=== PATIENT | male | born 1960 | race Caucasian/White ===

== ENCOUNTER 2017-08-19 09:09 | Emergency (ER) | payer SELFPAY ==
--- NOTE | 2017-08-19 09:28 | ED ---
Respiratory - HPI Summary HPI Summary: Patient presents to the ED with cough, congestion and feeling fatigued. Denies any flu contacts. Endorses sick contacts () who was diagnosed with a sinus infection recently. He denies any nasal congestion or sinus pressure. Denies any visual changes or headaches. Symptoms are aggravated by nothing, relieved with nothing. He has not tried anything [id number] for relief. Symptoms began 1 week ago, but worsened this morning. He states he was sent here by his work for a checkup since he was coughing. 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 He denies any chest pain, shortness of breath, weakness, fever, sweats, chills. Borderline type II diabetic and takes 5 mg glipizide. History of hypertension and is on 25 mg metoprolol. PCP is Dr. Ledesma. Previous smoker, quit 2-1/2 years ago. - History of Current Complaint Chief Complaint: EDFluSymptoms Stated Complaint: FLU LIKE SYMPTOMS Time Seen by Provider: 08/19/17 09:18 Hx Obtained From: Patient Onset/Duration: Gradual Onset Timing: Constant Initial Severity: Moderate Current Severity: Moderate Pain Intensity: 0 Character: Cough (Nonproductive) Sputum Amount: None Aggravating Factor(s): URI Alleviating Factor(s): Nothing Associated Signs and Symptoms: Negative - Risk Factors Status Asthmaticus Risk Factors: Negative Pulmonary Embolism Risk Factors: Negative Cardiac Risk Factors: Hypertension, Smoking, Diabetes, Elevated Lipids Pseudomonas Risk Factors: Negative Tuberculosis Risk Factors: Negative - Allergy/Home Medications Allergies/Adverse Reactions: Allergies Allergy/AdvReac Type Severity Reaction Status Date / Time Penicillins Allergy Rash Verified 08/19/17 09:14 PMH/Surg Hx/FS Hx/Imm Hx Previously Healthy: Yes Infectious Disease History: No Infectious Disease History: Denies: Traveled Outside the [place] in Last 30 Days - Social History Occupation: Employed Full-time Lives: With Family Alcohol Use: None Hx Substance Use: No Substance Use Type: Reports: None Hx Tobacco Use: Yes Smoking Status (MU): Former Smoker Review of Systems Constitutional: Negative Negative: Fever, Chills, Fatigue, Skin Diaphoresis Eyes: Negative Respiratory: Negative Positive: Cough Positive: no symptoms reported, see HPI Musculoskeletal: Negative Skin: Negative Neurological: Negative All Other Systems Reviewed And Are Negative: Yes Physical Exam Triage Information Reviewed: Yes Vital Signs On Initial Exam: Initial Vitals Temp Pulse Resp BP Pulse Ox 98.0 F 76 16 147/107 95 08/19/17 09:14 08/19/17 09:14 08/19/17 09:14 08/19/17 09:14 08/19/17 09:14 Vital Signs Reviewed: Yes Appearance: Positive: Well-Appearing, Well-Nourished Head/Face: Positive: Normal Head/Face Inspection Eyes: Positive: EOMI, MEHUL, Conjunctiva Clear Neck: Positive: Supple, No Lymphadenopathy Respiratory/Lung Sounds: Positive: Clear to Auscultation, Breath Sounds Present Cardiovascular: Positive: RRR, Pulses are Symmetrical in both Upper and Lower Extremities Musculoskeletal: Positive: Normal, Strength/ROM Intact Neurological: Positive: Speech Normal Psychiatric: Positive: Normal, Affect/Mood Appropriate AVPU Assessment: Alert Diagnostics - Vital Signs Vital Signs Temp Pulse Resp BP Pulse Ox 08/19/17 09:14 98.0 F 76 16 147/107 95 - Laboratory Lab Statement: Any lab studies that have been ordered have been reviewed, and results considered in the medical decision making process. Disposition - Course Course Of Treatment: The course of treatment, the patient is evaluated for chest congestion, cough and possibly flu exposure. Flu swab obtained. X-ray obtained. Lungs clear to auscultation bilaterally. No fevers, sweats, chills or other signs of systemic illness. Labs not obtained. IMPRESSION: Nonspecific pattern which could represent sequela of chronic obstructive lung. disease or potentially atypical bronchopneumonia. Correlate with clinical assessment. Will treat with azithromycin. Patient is okay for discharge at this time and voices no concerns. No given for work. - Diagnoses Provider Diagnoses: Acute bronchitis Discharge - Discharge Plan Condition: Stable Disposition: HOME Prescriptions: Azithromycin TAB* [Zithromax TAB (Z-YAMILKA) 250 mg #6 tabs] 250 mg PO DAILY #4 tab Patient Education Materials: Acute Bronchitis (ED) Forms: *Work Release Referrals: Baltazar TORRES,Jesús Maddox [Primary Care Provider] - Additional Instructions: Please follow-up with Dr. Ledesma Humidifier in the home will help Tea, honey, lemon will help with any throat discomfort Azithromycin take 1 tab daily for 4 days Start this medication tomorrow Note is given for 1 day off work
--- NOTE | 2017-08-19 10:40 | RAD ---
INDICATION: Few days flulike symptoms; cough and congestion. History of tobacco use. COMPARISON: No relevant prior exams available on the [facility] PACS for comparison. TECHNIQUE: Dual energy PA and routine lateral views of the chest were obtained. REPORT: Mild prominence of the interstitial markings. No compelling focal alveolar consolidation. Clear pleural spaces. Negative for pneumothorax. The heart, pulmonary vasculature, and mediastinal contours are unremarkable. IMPRESSION: Nonspecific pattern which could represent sequela of chronic obstructive lung disease or potentially atypical bronchopneumonia. Correlate with clinical assessment.
[2017-08-19] MEDS ORDERED: Azithromycin TAB* 250 MG PO ONE (11:16)
[2017-08-19 11:40] VITALS: BP 121/83
== END 2017-08-19 11:39 | disposition home or self-care (01) ==
LOC: ED 09:09
DX: J20.9 Acute bronchitis, unspecified (principal); I10 Essential (primary) hypertension; Z79.01 Long term (current) use of anticoagulants; Z86.711 Personal history of pulmonary embolism; Z87.891 Personal history of nicotine dependence
CPT/HCPCS: 71046; 87502; 99282; A9270-GY

== ENCOUNTER 2017-08-22 14:41 | Emergency (ER) | payer SELFPAY ==
--- NOTE | 2017-08-22 17:28 | RAD ---
INDICATION: Cough COMPARISON: Similar chest x-ray dated August 19, 2017 TECHNIQUE: PA and lateral views of the chest were obtained. FINDINGS: The heart and mediastinum are normal in size and contour. There are increased interstitial markings bilaterally similar in appearance to the prior chest x-ray. There is no focal lobar consolidation. There is no evidence of large pleural effusion. Visualized bones are normal for the patient's age. There is no radiographic evidence of free air beneath the diaphragm IMPRESSION: CHEST X-RAY FINDINGS IN THE CHRONIC SETTING COULD BE DUE TO EARLY CHANGES OF INTERSTITIAL LUNG DISEASE. IN THE ACUTE SETTING THIS APPEARANCE COULD BE ASSOCIATED WITH PULMONARY EDEMA, PNEUMONITIS OR ATYPICAL PNEUMONIA.
--- NOTE | 2017-08-22 18:02 | ED ---
Respiratory - HPI Summary HPI Summary: 57-year-old male presents with cough for the past week. He admits to fatigue. He admits to shortness of breath and chest tightness. He has been using an inhaler and a Z-Uyng with minimal relief. He states that pain feels like rib pain. He has a history of PE and is currently on lifelong Plavix for such. He states this pain does not feel like such. He denies any history of asthma or COPD. He was a smoker. He denies any sinus congestion. He denies any headache. He denies any fever. He states he is here because the cough does not seem to be getting any better and the rib pain is new. He is a diabetic. - History of Current Complaint Chief Complaint: EDFluSymptoms Stated Complaint: COUGH/CHEST TIGHTNESS Time Seen by Provider: 08/22/17 17:16 Pain Intensity: 5 - Allergy/Home Medications Allergies/Adverse Reactions: Allergies Allergy/AdvReac Type Severity Reaction Status Date / Time Penicillins Allergy Rash Verified 08/19/17 09:14 PMH/Surg Hx/FS Hx/Imm Hx Endocrine/Hematology History: Reports: Hx Anticoagulant Therapy, Hx Diabetes Cardiovascular History: Reports: Hx Hypertension Infectious Disease History: No Infectious Disease History: Denies: Traveled Outside the [place] in Last 30 Days - Family History Known Family History: Positive: Hypertension - Social History Alcohol Use: None Hx Substance Use: No Substance Use Type: Reports: None Hx Tobacco Use: Yes Smoking Status (MU): Former Smoker Review of Systems Negative: Fever Positive: Chest Pain Positive: Shortness Of Breath, Cough Negative: Abdominal Pain All Other Systems Reviewed And Are Negative: Yes Physical Exam Triage Information Reviewed: Yes Vital Signs On Initial Exam: Initial Vitals Temp Pulse Resp BP Pulse Ox 98.3 F 86 17 143/89 97 08/22/17 14:46 08/22/17 14:46 08/22/17 14:46 08/22/17 14:46 08/22/17 14:46 Vital Signs Reviewed: Yes Appearance: Positive: Well-Appearing Skin: Positive: Warm, Dry Head/Face: Positive: Normal Head/Face Inspection Eyes: Positive: Normal, EOMI, MEHUL, Conjunctiva Clear ENT: Positive: Normal ENT inspection, Pharynx normal, TMs normal Respiratory/Lung Sounds: Positive: Clear to Auscultation, Breath Sounds Present Cardiovascular: Positive: Normal, RRR Abdomen Description: Positive: Nontender, Soft Bowel Sounds: Positive: Present Musculoskeletal: Positive: Normal Neurological: Positive: Normal Psychiatric: Positive: Normal Diagnostics - Vital Signs Vital Signs Temp Pulse Resp BP Pulse Ox 08/22/17 16:33 98.6 F 88 18 152/93 96 08/22/17 14:46 98.3 F 86 17 143/89 97 - Laboratory Lab Results: Lab Results 08/22/17 Range/Units 17:00 Influenza A (Rapid) Negative (Negative) Influenza B (Rapid) Negative (Negative) Result Diagrams: 08/22/17 18:22 08/22/17 18:22 Lab Statement: Any lab studies that have been ordered have been reviewed, and results considered in the medical decision making process. - Radiology chest Xray Interpretation: Positive (See Comments) - IMPRESSION: CHEST X-RAY FINDINGS IN THE CHRONIC SETTING COULD BE DUE TO EARLY CHANGES OF INTERSTITIAL LUNG DISEASE. IN THE ACUTE SETTING THIS APPEARANCE COULD BE ASSOCIATED WITH PULMONARY EDEMA, PNEUMONITIS OR ATYPICAL PNEUMONIA. Radiology Interpretation Completed By: Radiologist - EKG No standard instances Cardiac Rate: NL EKG Rhythm: Sinus Rhythm EKG Interpretation: sinus rhythm Disposition - Course Course Of Treatment: 57-year-old male presents with cough for the past week. He admits to fatigue. He admits to shortness of breath and chest tightness. He has been using an inhaler and a Z-Yung with minimal relief. He states that pain feels like rib pain. He has a history of PE and is currently on lifelong Plavix for such. He states this pain does not feel like such. He denies any history of asthma or COPD. He was a smoker. He denies any sinus congestion. He denies any headache. He denies any fever. He states he is here because the cough does not seem to be getting any better and the rib pain is new. He is a diabetic. on exam lungs CTA. ekg normal. chest xray possible atypical pneumonia. patient already on zpack. will have follow up with primary. patient understand and agrees with plan. - Differential Dx - Cardiopulmonary Differential Diagnoses - Cardiopulmonary: Bronchitis, Influenza, Lower Resp Infection - Diagnoses Provider Diagnoses: Bronchitis Discharge - Discharge Plan Condition: Good Disposition: HOME Prescriptions: Benzonatate CAP* [Tessalon 100 MG CAP*] 100 mg PO TID PRN #21 cap PRN Reason: Cough Patient Education Materials: Acute Bronchitis (ED) Forms: *Work Release Referrals: Baltazar TORRES,Jesús Maddox [Primary Care Provider] - Additional Instructions: Use Tessalon three times a day for cough Use inhaler one puff every 4 hours for cough as needed Use saline in the nose Use humidifier or place warm bowls of water around the room for cough Cough can last up to 4 weeks Follow up with primary care physician in 5 days Return to ED if develop any new or worsening symptoms
[2017-08-22 18:31] LABS: ABS Basophils 0.2 10^3/ul (0-0.2); ABS Eosinophils 0.3 10^3/ul (0-0.6); ABS Lymphocytes 2.9 10^3/ul (1.0-4.8); ABS Monocytes 0.9 10^3/ul (0-0.8); ABS Neutrophils 6.3 10^3/ul (1.5-7.7); ABS Nucleated RBC 0 10^3/ul; Eosinophil % 3.2 % (0-6); Hematocrit 45 % (42-52); Hemoglobin 15.8 g/dl (14.0-18.0); Lymphocyte % 27.4 % (25-47); Mean Corpuscular HGB Conc 35 g/dl (31-36); Mean Corpuscular Hemoglobin 30 pg (27-31); Mean Corpuscular Volume 86 fL (80-94); Mean Platelet Volume 9 um3 (7.4-10.4); Nucleated Red Blood Cells % 0.1; Platelet Count 192 10^3/ul (150-450); Red Blood Count 5.25 10^6/ul (4.0-5.4); Red Cell Distribution Width 15 % (10.5-15); White Blood Count 10.7 10^3/ul (3.5-10.8)
[2017-08-22 18:50] LABS: EGFR Non-African American 66.9 (>60)
[2017-08-22] MEDS ORDERED: Benzonatate CAP* 100 MG PO ONE (19:01)
[2017-08-22 19:22] VITALS: BP 152/81
== END 2017-08-22 19:22 | disposition home or self-care (01) ==
LOC: ED 14:41
DX: J40 Bronchitis, not specified as acute or chronic (principal); Z87.891 Personal history of nicotine dependence; Z88.0 Allergy status to penicillin
CPT/HCPCS: 36415; 71046; 80053; 83880; 84484; 85025; 87502; 93005; 99281; A9270-GY

== ENCOUNTER 2017-10-09 15:34 | Emergency (ER) | payer OTHER ==
--- NOTE | 2017-10-09 16:42 | RAD ---
INDICATION: Chest pain COMPARISON: August 22, 2017 TECHNIQUE: PA and lateral dual-energy views were obtained. FINDINGS: Bones/Soft Tissues: There are no acute bony findings. Cardiomediastinal: The cardiomediastinal silhouette is normal. Lungs: There are no infiltrates. There is mild chronic interstitial change. Pleura: There are no pleural effusions. Other: None IMPRESSION: NO ACTIVE DISEASE.
[2017-10-09 17:02] LABS: ABS Basophils 0.1 10^3/ul (0-0.2); ABS Eosinophils 0.2 10^3/ul (0-0.6); ABS Lymphocytes 2.5 10^3/ul (1.0-4.8); ABS Monocytes 0.7 10^3/ul (0-0.8); ABS Neutrophils 8.7 10^3/ul (1.5-7.7); ABS Nucleated RBC 0 10^3/ul; Eosinophil % 1.7 % (0-6); Hematocrit 44 % (42-52); Hemoglobin 15.1 g/dl (14.0-18.0); Lymphocyte % 20.5 % (25-47); Mean Corpuscular HGB Conc 34 g/dl (31-36); Mean Corpuscular Hemoglobin 30 pg (27-31); Mean Corpuscular Volume 87 fL (80-94); Nucleated Red Blood Cells % 0; Platelet Count 192 10^3/ul (150-450); Red Blood Count 5.06 10^6/ul (4.0-5.4); Red Cell Distribution Width 14 % (10.5-15); White Blood Count 12.2 10^3/ul (3.5-10.8)
[2017-10-09 17:28] LABS: EGFR Non-African American 74.4 (>60)
[2017-10-09 18:14] LABS: Urine Appearance Clear; Urine Blood Negative (Negative); Urine Color Yellow; Urine Ketones Trace (Negative); Urine Protein Negative (Negative); Urine Specific Gravity 1.022 (1.010-1.030); Urine Urobilinogen Negative (Negative)
[2017-10-09 18:41] VITALS: BP 129/76
--- NOTE | 2017-10-13 08:02 | ED ---
Antony Gil Angela, scribed for Jeremiah Conteh MD on 10/09/17 at 1616 . Shortness of Breath - HPI Summary HPI Summary: This pt is a 57 y/o male presenting to [facility] c/o SOB that began yesterday morning. Pt describes SOB as dyspnea at rest. He has been using nebulizer with no relief. Pt denies LE pain, chest pain, abd pain. PMHx includes PE, DM, HTN, high cholesterol. Pt is currently on Xarelto. - History of Current Complaint Chief Complaint: EDShortnessOfBreath Time Seen by Provider: 10/09/17 16:03 Hx Obtained From: Patient Onset/Duration: Lasting Days - 1, Still Present Timing: Constant Current Severity: Moderate Dyspnea At: Rest Aggrevating Factors: Nothing Alleviating Factors: Nothing Associated Signs & Symptoms: Negative - Allergy/Home Medications Allergies/Adverse Reactions: Allergies Allergy/AdvReac Type Severity Reaction Status Date / Time Penicillins Allergy Rash Verified 10/09/17 17:35 Home Medications: Home Medications Lisinopril TAB* [Prinivil TAB 10 MG*] 1 tab PO DAILY 10/09/17 [History Confirmed 10/09/17] Metoprolol Succinate XL TAB* [Toprol XL TAB*] 1 tab PO DAILY 10/09/17 [History Confirmed 10/09/17] Rivaroxaban TAB(*) [Xarelto 10 mg (*)] 20 mg PO DAILY 10/09/17 [History Confirmed 10/09/17] glipiZIDE TAB* [Glucotrol TAB*] 5 mg PO DAILY 10/09/17 [History Confirmed ] PMH/Surg Hx/FS Hx/Imm Hx Endocrine/Hematology History: Reports: Hx Anticoagulant Therapy, Hx Diabetes Cardiovascular History: Reports: Hx Hypertension, Other Cardiovascular Problems/ Disorders - high cholesterol Respiratory History: Reports: Hx Pulmonary Embolism - x2 Infectious Disease History: No Infectious Disease History: Denies: Traveled Outside the [place] in Last 30 Days - Family History Known Family History: Positive: Hypertension - Social History Alcohol Use: None Hx Substance Use: No Substance Use Type: Reports: None Hx Tobacco Use: Yes Smoking Status (MU): Former Smoker Review of Systems Negative: Fever Eyes: Negative Negative: Chest Pain Positive: Shortness Of Breath Negative: Abdominal Pain Negative: Other - LE pain Neurological: Negative All Other Systems Reviewed And Are Negative: Yes Physical Exam - Summary Physical Exam Summary: VITAL SIGNS: Reviewed. GENERAL: Patient is an obese male who is lying comfortable in the stretcher. Patient is not in any acute respiratory distress. HEAD AND FACE: No signs of trauma. No ecchymosis, hematomas or skull depressions. No sinus tenderness. EYES: PERRLA, EOMI x 2, No injected conjunctiva, no nystagmus. EARS: Hearing grossly intact. Ear canals and tympanic membranes are within normal limits. MOUTH: Oropharynx within normal limits. NECK: Supple, trachea is midline, no adenopathy, no JVD, no carotid bruit, no c- spine tenderness, neck with full ROM. CHEST: Symmetric, no tenderness at palpation LUNGS: Clear to auscultation bilaterally. No wheezing or crackles. CVS: Regular rate and rhythm, S1 and S2 present, no murmurs or gallops appreciated. ABDOMEN: Soft, non-tender. No signs of distention. No rebound no guarding, and no masses palpated. Bowel sounds are normal. EXTREMITIES: FROM in all major joints, no edema, no cyanosis or clubbing. NEURO: Alert and oriented x 3. No acute neurological deficits. Speech is normal and follows commands. SKIN: Dry and warm Triage Information Reviewed: Yes Vital Signs On Initial Exam: Initial Vitals Temp Pulse Resp BP Pulse Ox 96.7 F 101 24 140/90 95 10/09/17 15:38 10/09/17 15:38 10/09/17 15:38 10/09/17 15:38 10/09/17 15:38 Vital Signs Reviewed: Yes Diagnostics - Vital Signs Vital Signs Temp Pulse Resp BP Pulse Ox 10/09/17 15:38 96.7 F 101 24 140/90 95 - Laboratory Result Diagrams: 10/09/17 16:40 10/09/17 16:40 Lab Statement: Any lab studies that have been ordered have been reviewed, and results considered in the medical decision making process. - Radiology Chest XR Xray Interpretation: No Acute Changes - IMPRESSION: No active disease. Dr. Conteh has reviewed this radiology report. Radiology Interpretation Completed By: Radiologist - EKG 15:40 Cardiac Rate: NL EKG Rhythm: Sinus Rhythm - at 94 bpm EKG Interpretation: No STEMI. Re-Evaluation - Re-Evaluation First Eval Re-Evaluation Time: 18:04 Comment: I reviewed the lab and XR results with the pt. Pt will be discharged home. Course/Dx - Course Assessment/Plan: This pt is a 57 y/o male presenting to [facility] c/o SOB that began yesterday morning. Pt reports dyspnea at rest. He has been using nebulizer with no relief. Pt denies LE pain, chest pain, abd pain. PMHx includes PE x2, HTN, high cholesterol. Pt is currently on Xarelto. Test results without any significant abnormalities except for WBC of 12.2, ABG pO2 of 64, O2 saturation of 96.2, glucose of 250. Chest XR shows no active disease. Therefore he will be discharged to home with follow up from his PCP. I discussed all the findings and test results with the patient. All questions were answered to patient satisfaction. There were no further complaints or concerns. He is instructed to return to the ED for any worsening or new symptoms. Pt is hemodynamically stable, alert and oriented x3. - Diagnoses Provider Diagnoses: Shortness of breath Discharge - Sign-Out/Discharge Documenting (check all that apply): Discharge - discharge to home - Discharge Plan Condition: Stable Disposition: HOME Patient Education Materials: Shortness of Breath (ED) Referrals: Antwon MCDONALD,Milly Cisse [Primary Care Provider] - Additional Instructions: Please follow up with your primary care provider. RETURN TO THE ED FOR ANY NEW OR WORSENING SYMPTOMS. The documentation as recorded by the Antony coon Angela accurately reflects the service I personally performed and the decisions made by me, Jeremiah Conteh MD.
== END 2017-10-09 18:40 | disposition home or self-care (01) ==
LOC: ED 15:34
DX: R06.02 Shortness of breath (principal)
CPT/HCPCS: 36415; 36600; 71046; 80053; 81003; 82553; 82803; 83605; 83880; 84484; 85025; 85379; 85730; 86140; 87040; 93005; 99284

== ENCOUNTER 2017-10-12 06:07 | Emergency (ER) | payer OTHER ==
[2017-10-12] MEDS ORDERED: Albuterol/Ipratropium NEB.SOL* Albuterol 2.5 MG/Ipratropium 0.5 MG 3 ML INH ONE (06:42)
[2017-10-12] MEDS ORDERED: predniSONE TAB* 20 MG PO ONE (06:43)
[2017-10-12] MEDS ORDERED: Levofloxacin TAB* 750 MG PO ONE (06:44)
[2017-10-12] MEDS ORDERED: Albuterol 2.5 MG/3 ML NEB.SOL* (0.083%) INH SCH (07:00)
--- NOTE | 2017-10-12 07:33 | ED ---
Annita Gil Nilda, scribed for Domenico Ac MD on 10/12/17 at 0647 . Shortness of Breath - HPI Summary HPI Summary: This patient is a 57 year old M presenting to [facility] accompanied by with a chief complaint of gradually worsening SOB at rest for the past few days. The patient rates the pain 0/10 in severity. Symptoms aggravated by deep inspiration. Symptoms alleviated by inhaler (albuterol) and nebulizer at home. Patient reports nonproductive cough and left sided chest discomfort when taking deep breathes. Pt states he is former smoker (discontinued smoking 2 years ago after smoking for 39 years). Pt was in ED 4 days ago for same symptoms, yielding negative CXR per medical record. Yesterday, pt saw technical fellow at [place] who told pt he had URI. Pt states hes never been Dx with COPD or emphysema. - History of Current Complaint Chief Complaint: EDShortnessOfBreath Time Seen by Provider: 10/12/17 06:17 Hx Obtained From: Patient, Medical Records Onset/Duration: Sudden Onset, Lasting Days, Still Present Timing: Constant Dyspnea At: Rest Aggrevating Factors: Deep Breaths Alleviating Factors: Bronchodilators Associated Signs & Symptoms: Cough (Nonproductive) - Allergy/Home Medications Allergies/Adverse Reactions: Allergies Allergy/AdvReac Type Severity Reaction Status Date / Time Penicillins Allergy Rash Verified 10/12/17 06:15 Home Medications: Home Medications Atorvastatin* [Lipitor*] 20 mg PO DAILY 10/12/17 [History Confirmed 10/12/17] PMH/Surg Hx/FS Hx/Imm Hx Endocrine/Hematology History: Reports: Hx Anticoagulant Therapy, Hx Diabetes Cardiovascular History: Reports: Hx Hypertension Respiratory History: Reports: Hx Asthma, Other Respiratory Problems/Disorders - HX PE 2016 Infectious Disease History: No Infectious Disease History: Denies: Traveled Outside the [place] in Last 30 Days - Family History Known Family History: Positive: Hypertension - Social History Alcohol Use: None Hx Substance Use: No Substance Use Type: Reports: None Hx Tobacco Use: Yes Smoking Status (MU): Former Smoker Review of Systems Positive: Chest Pain - left sided chest discomfort Positive: Shortness Of Breath, Cough All Other Systems Reviewed And Are Negative: Yes Physical Exam - Summary Physical Exam Summary: VITAL SIGNS: Reviewed. GENERAL: Patient is a well-developed and nourished male who is lying comfortable in the stretcher. Patient is not in any acute respiratory distress. HEAD AND FACE: No signs of trauma. No ecchymosis, hematomas or skull depressions. No sinus tenderness. EYES: PERRLA, EOMI x 2, No injected conjunctiva, no nystagmus. EARS: Hearing grossly intact. Ear canals and tympanic membranes are within normal limits. MOUTH: Oropharynx within normal limits. NECK: Supple, trachea is midline, no adenopathy, no JVD, no carotid bruit, no c- spine tenderness, neck with full ROM. CHEST: Symmetric, no tenderness at palpation LUNGS: Clear to auscultation bilaterally. No wheezing or crackles. Decreased breath sounds bilat. CVS: Regular rate and rhythm, S1 and S2 present, no murmurs or gallops appreciated. ABDOMEN: Soft, non-tender. No signs of distention. No rebound no guarding, and no masses palpated. Bowel sounds are normal. EXTREMITIES: FROM in all major joints, no edema, no cyanosis or clubbing. NEURO: Alert and oriented x 3. No acute neurological deficits. Speech is normal and follows commands. SKIN: Dry and warm Triage Information Reviewed: Yes Vital Signs On Initial Exam: Initial Vitals Temp Pulse Resp BP Pulse Ox 97.7 F 79 20 115/94 97 10/12/17 06:11 10/12/17 06:11 10/12/17 06:11 10/12/17 06:11 10/12/17 06:11 Vital Signs Reviewed: Yes Diagnostics - Vital Signs Vital Signs Temp Pulse Resp BP Pulse Ox 10/12/17 06:11 97.7 F 79 20 115/94 97 - Laboratory Lab Statement: Any lab studies that have been ordered have been reviewed, and results considered in the medical decision making process. Course/Dx - Course Assessment/Plan: 57 y/o with difficulty breathing and coughing past few days. Hx smoking but quit 2 years ago after smoking for 30-40 years. Exam reveals decreased breath sounds. Pt was in ED a few days ago for same symptoms and got full work up with negative D-dimer and negative CXR. He will be sent home with Levaquin and prednisone and follow up with PCP. Pt has albuterol and nebulizer at home. - Diagnoses Provider Diagnoses: Bronchitis Discharge - Sign-Out/Discharge Documenting (check all that apply): Discharge - home - Discharge Plan Condition: Stable Disposition: HOME Prescriptions: Levofloxacin TAB* [Levaquin TAB*] 750 mg PO DAILY #7 tab predniSONE TAB* [Deltasone TAB*] 40 mg PO DAILY #10 tab Patient Education Materials: Acute Bronchitis (ED) Forms: *Work Release Referrals: Antwon MCDONALD,Milly Cisse [Primary Care Provider] - 3 Days Additional Instructions: RETURN TO THE EMERGENCY DEPARTMENT FOR CHANGING OR WORSENING SYMPTOMS. The documentation as recorded by the Annita coon Nilda accurately reflects the service I personally performed and the decisions made by Osorio sharma Abdul, MD.
[2017-10-12 07:35] VITALS: BP 128/82
== END 2017-10-12 07:35 | disposition home or self-care (01) ==
LOC: ED 06:07
DX: J40 Bronchitis, not specified as acute or chronic (principal); R05 Cough; R06.02 Shortness of breath; R07.9 Chest pain, unspecified; Z87.891 Personal history of nicotine dependence
CPT/HCPCS: 94640; 99283; A9270-GY; J7512

== ENCOUNTER 2017-12-19 07:16 | Observation (INO) | payer MEDICAID, OTHER ==
[2017-12-19] MEDS ORDERED: methylPREDNISolone 125 MG* 2 ML VIAL IV ONE (07:23)
[2017-12-19 08:05] LABS: ABS Basophils 0 10^3/ul (0-0.2); ABS Eosinophils 0.1 10^3/ul (0-0.6); ABS Monocytes 0.5 10^3/ul (0-0.8); ABS Neutrophils 13.1 10^3/ul (1.5-7.7); ABS Nucleated RBC 0 10^3/ul; Eosinophil % 0.8 % (0-6); Hematocrit 48 % (42-52); Hemoglobin 16.8 g/dl (14.0-18.0); Lymphocyte % 6.5 % (25-47); Mean Corpuscular HGB Conc 35 g/dl (31-36); Mean Corpuscular Hemoglobin 30 pg (27-31); Mean Corpuscular Volume 87 fL (80-94); Mean Platelet Volume 9.3 um3 (7.4-10.4); Nucleated Red Blood Cells % 0; Platelet Count 185 10^3/ul (150-450); Red Blood Count 5.54 10^6/ul (4.00-5.40); Red Cell Distribution Width 14 % (10.5-15); White Blood Count 14.7 10^3/ul (3.5-10.8)
--- NOTE | 2017-12-19 08:17 | RAD ---
INDICATION: Short of breath COMPARISON: October 09, 2017 TECHNIQUE: An AP seated portable view obtained at 0811 hours is submitted. FINDINGS: Bones/Soft Tissues: There are no acute bony findings. Cardiomediastinal: The cardiomediastinal silhouette is normal. Lungs: There are no infiltrates. Examination is mildly expiratory. Pleura: There are no pleural effusions. Other: There is mild elevation right hemidiaphragm. IMPRESSION: MILDLY EXPIRATORY EXAMINATION. NO ACTIVE DISEASE.
[2017-12-19 08:26] LABS: EGFR Non-African American 80.7 (>60)
[2017-12-19 08:52] LABS: Urine Appearance Clear; Urine Blood Negative (Negative); Urine Color Yellow; Urine Ketones Negative (Negative); Urine Protein Negative (Negative); Urine Specific Gravity 1.021 (1.010-1.030); Urine Urobilinogen Negative (Negative)
[2017-12-19] MEDS: Albuterol/Ipratropium NEB.SOL* Albuterol 2.5 MG/Ipratropium 0.5 MG 3 ML INH SCH ×3 (08:56→11:56)
[2017-12-19 09:05] LABS: INR 1.16 (0.77-1.02)
[2017-12-19] MEDS ORDERED: Levofloxacin TAB* 250 MG PO ONE (09:53)
[2017-12-19] MEDS ORDERED: Albuterol/Ipratropium NEB.SOL* Albuterol 2.5 MG/Ipratropium 0.5 MG 3 ML INH ONE (10:14)
[2017-12-19] MEDS ORDERED: Albuterol/Ipratropium NEB.SOL* Albuterol 2.5 MG/Ipratropium 0.5 MG 3 ML INH PRN (10:45)
--- NOTE | 2017-12-19 10:45 | ED ---
Antony Gil Angela, scribed for Jeremiah Conteh MD on 12/19/17 at 0748 . Shortness of Breath - HPI Summary HPI Summary: This pt is a 57 y/o male presenting to [facility] c/o SOB since this morning. Pt reports he woke up this morning at 03:00 to get ready for work when he began to feel SOB. He states he did all his breathing treatments, including nebulizer and rescue inhaler, with no relief. Pt notes he is currently uncomfortable. Denies chest pain, fever, dizziness. PMHx includes COPD, PE. Pt is a former smoker, quit 3 years ago. - History of Current Complaint Chief Complaint: EDShortnessOfBreath Time Seen by Provider: 12/19/17 07:23 Hx Obtained From: Patient Onset/Duration: Lasting Hours, Still Present Current Severity: Severe Dyspnea At: Rest Aggrevating Factors: Nothing Alleviating Factors: Nothing Associated Signs & Symptoms: Negative - Allergy/Home Medications Allergies/Adverse Reactions: Allergies Allergy/AdvReac Type Severity Reaction Status Date / Time Penicillins Allergy Rash Verified 12/19/17 07:23 PMH/Surg Hx/FS Hx/Imm Hx Endocrine/Hematology History: Reports: Hx Anticoagulant Therapy, Hx Diabetes Cardiovascular History: Reports: Hx Hypertension Respiratory History: Reports: Hx Asthma, Hx Chronic Obstructive Pulmonary Disease (COPD), Other Respiratory Problems/Disorders - HX PE 2016 - Immunization History Immunizations Up to Date: Yes Infectious Disease History: No Infectious Disease History: Denies: Traveled Outside the [place] in Last 30 Days - Family History Known Family History: Positive: Hypertension - Social History Alcohol Use: None Hx Substance Use: No Substance Use Type: Reports: None Hx Tobacco Use: Yes Smoking Status (MU): Former Smoker Review of Systems Negative: Fever, Chills Negative: Chest Pain Positive: Shortness Of Breath Negative: Vomiting, Nausea Genitourinary: Negative Musculoskeletal: Negative Neurological: Negative - dizziness All Other Systems Reviewed And Are Negative: Yes Physical Exam - Summary Physical Exam Summary: VITAL SIGNS: Reviewed. GENERAL: Patient is a well-developed and nourished male who is lying comfortable in the stretcher. Patient is not in any acute respiratory distress. HEAD AND FACE: No signs of trauma. No ecchymosis, hematomas or skull depressions. No sinus tenderness. EYES: PERRLA, EOMI x 2, No injected conjunctiva, no nystagmus. EARS: Hearing grossly intact. Ear canals and tympanic membranes are within normal limits. MOUTH: Oropharynx within normal limits. NECK: Supple, trachea is midline, no adenopathy, no JVD, no carotid bruit, no c- spine tenderness, neck with full ROM. CHEST: Symmetric, no tenderness at palpation LUNGS: Decreased breath sounds. No wheezing. CVS: Regular rate and rhythm, S1 and S2 present, no murmurs or gallops appreciated. ABDOMEN: Soft, non-tender. No signs of distention. No rebound no guarding, and no masses palpated. Bowel sounds are normal. EXTREMITIES: FROM in all major joints, no edema, no cyanosis or clubbing. NEURO: Alert and oriented x 3. No acute neurological deficits. Speech is normal and follows commands. SKIN: Dry and warm GCS: 15 Triage Information Reviewed: Yes Vital Signs On Initial Exam: Initial Vitals Temp Pulse Resp BP Pulse Ox 97.8 F 106 22 157/113 94 12/19/17 07:21 12/19/17 07:21 12/19/17 07:21 12/19/17 07:21 12/19/17 07:21 Vital Signs Reviewed: Yes Diagnostics - Vital Signs Vital Signs Temp Pulse Resp BP Pulse Ox 12/19/17 07:27 107 95 12/19/17 07:25 108 145/111 95 12/19/17 07:21 97.8 F 106 22 157/113 94 - Laboratory Lab Results: Lab Results 12/19/17 12/19/17 12/19/17 Range/Units 07:41 07:41 07:41 WBC 14.7 H (3.5-10.8) 10^3/ul RBC 5.54 H (4.00-5.40) 10^6/ul Hgb 16.8 (14.0-18.0) g/dl Hct 48 (42-52) % MCV 87 (80-94) fL MCH 30 (27-31) pg MCHC 35 (31-36) g/dl RDW 14 (10.5-15) % Plt Count 185 (150-450) 10^3/ul MPV 9.3 (7.4-10.4) um3 Neut % (Auto) 89.2 H (38-83) % Lymph % (Auto) 6.5 L (25-47) % Park % (Auto) 3.3 (0-7) % Eos % (Auto) 0.8 (0-6) % Baso % (Auto) 0.2 (0-2) % Absolute Neuts (auto) 13.1 H (1.5-7.7) 10^3/ul Absolute Lymphs (auto) 1.0 (1.0-4.8) 10^3/ul Absolute Monos (auto) 0.5 (0-0.8) 10^3/ul Absolute Eos (auto) 0.1 (0-0.6) 10^3/ul Absolute Basos (auto) 0 (0-0.2) 10^3/ul Absolute Nucleated RBC 0 10^3/ul Nucleated RBC % 0 INR (Anticoag Therapy) (0.77-1.02) D-Dimer, Quantitative (Less Than 230) ng/mL ABG pH (7.35-7.45) ABG pCO2 (35-45) mmHg ABG pO2 (80-100) mmHg ABG HCO3 (19-31) mmol/L ABG O2 Saturation (95-98) % ABG Base Excess (-2.0-2.0) Sodium 137 L (139-145) mmol/L Potassium 4.2 (3.5-5.0) mmol/L Chloride 105 (101-111) mmol/L Carbon Dioxide 20 L (22-32) mmol/L Anion Gap 12 H (2-11) mmol/L BUN 16 (6-24) mg/dL Creatinine 0.96 (0.67-1.17) mg/dL Est GFR ( Amer) 103.8 (>60) Est GFR (Non-Af Amer) 80.7 (>60) BUN/Creatinine Ratio 16.7 (8-20) Glucose 171 H (70-100) mg/dL Lactic Acid 2.1 H* (0.5-2.0) mmol/L Calcium 9.4 (8.6-10.3) mg/dL Total Bilirubin 1.40 H (0.2-1.0) mg/dL AST 37 (13-39) U/L ALT 42 (7-52) U/L Alkaline Phosphatase 58 (34-104) U/L Total Creatine Kinase 167 (10-223) U/L CK-MB (CK-2) 2.0 (0.6-6.3) ng/mL Troponin I 0.00 (<0.04) ng/mL C-Reactive Protein 8.19 H (< 5.00) mg/L B-Natriuretic Peptide ( - 100) pg/mL Total Protein 7.4 (6.4-8.9) g/dL Albumin 4.3 (3.2-5.2) g/dL Globulin 3.1 (2-4) g/dL Albumin/Globulin Ratio 1.4 (1-3) Triglycerides 234 mg/dL Cholesterol 114 mg/dL LDL Cholesterol 39 mg/dL HDL Cholesterol 27.8 mg/dL Urine Color Urine Appearance Urine pH (5-9) Ur Specific Weir (1.010-1.030) Urine Protein (Negative) Urine Ketones (Negative) Urine Blood (Negative) Urine Nitrate (Negative) Urine Bilirubin (Negative) Urine Urobilinogen (Negative) Ur Leukocyte Esterase (Negative) Urine Glucose (Negative) 12/19/17 12/19/17 12/19/17 Range/Units 07:41 08:41 08:47 WBC (3.5-10.8) 10^3/ul RBC (4.00-5.40) 10^6/ul Hgb (14.0-18.0) g/dl Hct (42-52) % MCV (80-94) fL MCH (27-31) pg MCHC (31-36) g/dl RDW (10.5-15) % Plt Count (150-450) 10^3/ul MPV (7.4-10.4) um3 Neut % (Auto) (38-83) % Lymph % (Auto) (25-47) % Park % (Auto) (0-7) % Eos % (Auto) (0-6) % Baso % (Auto) (0-2) % Absolute Neuts (auto) (1.5-7.7) 10^3/ul Absolute Lymphs (auto) (1.0-4.8) 10^3/ul Absolute Monos (auto) (0-0.8) 10^3/ul Absolute Eos (auto) (0-0.6) 10^3/ul Absolute Basos (auto) (0-0.2) 10^3/ul Absolute Nucleated RBC 10^3/ul Nucleated RBC % INR (Anticoag Therapy) 1.16 H (0.77-1.02) D-Dimer, Quantitative < 200 (Less Than 230) ng/mL ABG pH (7.35-7.45) ABG pCO2 (35-45) mmHg ABG pO2 (80-100) mmHg ABG HCO3 (19-31) mmol/L ABG O2 Saturation (95-98) % ABG Base Excess (-2.0-2.0) Sodium (139-145) mmol/L Potassium (3.5-5.0) mmol/L Chloride (101-111) mmol/L Carbon Dioxide (22-32) mmol/L Anion Gap (2-11) mmol/L BUN (6-24) mg/dL Creatinine (0.67-1.17) mg/dL Est GFR ( Amer) (>60) Est GFR (Non-Af Amer) (>60) BUN/Creatinine Ratio (8-20) Glucose (70-100) mg/dL Lactic Acid (0.5-2.0) mmol/L Calcium (8.6-10.3) mg/dL Total Bilirubin (0.2-1.0) mg/dL AST (13-39) U/L ALT (7-52) U/L Alkaline Phosphatase (34-104) U/L Total Creatine Kinase (10-223) U/L CK-MB (CK-2) (0.6-6.3) ng/mL Troponin I (<0.04) ng/mL C-Reactive Protein (< 5.00) mg/L B-Natriuretic Peptide 326 H ( - 100) pg/mL Total Protein (6.4-8.9) g/dL Albumin (3.2-5.2) g/dL Globulin (2-4) g/dL Albumin/Globulin Ratio (1-3) Triglycerides mg/dL Cholesterol mg/dL LDL Cholesterol mg/dL HDL Cholesterol mg/dL Urine Color Yellow Urine Appearance Clear Urine pH 5.0 (5-9) Ur Specific Weir 1.021 (1.010-1.030) Urine Protein Negative (Negative) Urine Ketones Negative (Negative) Urine Blood Negative (Negative) Urine Nitrate Negative (Negative) Urine Bilirubin Negative (Negative) Urine Urobilinogen Negative (Negative) Ur Leukocyte Esterase Negative (Negative) Urine Glucose Negative (Negative) 12/19/17 Range/Units 09:00 WBC (3.5-10.8) 10^3/ul RBC (4.00-5.40) 10^6/ul Hgb (14.0-18.0) g/dl Hct (42-52) % MCV (80-94) fL MCH (27-31) pg MCHC (31-36) g/dl RDW (10.5-15) % Plt Count (150-450) 10^3/ul MPV (7.4-10.4) um3 Neut % (Auto) (38-83) % Lymph % (Auto) (25-47) % Park % (Auto) (0-7) % Eos % (Auto) (0-6) % Baso % (Auto) (0-2) % Absolute Neuts (auto) (1.5-7.7) 10^3/ul Absolute Lymphs (auto) (1.0-4.8) 10^3/ul Absolute Monos (auto) (0-0.8) 10^3/ul Absolute Eos (auto) (0-0.6) 10^3/ul Absolute Basos (auto) (0-0.2) 10^3/ul Absolute Nucleated RBC 10^3/ul Nucleated RBC % INR (Anticoag Therapy) (0.77-1.02) D-Dimer, Quantitative (Less Than 230) ng/mL ABG pH 7.42 (7.35-7.45) ABG pCO2 32 L (35-45) mmHg ABG pO2 71 L (80-100) mmHg ABG HCO3 22.8 (19-31) mmol/L ABG O2 Saturation 96.9 (95-98) % ABG Base Excess -2.6 L (-2.0-2.0) Sodium (139-145) mmol/L Potassium (3.5-5.0) mmol/L Chloride (101-111) mmol/L Carbon Dioxide (22-32) mmol/L Anion Gap (2-11) mmol/L BUN (6-24) mg/dL Creatinine (0.67-1.17) mg/dL Est GFR ( Amer) (>60) Est GFR (Non-Af Amer) (>60) BUN/Creatinine Ratio (8-20) Glucose (70-100) mg/dL Lactic Acid (0.5-2.0) mmol/L Calcium (8.6-10.3) mg/dL Total Bilirubin (0.2-1.0) mg/dL AST (13-39) U/L ALT (7-52) U/L Alkaline Phosphatase (34-104) U/L Total Creatine Kinase (10-223) U/L CK-MB (CK-2) (0.6-6.3) ng/mL Troponin I (<0.04) ng/mL C-Reactive Protein (< 5.00) mg/L B-Natriuretic Peptide ( - 100) pg/mL Total Protein (6.4-8.9) g/dL Albumin (3.2-5.2) g/dL Globulin (2-4) g/dL Albumin/Globulin Ratio (1-3) Triglycerides mg/dL Cholesterol mg/dL LDL Cholesterol mg/dL HDL Cholesterol mg/dL Urine Color Urine Appearance Urine pH (5-9) Ur Specific Weir (1.010-1.030) Urine Protein (Negative) Urine Ketones (Negative) Urine Blood (Negative) Urine Nitrate (Negative) Urine Bilirubin (Negative) Urine Urobilinogen (Negative) Ur Leukocyte Esterase (Negative) Urine Glucose (Negative) Result Diagrams: 12/19/17 07:41 12/19/17 07:41 Lab Statement: Any lab studies that have been ordered have been reviewed, and results considered in the medical decision making process. - Radiology Chest XR Xray Interpretation: No Acute Changes - IMPRESSION: Mildly expiratory examination. No active disease. Dr. Conteh has reviewed this radiology report. Radiology Interpretation Completed By: Radiologist - EKG 07:26 Cardiac Rate: Tachycardia - at 106 bpm EKG Rhythm: Sinus Tachycardia EKG Interpretation: No ST elevations. Q wave in III. Normal axis. Re-Evaluation - Re-Evaluation First Eval Re-Evaluation Time: 10:12 Change: Unchanged Comment: He is tachycardic at 121 bpm. Pt is saturating between 90-92% on room air and is still SOB. Course/Dx - Course Assessment/Plan: Pt is a 57 y/o male who presents with SOB since this morning. Pt reports he woke up this morning at 03:00 to get ready for work when he began to feel SOB. He states he did all his breathing treatments, including nebulizer and rescue inhaler, with no relief. Pt notes he is currently uncomfortable. Denies chest pain, fever, dizziness. Test results without any significant abnormalities except for WBC of 14.7, glucose of 171, lactic acid is 2.1, CRP is 8.1, BNP is 326. Initially the pt was given duonebs and solu-Medrol, but the pt was still not feeling better, therefore I did an ABG. ABG shows pH of 7.42, pCO2 is 32, pO2 is 71, O2 saturation is 96. Urinalysis is negative for UTI. Chest XR shows mildly expiratory examination. No active disease. Because of the increased WBC and CRP and his history of COPD, I gave the pt Levaquin for possible bronchitis. In the re-assessment the pt is tachycardic between 120-121 bpm and hypoxic between 90-92% on room air. I did a D-dimer resulting in less than 200 which is negative, therefore there is no suspicion for PE. However due to the tachycardia and hypoxia I discussed the case with Dr. Waldrop, hospitalist , who accepted the pt for admission. Pt is hemodynamically stable, alert and oriented x3. - Diagnoses Differential Diagnosis/HQI/PQRI: Positive: Asthma, Bronchitis, CHF, COPD Exacerbation, Pneumonia Provider Diagnoses: COPD exacerbation - Physician Notifications Discussed Care of Patient With: Itzel Waldrop Time Discussed With Above Provider: 10:14 Instructed by Provider To: Other - I discussed pt care with Dr. Waldrop, hospitalist, who accepted the pt for admission. Discharge - Sign-Out/Discharge Documenting (check all that apply): Discharge/Admit/Transfer - Admit - Discharge Plan Condition: Stable Disposition: ADMITTED TO [facility] Referrals: Edwige Davis MD [Primary Care Provider] - - Billing Disposition and Condition Condition: STABLE Disposition: Admitted to [facility] The documentation as recorded by the Antony coon Angela accurately reflects the service I personally performed and the decisions made by me, Jeremiah Conteh MD.
[2017-12-19] MEDS ORDERED: Albuterol HFA INHALER* 8 gm MDI INH PRN (10:46)
[2017-12-19] MEDS ORDERED: Dextrose 50% Syringe 50 ML* 25 GM/50 ML SYRINGE IV PUSH PRN (10:47)
--- NOTE | 2017-12-19 12:34 | HP ---
CC: Dr. Davis * [facility] MEDICINE HISTORY AND PHYSICAL: DATE OF ADMISSION: 12/19/17 PRIMARY CARE PHYSICIAN: Dr. Davis. ATTENDING PHYSICIAN: Dr. Itzel Willis * (dictation provided by Elin Freitas NP ). CHIEF COMPLAINT: Shortness of breath. HISTORY OF PRESENT ILLNESS: Mr. Fink is a 57-year-old male with a past medical history of COPD, hyperlipidemia, hypertension, diabetes, and a PE in 2016 for which he is on Xarelto, who presents today to the hospital with concern for shortness of breath. Mr. Fink states that he was a smoker since the age of 19 and quit 3 years ago. He quit at that point as he developed a pulmonary embolism; he continues on Xarelto therapy for that indication. In October of this year, he was in our emergency room 2 times with concern for shortness of breath and was diagnosed with bronchitis after a negative workup for pulmonary embolism or other cause. The patient followed with his primary care physician, Dr. Davis, and went on for pulmonary function testing with Dr. cD. Per the report from Dr. Dc, the patient does not have a demonstrated obstructive defect, although it was not an adequate test due to the patient's inability to follow commands during the examination. The patient states that that episode of bronchitis resolved well; however, this morning, he had a sudden onset of shortness of breath at about 2:45 a.m. 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 to go to work, he became suddenly very short of breath after getting out of the shower. He used his nebulizer, but did not have significant reduction in his symptoms and therefore presented to the emergency room for evaluation. He denies any fevers, chills. He does not have a significant cough. He has no nausea, vomiting, diarrhea, or abdominal pain. He is tolerating oral intake well. In the emergency room, Mr. Fink had a chest x-ray, which showed no acute process. His vital signs were remarkable only for a tachycardia with the heart rate running between 100 and 120. He is not requiring oxygen at this time. His blood pressure is elevated slightly, running about 157/110. His labs are remarkable for white blood cell count of 14.7; however, CRP is only 8.19. He does have lactic acidosis with 2.1. BNP is 326. His blood gas does not demonstrate respiratory failure or hypercarbia as his pH is 7.42, his pCO2 is 32. The patient was given Solu-Medrol in the emergency room with some improvement in his symptoms. The patient continues to subjectively feel short of breath. PAST MEDICAL HISTORY: 1. COPD. 2. Hyperlipidemia. 3. Hypertension. 4. Type 2 diabetes, [id number]. 5. Pulmonary embolism, 2016, on continued Xarelto therapy. MEDICATIONS: Outpatient are: 1. Albuterol nebulizer p.r.n. 2. Glipizide 5 mg p.o. daily. 3. Atorvastatin 20 mg p.o. daily. 4. Metoprolol succinate 25 mg p.o. daily. 5. Rivaroxaban 20 mg p.o. daily. 6. Spiriva 18mcg inh. daily. 7. Albuterol MDI 1 inh. q.4.h. as needed for shortness of breath. 8. Albuterol via nebulizer as needed for shortness of breath. ALLERGIES: To PENICILLIN. FAMILY HISTORY: Patient states that his parent's young but he does not know the cause. SOCIAL HISTORY: No report of current tobacco use. The patient has at least a 30- pack-year history of smoking prior to his quitting in 2016. No report of drug use. He lives with his , Adela, who is his health care proxy. REVIEW OF SYSTEMS: A 14-point review of systems was completed with Mr. Fink and all others than mentioned above were negative. PHYSICAL EXAMINATION GENERAL: Mr. Fink is sitting up in bed. He is in no acute distress. He is wearing 2 L nasal cannula. VITAL SIGNS: Temperature 97.8, pulse rate 106, respiratory rate 22, O2 saturation 94% on room air, blood pressure 145/111. LUNGS: Have some minimal wheezing in the bases bilaterally. There is good aeration. There is no accessory muscle use. HEART: S1 and S2. No murmur, rub, or gallop and regular. ABDOMEN: Soft, nontender, with bowel sounds positive x4. EXTREMITIES: No cyanosis or edema. NEUROLOGIC: He is alert. He is oriented x3. He moves all extremities equally. There is no facial asymmetry or focal weakness. Extraocular movements are intact. SKIN: Intact. DIAGNOSTIC STUDIES/LABORATORY DATA: WBC 14.7, hemoglobin 16.8, hematocrit 48, platelet count 185. INR 1.16. D-dimer less than 200. ABG shows a pH of 7.42, pCO2 of 32, pO2 of 71, bicarb of 22.8. Sodium 137, potassium 4.2, chloride 105 , serum bicarbonate 20, BUN 16, creatinine is 0.96, glucose 171, lactic acid 2.1 , CRP 8.19. Troponin 0.00. BNP 326. The patient did have a lipid profile drawn as well, which shows his total cholesterol is 114, LDL 39, HDL 27.8. Urine shows no evidence of infection. Chest x-ray shows no acute intrathoracic process. The EKG shows a sinus tachycardia with a heart rate of about 105 and no evidence of ischemia. ASSESSMENT: Mr. Fink is a 57-year-old male with past medical history of COPD, hypertension, diabetes, and previous pulmonary embolism, on continuous Xarelto therapy, who presents to the emergency room with sudden onset of shortness of breath this morning consistent with a mild COPD exacerbation. Our plans are for observation in the hospital for the followin. Chronic obstructive pulmonary disease exacerbation: The patient has had some improvement in his symptoms in the emergency room, but continues to be somewhat short of breath at rest. Plans will be for observation overnight for continuation of therapy including Solu-Medrol, azithromycin, and nebulizer therapy as needed. The patient has had alternative sources of shortness of breath ruled out with a negative chest x-ray and a negative D-dimer as well as a negative brain natriuretic peptide. 2. Diabetes: Plan to hold glipizide and administer Lispro sliding scale insulin with meals. The patient will have a consistent carbohydrate diet. 3. Hypertension: The patient's blood pressure is elevated in the emergency room. Plan for now to continue metoprolol therapy, but we will add additional agents as needed based on clinical course. 4. Hyperlipidemia: Continue atorvastatin. 5. History of pulmonary embolism: Continue Xarelto. 6. Code status is full code. 7. Disposition to medical floor for observation. TIME SPENT: Approximately 60 minutes was spent on the admission of this patient , more than half the time spent with the patient at the bedside reviewing the events leading up to this hospitalization, performing the physical examination, and reviewing my plan of care. ELIN FREITAS NP [id number]/[facility] #: [id number] BENITA
[2017-12-19] MEDS ORDERED: Azithromycin TAB* 250 MG PO ONE (12:42)
[2017-12-19] MEDS: Insulin LISPRO* 1 UNITS UNIT SUBCUT SCH ×2 (12:55→17:47)
[2017-12-19] MEDS ORDERED: NS 0.9% 1000 ML* 1,000 ML IV ONE (13:49)
[2017-12-19] MEDS: NS 0.9% 1000 ML* 1,000 ML IV SCH (17:47)
[2017-12-19] MEDS: methylPREDNISolone SOD 40 MG* 1 ML VIAL IV SCH (20:31)
[2017-12-20] MEDS: NS 0.9% 1000 ML* 1,000 ML IV SCH (04:13)
[2017-12-20] MEDS: methylPREDNISolone SOD 40 MG* 1 ML VIAL IV SCH ×2 (04:55→12:24)
[2017-12-20] MEDS: Insulin LISPRO* 1 UNITS UNIT SUBCUT SCH ×2 (08:45→12:24)
[2017-12-20] MEDS ORDERED: Rivaroxaban TAB(*) 20 MG TAB PO SCH (09:00)
[2017-12-20] MEDS ORDERED: Metoprolol Succinate XL TAB* 25 MG PO SCH (09:00)
[2017-12-20] MEDS ORDERED: Atorvastatin* 20 MG TAB PO SCH (09:00)
[2017-12-20] MEDS ORDERED: Azithromycin TAB* 250 MG PO SCH (09:00)
[2017-12-20 12:23] VITALS: BP 149/81
--- NOTE | 2017-12-22 11:58 | DS ---
CC: Dr. Davis. DISCHARGE SUMMARY: DATE OF ADMISSION: 12/19/17. DATE OF DISCHARGE: 12/20/17. PRIMARY CARE PROVIDER: Dr. Davis. PRINCIPAL DIAGNOSIS: Probable chronic obstructive pulmonary disease exacerbation. SECONDARY DIAGNOSES: 1. Hyperlipidemia. 2. Hypertension. 3. Type 2 diabetes. 4. History of pulmonary embolism. DISCHARGE MEDICATIONS: 1. Spiriva one puff inhaled daily. 2. Albuterol 2 puffs inhaled q.4 hours p.r.n. shortness of breath. 3. Glipizide 5 mg p.o. daily. 4. Xarelto 20 mg p.o. daily. 5. Metoprolol XL 25 mg p.o. daily. 6. Lipitor 20 mg p.o. daily. 7. Prednisone 40 mg p.o. daily x 2 days and 30 mg x 2 days and 20 mg x 2 days and 10 mg x 2 days. 8. Azithromycin 250 mg p.o. daily x 4 tablets. HOSPITAL COURSE: Mr. Fink is a 57-year-old male who has been worked up for possible COPD with Dr. Manuel vicente, however, had inadequate pulmonary function testing to make this diagnosis, who presents to the emergency room with complaints of shortness of breath. The patient was treated for bronchitis in Ap ril of this year. This ultimately resolved. However, on the morning of admission, he developed sudde n onset of shortness of breath. Patient was admitted for probable COPD exacerbation. The patient malave d sudden improvement in his symptoms and was requesting to be discharged home on 12/20/17. The patie brigid was treated with Solu- Medrol, azithromycin and nebulizers in the hospital. The patient will cont inue on a short prednisone taper as well as azithromycin for 4 more days. The patient has been instr ucted to follow up with his primary care provider, Dr. Davis in the next 4 to 7 days. The patien t has been taken out of work through this coming . On the day of discharge, patient was awake, alert and oriented, sitting up in bed, in no acute distre ss. Cardiac exam reveals a normal S1, S2 with a regular rate and rhythm. His lungs are clear. Abdo men is soft, nontender, nondistended. The patient moves all 4 extremities symmetrically. At this po int, the patient is felt to be stable for discharge home. FOLLOWUP CONCERNS: The patient is being discharged home today, 12/20/17. ACTIVITY LEVEL: As tolerated. DIET: Heart healthy, diabetic. CONDITION ON DISCHARGE: Stable. TIME SPENT: Twenty five minutes was spent discharging this patient. [id number]/[facility] #: [id number]
== END 2017-12-20 14:20 | disposition home or self-care (01) ==
LOC: ED 07:16 → MED 10:25
PROVIDERS: ADMIT Internal Medicine; ATTEND Hospitalist
DX: R06.02 Shortness of breath (principal); J44.9 Chronic obstructive pulmonary disease, unspecified; E78.5 Hyperlipidemia, unspecified; I10 Essential (primary) hypertension; E11.9 Type 2 diabetes mellitus without complications; I26.99 Other pulmonary embolism without acute cor pulmonale; Z79.01 Long term (current) use of anticoagulants; Z87.891 Personal history of nicotine dependence
CPT/HCPCS: 36415; 71045; 80053; 80061; 81003; 82550; 82553; 82803; 83605; 83880; 84484; 85025; 85379; 85610; 86140; 87040; 93005; 94640; 96374; 99284; A9270-GY; G0378; J2920; J2930

== ENCOUNTER 2018-01-15 09:38 | Emergency (ER) | payer MEDICAID ==
--- NOTE | 2018-01-15 10:11 | ED ---
Dizziness - HPI Summary HPI Summary: Pt. is a 57-year-old male who presents emergency department for on and off dizziness times several weeks. Patient states he's been evaluated at [facility] and diagnosed with vertigo. He states he is not prescribed any medications. He states he's never had imaging of his brain before. Patient presents to the ER today for dizziness. He describes dizziness as the room spinning. He did take a medication for dizziness that his is prescribed and states it did help. They believe it is meclizine. He denies CP, SOB, numbness, tingling or weakness, recent illness, N/V/D, abd. pain. Past medical history of diabetes, pulmonary emboli, hypertension, high cholesterol. Patient is currently on Xarelto. Symptoms are moderate in severity. Movement makes symptoms worse. Rest makes symptoms better. 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 - Allergies/Home Medications Allergies/Adverse Reactions: Allergies Allergy/AdvReac Type Severity Reaction Status Date / Time Penicillins Allergy Rash Verified 01/16/18 08:32 PMH/Surg Hx/FS Hx/Imm Hx Previously Healthy: Yes Endocrine/Hematology History: Reports: Hx Anticoagulant Therapy, Hx Diabetes, Other Endocrine/Hematological Disorders - HLD Cardiovascular History: Reports: Hx Hypertension Respiratory History: Reports: Hx Asthma, Hx Chronic Obstructive Pulmonary Disease (COPD), Other Respiratory Problems/Disorders - HX PE 2016 Sensory History: Reports: Hx Contacts or Glasses Denies: Hx Hearing Aid Opthamlomology History: Reports: Hx Contacts or Glasses Infectious Disease History: No Infectious Disease History: Denies: Traveled Outside the [place] in Last 30 Days - Family History Known Family History: Positive: Hypertension - Social History Occupation: Unemployed Lives: With Family Alcohol Use: None Hx Substance Use: No Substance Use Type: Reports: None Hx Tobacco Use: Yes Smoking Status (MU): Former Smoker Review of Systems Constitutional: Negative Negative: Fever, Chills Eyes: Negative ENT: Negative Cardiovascular: Negative Negative: Palpitations, Chest Pain Respiratory: Negative Negative: Shortness Of Breath, Cough Gastrointestinal: Negative Genitourinary: Negative Musculoskeletal: Negative Skin: Negative Neurological: Other - Dizziness Negative: Headache, Weakness, Paresthesia, Numbness, Syncope, Slurred Speech All Other Systems Reviewed And Are Negative: Yes Physical Exam Triage Information Reviewed: Yes Vital Signs On Initial Exam: Initial Vitals Temp Pulse Resp BP Pulse Ox 98.0 F 72 17 103/86 96 01/15/18 09:38 01/15/18 09:38 01/15/18 09:38 01/15/18 09:38 01/15/18 09:38 Vital Signs Reviewed: Yes Appearance: Positive: Well-Appearing - Patient sitting up in bed in no acute distress. Very talkative. present. Skin: Positive: Warm, Dry Head/Face: Positive: Normal Head/Face Inspection Eyes: Positive: Normal ENT: Positive: TMs normal Neck: Positive: Supple Respiratory/Lung Sounds: Positive: Clear to Auscultation, Breath Sounds Present Cardiovascular: Positive: Normal, RRR Musculoskeletal: Positive: Normal, Strength/ROM Intact Neurological: Positive: Normal, CN Intact II-III, Normal Gait, Finger to Nose, Speech Normal. Negative: Cerebellar Dysfunction, Disoriented, Facial Droop, Slurred Speech, Pronator Drift Present Psychiatric: Positive: Affect/Mood Appropriate Diagnostics - Vital Signs Vital Signs Temp Pulse Resp BP Pulse Ox 01/15/18 09:38 98.0 F 72 17 103/86 96 - Laboratory Result Diagrams: 01/15/18 10:31 01/15/18 10:30 Lab Statement: Any lab studies that have been ordered have been reviewed, and results considered in the medical decision making process. Dizzy Course/Dx - Course Course Of Treatment: Pt. is a 57 y.o male who presents to the ER for intermittent dizziness. He has no neurological deficits. Since pt. has not had imaging yet for dizziness will obtain CT scan, labs, ECG and chest xray. Pt. is currently symptom free. Blood work is unremarkable. CT scan is negative for acute findings, reading per radiology. Patient ambulated without ataxia or difficulty. Suspect benign paroxysmal vertigo. Will prescribe meclizine. Advised patient to call his family doctor tomorrow for close follow-up appointment. He will return to the ER if symptoms change or worsen. Patient and understand and agree with plan. - Diagnoses Provider Diagnoses: Vertigo Discharge - Sign-Out/Discharge Documenting (check all that apply): Patient Departure - Discharge Plan Condition: Good Disposition: HOME Prescriptions: Meclizine TAB* [Antivert 12.5 TAB*] 25 mg PO TID PRN #20 tab PRN Reason: Vertigo Patient Education Materials: Vertigo (ED), Dizziness (ED) Forms: *Work Release Referrals: Edwige Davis MD [Primary Care Provider] - Additional Instructions: Call your PCP today for an appointment Meclizine as directed for dizziness Increase fluids Return to ER if symptoms change or worsen - Billing Disposition and Condition Condition: GOOD Disposition: Home
--- NOTE | 2018-01-15 10:39 | RAD ---
HISTORY: dizzy COMPARISONS: None TECHNIQUE: Multiple contiguous axial CT scans were obtained of the head without intravenous contrast. FINDINGS: HEMORRHAGE/INFARCT: There is no hemorrhage or acute infarct. MASSES/SHIFT: There is no mass or shift. EXTRA-AXIAL SPACES: There are no extra-axial fluid collections. SULCI AND VENTRICLES: The sulci and ventricles are normal in size and position for the patient's stated age. CEREBRUM: There are no focal parenchymal abnormalities. BRAINSTEM: There are no focal parenchymal abnormalities. CEREBELLUM: There are no focal parenchymal abnormalities. VESSELS: There is dolichoectasia of the vertebrobasilar system. There is calcification of the distal right vertebral artery and proximal basilar artery. PARANASAL SINUSES: The paranasal sinuses are clear. ORBITS: The orbits are unremarkable. BONES AND SOFT TISSUE: No bone or soft tissue abnormalities are noted. OTHER: None IMPRESSION: 1. NO ACUTE INTRACRANIAL PATHOLOGY. 2. 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
[2018-01-15 10:49] LABS: ABS Basophils 0.1 10^3/ul (0-0.2); ABS Eosinophils 0.2 10^3/ul (0-0.6); ABS Lymphocytes 2.5 10^3/ul (1.0-4.8); ABS Monocytes 0.5 10^3/ul (0-0.8); ABS Neutrophils 5.6 10^3/ul (1.5-7.7); ABS Nucleated RBC 0 10^3/ul; Eosinophil % 2.1 % (0-6); Hematocrit 43 % (42-52); Mean Corpuscular HGB Conc 35 g/dl (31-36); Mean Corpuscular Hemoglobin 30 pg (27-31); Mean Corpuscular Volume 87 fL (80-94); Mean Platelet Volume 8.6 um3 (7.4-10.4); Nucleated Red Blood Cells % 0.1; Platelet Count 183 10^3/ul (150-450); Red Blood Count 4.95 10^6/ul (4.00-5.40); Red Cell Distribution Width 14 % (10.5-15); White Blood Count 8.8 10^3/ul (3.5-10.8)
--- NOTE | 2018-01-15 10:50 | RAD ---
HISTORY: dizzy COMPARISONS: December 19, 2017 VIEWS: 1: frontal portable view of the chest at 10:20 AM. The right costophrenic angle is cut off. FINDINGS: LINES AND TUBES: None. CARDIOMEDIASTINAL SILHOUETTE: The cardiomediastinal silhouette is normal for portable technique. PLEURA: The left costophrenic angle is sharp. The right costophrenic angle is cut off. LUNG PARENCHYMA: The lungs are clear. ABDOMEN: The upper abdomen is clear. There is no subphrenic gas. BONES AND SOFT TISSUES: No bone or soft tissue abnormalities are noted. IMPRESSION: LIMITED STUDY. NO ACTIVE CARDIOPULMONARY DISEASE.
[2018-01-15 11:00] LABS: INR 1.25 (0.77-1.02)
[2018-01-15 11:17] LABS: EGFR Non-African American 80.7 (>60)
[2018-01-15 12:34] LABS: Urine Appearance Clear; Urine Blood Negative (Negative); Urine Color Yellow; Urine Ketones Negative (Negative); Urine Protein Negative (Negative); Urine Specific Gravity 1.011 (1.010-1.030); Urine Urobilinogen Negative (Negative)
[2018-01-15 13:16] VITALS: BP 121/76
== END 2018-01-15 12:45 | disposition home or self-care (01) ==
LOC: ED 09:38
DX: R42 Dizziness and giddiness (principal); I67.2 Cerebral atherosclerosis; Z87.891 Personal history of nicotine dependence; Z88.0 Allergy status to penicillin
CPT/HCPCS: 36415; 70450; 71045; 80053; 81003; 83735; 84484; 85025; 85610; 93005; 99283

== ENCOUNTER 2018-01-16 08:21 | Emergency (ER) | payer MEDICAID ==
[2018-01-16 09:21] VITALS: BP 137/96
--- NOTE | 2018-01-16 10:42 | ED ---
Dizziness - HPI Summary HPI Summary: Patient presenting to the ER today with complaints of medication side effects. Patient was seen in the ER yesterday by myself for vertigo. Workup was unremarkable. He was prescribed meclizine which improves symptoms. Patient states he took a tablet of meclizine last evening around 7:00 and feels that made him drowsy as he slept throughout the night. 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 In the ER patient denies dizziness. He states he did take a meclizine tablet about one hour ago and does not feel drowsy. No current modifying factors. Symptoms are minimal in severity. - History Of Current Complaint Chief Complaint: EDPrescriptionNeeded Stated Complaint: DIZZINESS Time Seen by Provider: 01/16/18 09:01 Hx Obtained From: Patient - Allergies/Home Medications Allergies/Adverse Reactions: Allergies Allergy/AdvReac Type Severity Reaction Status Date / Time Penicillins Allergy Rash Verified 01/16/18 08:32 PMH/Surg Hx/FS Hx/Imm Hx Previously Healthy: Yes Endocrine/Hematology History: Reports: Hx Anticoagulant Therapy, Hx Diabetes, Other Endocrine/Hematological Disorders - HLD Cardiovascular History: Reports: Hx Hypertension, Other Cardiovascular Problems/ Disorders - DIABETIC Respiratory History: Reports: Hx Asthma, Hx Chronic Obstructive Pulmonary Disease (COPD), Other Respiratory Problems/Disorders - HX PE 2016 Sensory History: Reports: Hx Contacts or Glasses Denies: Hx Hearing Aid Opthamlomology History: Reports: Hx Contacts or Glasses - Surgical History Surgery Procedure, Year, and Place: appendectomy Infectious Disease History: No Infectious Disease History: Denies: Traveled Outside the [place] in Last 30 Days - Family History Known Family History: Positive: Hypertension - Social History Occupation: Employed Full-time Lives: With Family Alcohol Use: None Hx Substance Use: No Substance Use Type: Reports: None Hx Tobacco Use: Yes Smoking Status (MU): Former Smoker Review of Systems Neurological: Negative All Other Systems Reviewed And Are Negative: Yes Physical Exam Triage Information Reviewed: Yes Vital Signs On Initial Exam: Initial Vitals Temp Pulse Resp BP Pulse Ox 97.8 F 83 16 150/96 94 01/16/18 08:29 01/16/18 08:29 01/16/18 08:29 01/16/18 08:29 01/16/18 08:29 Vital Signs Reviewed: Yes Appearance: Positive: Well-Appearing - Patient sitting in chair in no acute distress. present. Head/Face: Positive: Normal Head/Face Inspection Eyes: Positive: Normal Neck: Positive: Supple Neurological: Positive: Normal, CN Intact II-III Psychiatric: Positive: Affect/Mood Appropriate Diagnostics - Vital Signs Vital Signs Temp Pulse Resp BP Pulse Ox 01/16/18 09:19 98.4 F 88 15 137/96 95 01/16/18 08:29 97.8 F 83 16 150/96 94 - Laboratory Lab Statement: Any lab studies that have been ordered have been reviewed, and results considered in the medical decision making process. Dizzy Course/Dx - Course Course Of Treatment: Patient presenting for medication reaction to meclizine. 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 He has no complaints in the ER and is not dizzy. Recommend pt. try taking half a tablet. He actually was able to get an apt. this morning at his PCP office but decided to come to the ER instead. Work excuse given for today. Strongly advised pt. to see his PCP for close f.u. To return to ER if sxs change or worsen. Pt. understands and agrees wiht plan. - Diagnoses Differential Diagnosis/HQI/PQRI: Anxiety, Medication Reaction Provider Diagnoses: Medication side effect Discharge - Sign-Out/Discharge Documenting (check all that apply): Discharge/Admit/Transfer - Discharge Plan Condition: Good Disposition: HOME Forms: *Work Release Referrals: Edwige Davis MD [Primary Care Provider] - Additional Instructions: Call your PCP today to schedule an appointment Can try taking half a tablet of meclizine Return to ER if symptoms change or worsen - Billing Disposition and Condition Condition: GOOD Disposition: Home
== END 2018-01-16 09:18 | disposition home or self-care (01) ==
LOC: ED 08:21
DX: R40.0 Somnolence (principal); T45.0X5A Adverse effect of antiallergic and antiemetic drugs, initial encounter; Y92.9 Unspecified place or not applicable; E11.9 Type 2 diabetes mellitus without complications; E78.5 Hyperlipidemia, unspecified; I10 Essential (primary) hypertension; J44.9 Chronic obstructive pulmonary disease, unspecified; Z86.711 Personal history of pulmonary embolism; Z79.01 Long term (current) use of anticoagulants; Z88.0 Allergy status to penicillin; Z82.49 Family history of ischemic heart disease and other diseases of the circulatory system; Z87.891 Personal history of nicotine dependence
CPT/HCPCS: 99282

== ENCOUNTER 2018-02-25 18:44 | Emergency (ER) | payer MEDICAID ==
[2018-02-25] MEDS ORDERED: predniSONE TAB* 20 MG PO ONE (19:07)
[2018-02-25] MEDS ORDERED: Albuterol/Ipratropium NEB.SOL* Albuterol 2.5 MG/Ipratropium 0.5 MG 3 ML INH ONE (19:07)
--- NOTE | 2018-02-25 19:19 | ED ---
Shortness of Breath - HPI Summary HPI Summary: This is Syed coon documenting for attending physician Bobo Siegel MD. This patient is a 57 year old M presenting to [facility] accompanied by his with a chief complaint of SOB that began 3 hours. The patient rates the pain 0/ 10 in severity. Symptoms aggravated by movement. Patient reports wheezing. Patient denies cough, CP, fever, palpitations, and LE edema. Pt was just prescribed a CPAP but he has not begun using it. Pt states he is on 3 types of inhalers and is in the early stages of COPD. Hx DM and PE. Pt is currently on xarelto and has not missed any doses. - History of Current Complaint Chief Complaint: EDShortnessOfBreath Time Seen by Provider: 02/25/18 19:07 Hx Obtained From: Patient Onset/Duration: Lasting Hours - 3, Still Present Timing: Constant Current Severity: Mild Dyspnea At: Exertion Associated Signs & Symptoms: Negative - cough, CP, fever, palpitations, and LE edema. Pt - Allergy/Home Medications Allergies/Adverse Reactions: Allergies Allergy/AdvReac Type Severity Reaction Status Date / Time Penicillins Allergy Rash Verified 01/16/18 08:32 PMH/Surg Hx/FS Hx/Imm Hx Endocrine/Hematology History: Reports: Hx Anticoagulant Therapy, Hx Diabetes, Other Endocrine/Hematological Disorders - HLD Cardiovascular History: Reports: Hx Hypertension, Other Cardiovascular Problems/ Disorders - DIABETIC Respiratory History: Reports: Hx Asthma, Hx Chronic Obstructive Pulmonary Disease (COPD), Other Respiratory Problems/Disorders - HX PE 2016 Sensory History: Reports: Hx Contacts or Glasses Denies: Hx Hearing Aid Opthamlomology History: Reports: Hx Contacts or Glasses - Surgical History Surgery Procedure, Year, and Place: appendectomy Infectious Disease History: No Infectious Disease History: Denies: Traveled Outside the [place] in Last 30 Days - Family History Known Family History: Positive: Hypertension - Social History Lives: With Family Alcohol Use: None Hx Substance Use: No Substance Use Type: Reports: None Hx Tobacco Use: Yes Smoking Status (MU): Former Smoker Review of Systems Negative: Palpitations, Chest Pain Positive: Shortness Of Breath. Negative: Cough Negative: Edema All Other Systems Reviewed And Are Negative: Yes Physical Exam - Summary Physical Exam Summary: Appearance: Well appearing, no pain distress Skin: warm, dry, reflects adequate perfusion Head/face: normal Eyes: EOMI, MEHUL ENT: normal Neck: supple, non-tender, no JVD Respiratory: occasional mild wheeze in both bases. The left is greater is than the right. No rales, no rhonchi. Cardiovascular: RRR, pulses symmetrical Abdomen: non-tender, soft Bowel Sounds: present Musculoskeletal: normal, strength/ROM intact Neuro: normal, sensory motor intact, A&Ox3 Triage Information Reviewed: Yes Vital Signs On Initial Exam: Initial Vitals Temp Pulse Resp BP Pulse Ox 98.8 F 99 22 122/83 94 02/25/18 18:47 02/25/18 18:47 02/25/18 18:47 02/25/18 18:47 02/25/18 18:47 Vital Signs Reviewed: Yes Diagnostics - Vital Signs Vital Signs Temp Pulse Resp BP Pulse Ox 02/25/18 18:47 98.8 F 99 22 122/83 94 - Laboratory Lab Statement: Any lab studies that have been ordered have been reviewed, and results considered in the medical decision making process. - Radiology CXR Radiology Interpretation Completed By: Radiologist - PULMONARY VASCULAR CONGESTION. ED physician has reviewed this radiology report. Re-Evaluation - Re-Evaluation First Eval Re-Evaluation Time: 20:00 Change: Improved Comment: Pt is feeling better wheezing has improved. Course/Dx - Course Course Of Treatment: Patient with a history of COPD and also pulmonary embolism in the past. He presents with mild shortness of breath and wheezing in his bases. This resolved with breathing treatments. He was not tachycardic nor having chest pain. He states that this feels nothing like his PE and he is currently on Xarelto, having not missed any doses. He was given prednisone and breathing treatments here with resolution. O2 sats 97-98% on room air. No wheezing after treatments. Started Zithromax also. Follow closely primary care physician. - Diagnoses Differential Diagnosis/HQI/PQRI: Positive: Bronchitis, CHF, COPD Exacerbation, Pneumonia, Pulmonary Embolism Provider Diagnoses: COPD exacerbation Discharge - Sign-Out/Discharge Documenting (check all that apply): Patient Departure - Discharge Plan Condition: Improved Disposition: HOME Prescriptions: Azithromycin TAB* [Zithromax TAB (Z-YAMILKA) 250 mg #6 tabs] 2 tab PO .TODAY, THEN 1 DAILY #1 yamilka predniSONE TAB* [Deltasone TAB*] 50 mg PO DAILY #3 tab Patient Education Materials: COPD (Chronic Obstructive Pulmonary Disease) (ED) Referrals: Laurie Dc MD [Medical Doctor] - Edwige Davis MD [Primary Care Provider] - Additional Instructions: Return with fever, increased difficulty breathing, worse, new symptoms or other concerns. Use albuterol inhaler every 4 hours until well. Prednisone may make your blood sugars high. Avoid smoke and smokers - Billing Disposition and Condition Condition: IMPROVED Disposition: Home Attestation Statement Scribe Attestation: This is Syed coon documenting for attending physician Bobo Siegel MD. User Type: Provider with [employer] Provider Attestation: The documentation recorded by the scribe accurately reflects the service I personally performed and the decisions made by me.
--- OUTSIDE RECORDS SUMMARY | 2018-02-25 19:26 | XMS REPORT ---
:1960 External Reference #:[id number] Author Organization [facility] Address [address] [place] [address] [place] [address] Phone [phone] Care Team Providers Name Role Phone Edwige Davis MD Care Team Information [employer] Unavailable Edwige Davis MD Primary Care Physician Unavailable Payers Type Date Identification Numbers Payment Provider Subscriber Commercial Expires: 2016 Policy Number: [id number] Bernabe Fink PayID: [id number] [address] [place] [address] [facility] Policy Number: [id number] Medicaid [employer] Name: 1 1 [address] PayID: [id number] [place] [address] Problems Date Description Provider Status Onset: 11/27/2017 Pulmonary embolism Laurie Dc MD Active Onset: 12/19/2017 Chronic obstructive pulmonary disease w Elin Freitas N.P. Active (acute) exacerbation Onset: 12/19/2017 Essential hypertension Elin Freitas N.P. Active Onset: 12/19/2017 Type 2 diabetes mellitus Elin Freitas N.P. Active Onset: 12/20/2017 H/O: pulmonary embolus Andreia Johnson D.O. 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 Cigarette Use Former Cigarette Smoker Smoked since he was 18, 2 ppd ETOH Use Denies alcohol use Smoking Patient is a former smoker Recreational Drug Use Denies Drug Use Daily Caffeine Consumes on average 3 cups of regular coffee per day Exercise Type/Frequency Exercises regularly Allergies, Adverse Reactions, Alerts Date Description Reaction Status Severity Comments 11/27/2017 Penicillin active Medications Medication Date Status Form Strength Qnty SIG Indications Ordering Provider Spiriva Active Aerosol 2.5mcg/Act 2 puffs Ryan, Respimat 000 bid MD Edwige Flovent HFA Active Aerosol 110mcg/Act prn Galyanova, 000 MD Edwige Xarelto Active Tablets 20mg qhs Woglom, 000 MD Connor Ventolin HFA Active Aerosol 108(90Base) prn Woglom, 000 mcg/Act MD Connor Albuterol Active Nebulizer (2.5mg/3ML) prn Legendre, Sulfate 000 0.083% Delicia Ayon, PHD, [facility] Glipizide Active Tablets 5mg 1 tab qd Unknown 000 Metoprolol Active Tablets 25mg 1 by Unknown Tartrate 000 mouth twice a day Atorvastatin Active Tablets 40mg 1 qhs Unknown Calcium 000 Benzonatate Hx Capsules 200mg prn Unknown 000 - 018 Vital Signs Date Vital Result Comment 02/15/2018 Height 72 inches 6'0" Weight 295.25 lb Heart Rate 84 /min BP Systolic Sitting 134 mmHg Rue large cuff BP Diastolic Sitting 92 mmHg Rue large cuff Respiratory Rate 16 /min O2 % BldC Oximetry 97 % On Ra BMI (Body Mass Index) 40.0 kg/m2 11/27/2017 Height 72 inches 6'0" Weight 300.00 lb Heart Rate 72 /min BP Systolic Sitting 138 mmHg BP Diastolic Sitting 86 mmHg Respiratory Rate 14 /min O2 % BldC Oximetry 96 % BMI (Body Mass Index) 40.7 kg/m2 Neck Circumference in inches 18.5 Results Description No Information Procedures Date CPT Code Description Status 11/21/2017 98534 Spirometry Incl Graphic Record Completed Encounters Type Date Location Provider CPT E/M Dx Office Visit 12/20/2017 [facility], Andreia Johnson, [address] J44.1 9:20a Hospitalists D.O. I10 E11.9 Z86.711 Office Visit 12/19/2017 9:19a [facility], Elin Freitas N.P. 26261 J44.1 Hospitalists I10 E11.9 Z86.711 Office Visit 11/27/2017 7:00a [facility] [address] R06.02 [facility] J43.9 R06.83 E66.01 Z87.891 Z68.41 Plan of Care Future Appointment(s):04/13/2018 10:30 am - Laurie Dc MD at [facility]02/15/2018 - Laurie Dc MDG47.33 Obstructive sleep apnea (adult) (pediatric)Follow up:6 [id number] Chronic obstructive pulmonary disease, [id number] Morbid (severe) obesity due to excess calories
--- NOTE | 2018-02-25 19:52 | RAD ---
HISTORY: SOB COMPARISONS: January 15, 2018 VIEWS: 6: Frontal dual-energy and lateral views of the chest. FINDINGS: CARDIOMEDIASTINAL SILHOUETTE: The cardiomediastinal silhouette is normal. LUIS: The luis are normal. PLEURA: The costophrenic angles are sharp. No pleural abnormalities are noted. LUNG PARENCHYMA: There is calcified granuloma of the left lung. There is prominence of the central pulmonary vasculature. ABDOMEN: The upper abdomen is clear. There is no subphrenic gas. BONES AND SOFT TISSUES: No bone or soft tissue abnormalities are noted. OTHER: None. IMPRESSION: PULMONARY VASCULAR CONGESTION.
[2018-02-25 20:16] VITALS: BP 126/74
== END 2018-02-25 20:15 | disposition home or self-care (01) ==
LOC: ED 18:44
DX: J44.1 Chronic obstructive pulmonary disease with (acute) exacerbation (principal); Z79.01 Long term (current) use of anticoagulants; Z88.0 Allergy status to penicillin; Z87.891 Personal history of nicotine dependence
CPT/HCPCS: 71046; 99282; A9270-GY; J7512

== ENCOUNTER 2018-04-06 10:56 | Emergency (ER) | payer MEDICAID ==
--- NOTE | 2018-04-06 11:15 | ED ---
GI/ HPI - HPI Summary HPI Summary: The pt is a 58 y/o male presenting to [facility] c/o bilateral scrotal pain since 2 days ago. He denies any heavy lifting or recent trauma. The pain is rated 1/10 in severity and is aggravated by standing. He notes inguinal pain but denies blood in urine, kidney stones, constipation, nausea, diarrhea, and vomiting. The patient usually wears boxers and was advised at bedside to use briefs for additional scrotal support. 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 - Onset/Duration: Started Days Ago - 2 days ago, Still Present Severity: Mild Pain Intensity: 1 Location of Pain: Diffuse, Groin Pain Characteristics: Aching Associated Signs and Symptoms: Negative: Nausea, Vomiting, Constipation, Diarrhea - Additional Pertinent History Primary Care Physician: DARÍO - Allergy/Home Medications Allergies/Adverse Reactions: Allergies Allergy/AdvReac Type Severity Reaction Status Date / Time Penicillins Allergy Rash Verified 04/06/18 11:07 PMH/Surg Hx/FS Hx/Imm Hx Previously Healthy: No Endocrine/Hematology History: Reports: Hx Anticoagulant Therapy, Hx Diabetes, Other Endocrine/Hematological Disorders - HLD Cardiovascular History: Reports: Hx Hypertension, Other Cardiovascular Problems/ Disorders - DIABETIC Respiratory History: Reports: Hx Asthma, Hx Chronic Obstructive Pulmonary Disease (COPD), Other Respiratory Problems/Disorders - HX PE 2016 Sensory History: Reports: Hx Contacts or Glasses Denies: Hx Hearing Aid Opthamlomology History: Reports: Hx Contacts or Glasses - Cancer History Cancer Type, Location and Year: None reported - Surgical History Surgery Procedure, Year, and Place: appendectomy Infectious Disease History: No Infectious Disease History: Denies: Traveled Outside the [place] in Last 30 Days - Family History Known Family History: Positive: Hypertension - Social History Occupation: Unemployed Lives: With Family Alcohol Use: None Hx Substance Use: No Substance Use Type: Reports: None Hx Tobacco Use: Yes Smoking Status (MU): Former Smoker Review of Systems Gastrointestinal: Negative - Constipation, blood in urine Negative: Vomiting, Diarrhea, Nausea Genitourinary: Other - Positive: bilateral scrotal pain, inguinal pain All Other Systems Reviewed And Are Negative: Yes Physical Exam - Summary Physical Exam Summary: Appearance: Well appearing, no pain distress Skin: warm, dry, reflects adequate perfusion Head/face: normal Eyes: EOMI, MEHUL ENT: normal Neck: supple, non-tender Respiratory: CTA, breath sounds present Cardiovascular: RRR, pulses symmetrical Abdomen: Tenderness in the LLQ, soft Genitourinary: Swelling and tenderness in the scrotum Bowel: present Musculoskeletal: normal, strength/ROM intact Neuro: normal, sensory motor intact, A&Ox3 Triage Information Reviewed: Yes Vital Signs On Initial Exam: Initial Vitals Temp Pulse Resp BP Pulse Ox 97.4 F 70 17 127/83 96 04/06/18 11:03 04/06/18 11:03 04/06/18 11:03 04/06/18 11:03 04/06/18 11:03 Vital Signs Reviewed: Yes Diagnostics - Vital Signs Vital Signs Temp Pulse Resp BP Pulse Ox 04/06/18 11:03 97.4 F 70 17 127/83 96 - Laboratory Result Diagrams: 04/06/18 11:22 04/06/18 11:22 Lab Statement: Any lab studies that have been ordered have been reviewed, and results considered in the medical decision making process. - Radiology Testicular US Radiology Interpretation Completed By: Radiologist - IMPRESSION: #. No evidence for testicular torsion, presence of an intratesticular lesion, or epididymoorchitis. #. 1.0 cm maximum dimension probable exophytic epididymal head cyst or spermatocele at the LEFT epididymal head without concern. #. RIGHT larger than LEFT bilateral varicoceles with veins of the pampiniform plexus measuring up to 4.5 mm on Valsalva maneuver. ED physician reviewed this radiology report. Abd /Pel CT Radiology Interpretation Completed By: Radiologist - IMPRESSION: No evidence of obstructive uropathy is noted. The urinary bladder and prostate are unremarkable. No hernias are noted. Hepatic steatosis. ED physician reviewed this radiology report. GIGU Course/Dx - Course Assessment/Plan: A 58 year-old M/F presents to the ED with a CC of bilateral scrotal pain since 2 days ago. He denies any heavy lifting or recent trauma. The pain is rated 1/10 in severity and is aggravated by standing. He notes inguinal pain but denies blood in urine, kidney stones, constipation, nausea, diarrhea, and vomiting. A physical exam revealed tenderness in the LLQ and swelling and tenderness in the scrotum. A testicular US reveals a larger R than L bilateral varicoceles with veins of the pampiniform plexus. measuring up to 4.5 mm on Valsalva maneuver. An abd/Pel Ct reveals hepatic steatosis but no evidence of obstructive uropathy. The patient will be discharged with a final Dx of abd pain and scrotal pain. The pt is agreeable with this plan. Allergies noted.to follow up with urology. - Diagnoses Differential Diagnoses - Male: Diverticulitis, Epididymitis, Renal Colic, Testicular Torsion, Ureteral Calculi, Urinary Tract Infection Provider Diagnoses: Abdominal pain, Scrotal pain Discharge - Sign-Out/Discharge Documenting (check all that apply): Patient Departure - Discharge - Discharge Plan Condition: Improved Disposition: HOME Patient Education Materials: Abdominal Pain (ED), Scrotal Pain (ED) Forms: *Work Release Referrals: Edwige Davis MD [Primary Care Provider] - 2 Days Greyson Joseph MD [Medical Doctor] - 3 Days (See Dr. Joseph- urologist on Monday04/09/2018 in his offfice. ) Additional Instructions: Return to ED for any new or worsening symptoms - Billing Disposition and Condition Condition: IMPROVED Disposition: Home - Attestation Statements Document Initiated by Scribe: Yes Documenting Scribe: Chantell Art Provider For Whom Tito is Documenting (Include Credential): Dr. Georgi Damon MD Scribe Attestation: Chantell Gil , scribed for Dr. Georgi Damon MD on 04/06/18 at 1405. Scribe Documentation Reviewed: Yes Provider Attestation: The documentation as recorded by the Chantell coon accurately reflects the service I personally performed and the decisions made by me, Dr. Georgi Damon MD
[2018-04-06 11:30] LABS: ABS Basophils 0.1 10^3/ul (0-0.2); ABS Eosinophils 0.2 10^3/ul (0-0.6); ABS Lymphocytes 2.6 10^3/ul (1.0-4.8); ABS Monocytes 0.6 10^3/ul (0-0.8); ABS Neutrophils 5.6 10^3/ul (1.5-7.7); ABS Nucleated RBC 0 10^3/ul; Eosinophil % 2.5 % (0-6); Hematocrit 44 % (42-52); Hemoglobin 15.4 g/dl (14.0-18.0); Lymphocyte % 28.6 % (25-47); Mean Corpuscular HGB Conc 35 g/dl (31-36); Mean Corpuscular Hemoglobin 30 pg (27-31); Mean Corpuscular Volume 86 fL (80-94); Mean Platelet Volume 8.8 um3 (7.4-10.4); Nucleated Red Blood Cells % 0; Platelet Count 199 10^3/ul (150-450); Red Blood Count 5.04 10^6/ul (4.00-5.40); Red Cell Distribution Width 14 % (10.5-15); White Blood Count 9.2 10^3/ul (3.5-10.8)
[2018-04-06 11:43] LABS: INR 1.26 (0.77-1.02)
[2018-04-06 11:51] LABS: EGFR Non-African American 77.6 (>60)
--- NOTE | 2018-04-06 12:17 | RAD ---
Indication: Bilateral scrotal pain for 2 days. Comparison: No relevant prior exams available on the [facility] PACS for comparison. Technique: Testicular ultrasound. Report: 4.9 x 2.1 x 3.5 cm RIGHT testicle. 4.0 x 1.8 x 3.3 cm LEFT testicle. Normal bilateral testicular echotexture and symmetric vascularity on Doppler. No intratesticular lesions evident. 0.7 x 1.1 cm unremarkable RIGHT epididymal head. 0.7 x 0.9 cm LEFT epididymal head with probable exophytic 0.9 x 0.9 x 1.0 cm epididymal head cyst or spermatocele. Negative for hydroceles. RIGHT larger than LEFT bilateral varicoceles with veins of the pampiniform plexus measuring up to 4.5 mm on Valsalva maneuver. IMPRESSION: #. No evidence for testicular torsion, presence of an intratesticular lesion, or epididymoorchitis. #. 1.0 cm maximum dimension probable exophytic epididymal head cyst or spermatocele at the LEFT epididymal head without concern. #. RIGHT larger than LEFT bilateral varicoceles with veins of the pampiniform plexus measuring up to 4.5 mm on Valsalva maneuver.
--- NOTE | 2018-04-06 13:00 | RAD ---
Indication: Left flank pain. CT of the abdomen and pelvis was performed without oral or IV contrast administration. Coronal and sagittal reconstructed images were obtained. Lung bases demonstrate no pleural fluid, nodules or masses. Heart is of normal size without evidence of pericardial effusion. The liver is normal in size. It is diffusely decreased in density consistent with hepatic steatosis. The gallbladder is partially contracted. Common duct is not dilated. The pancreas demonstrates no mass or pancreatic duct dilatation. The spleen demonstrates calcified granulomas. No adrenal masses are noted. The kidneys demonstrate no hydronephrosis with cortical cysts in the right kidney measuring up to 3.4 cm. No retroperitoneal lymphadenopathy is noted. CT of the pelvis demonstrates prostate and seminal vesicles to be unremarkable. No hernias are noted. The urinary bladder is unremarkable. No dilated loops of bowel are noted. IMPRESSION: No evidence of obstructive uropathy is noted. The urinary bladder and prostate are unremarkable. No hernias are noted. Hepatic steatosis.
[2018-04-06 13:28] LABS: Urine Appearance Clear; Urine Blood Negative (Negative); Urine Color Yellow; Urine Ketones Negative (Negative); Urine Protein Negative (Negative); Urine Specific Gravity 1.018 (1.010-1.030); Urine Urobilinogen Negative (Negative)
[2018-04-06 15:15] VITALS: BP 140/74
== END 2018-04-06 15:15 | disposition home or self-care (01) ==
LOC: ED 10:56
DX: R10.9 Unspecified abdominal pain (principal); N50.82 Scrotal pain; E78.5 Hyperlipidemia, unspecified; Z87.891 Personal history of nicotine dependence; Z79.01 Long term (current) use of anticoagulants; I10 Essential (primary) hypertension
CPT/HCPCS: 36415; 74176; 76870; 80053; 81003; 83690; 84484; 85025; 85610; 85730; 99282

== ENCOUNTER 2018-04-23 12:10 | Emergency (ER) | payer MEDICAID ==
--- OUTSIDE RECORDS SUMMARY | 2018-04-23 12:15 | XMS REPORT ---
:1960 External Reference #:[id number] Author Organization [facility] Address [address] [place] [address] [place] [address] Phone [phone] Care Team Providers Name Role Phone Milly Kapoor RPA-C Primary Care Physician Unavailable Payers Type Date Identification Numbers Payment Provider Subscriber Commercial Expires: 2016 Policy Number: [id number] Bernabe Fink PayID: [id number] [address] [place] [address] Medigap Part B Policy Number: [id number] Medicaid Ramírez [employer] Name: 1 1 [address] PayID: [id number] [place] [address] Problems Date Description Provider Status Onset: 11/27/2017 [...] Sister, smoker, has a stent and had [place] Social History Type Date Description Comments Marital Status 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 Cigarette Use Former [...] Provider Spiriva Active Aerosol 2.5mcg/Act 2 puffs Giancarloyanjosefina, Respimat 000 bid MD Edwige Flovent HFA Active Aerosol 110mcg/Act prn Galyanova, 000 MD Edwige Xarelto Active Tablets 20mg qhs Woglom, 000 MD Connor Ventolin HFA Active Aerosol 108(90Base) prn Woglom, 000 mcg/Act MD Connor Albuterol Active Nebulizer (2.5mg/3ML) prn Legendre, Sulfate 000 0.083% Delicia Ayon, PHD, [facility] Glipizide Active Tablets 5mg 1 tab qd Unknown 000 Metoprolol Active Tablets 25mg 1 by Unknown Tartrate 000 mouth twice a day Atorvastatin Active Tablets 40mg 1 qhs Unknown Calcium 000 Benzonatate Hx Capsules 200mg prn Unknown 000 - 018 Vital Signs Date Vital Result Comment 04/13/2018 Height 72 inches 6'0" Weight 292.00 lb Heart Rate 88 /min BP Systolic Sitting 122 mmHg BP Diastolic Sitting 72 mmHg Respiratory Rate 14 /min O2 % BldC Oximetry 95 % BMI (Body Mass Index) 39.6 kg/m2 02/15/2018 Height 72 inches 6'0" Weight 295.25 [...] Information Procedures Date CPT Code Description Status 02/01/2018 41385 Polysomnography Sleep Staging 4+ Parameters Completed 11/21/2017 82339 Spirometry Incl Graphic Record Completed Encounters Type Date Location Provider CPT E/M Dx Office Visit 02/15/2018 [place] [address] G47.33 3:00p [facility] J44.9 E66.01 Office Visit 12/20/2017 9:20a [facility], Andreia Johnson 48998 J44.1 Hospitalists DTammyOTammy I10 E11.9 Z86.711 Office Visit 12/19/2017 9:19a [facility], Elin Freitas N.PTammy 75660 J44.1 Hospitalists I10 E11.9 Z86.711 Office Visit 11/27/2017 7:00a [facility] [address] R06.02 [facility] J43.9 R06.83 E66.01 Z87.891 Z68.41 Plan of Care Future Appointment(s):04/15/2019 3:30 pm - Laurie Dc MD at [facility]04/13/2018 - Laurie Dc MDG47.33 Obstructive sleep apnea (adult) (pediatric)Follow up:1 yearJ44.9 Chronic obstructive pulmonary disease, pslyciobiipA73.01 Morbid (severe) obesity due to excess calories
[2018-04-23 14:30] VITALS: BP 126/87
--- NOTE | 2018-04-23 14:31 | UC ---
Complaint Male HPI - HPI Summary HPI Summary: 58-year-old male coming in with a chief complaint of testicular pain. This pain started more than 2 weeks ago. He also had swelling of the testicles. No known trauma. He was seen in the emergency department on April 06, 2018. On that day he had a testicular ultrasound which did show varicoceles and a cyst on the left side but no acute disease process. Urinalysis was normal on that day. He was recommended that he have better scrotal support and he's been doing that witH new underwear. The pain and swelling is decreased. The pain was at its worse is about a 6 out of 10. Now it most the time there is no pain occasionally can feel a 1 out of 10 discomfort. Does not have pain with urination. He has seen his primary care doctor who is getting him set up to follow up with urology. - History of Current Complaint Chief Complaint: UCGU Stated Complaint: SWOLLEN TESTICLES Time Seen by Provider: 04/23/18 13:40 Pain Intensity: 1 - Allergies/Home Medications Allergies/Adverse Reactions: Allergies Allergy/AdvReac Type Severity Reaction Status Date / Time Penicillins Allergy Rash Verified 04/23/18 12:31 Home Medications: Home Medications Fluticasone HFA 110 mcg(NF) [Flovent HFA 110 mcg(NF)] 1 puff INH BID 04/23/18 [ History Confirmed 04/23/18] PMH/Surg Hx/FS Hx/Imm Hx Endocrine History: Diabetes Cardiovascular History: Hypertension Other History Of: Anticoagulant Therapy - Surgical History Surgical History: Yes Surgery Procedure, Year, and Place: appendectomy - Family History Known Family History: Positive: Hypertension - Social History Alcohol Use: None Substance Use Type: None Smoking Status (MU): Former Smoker Review of Systems Constitutional: Negative Skin: Negative Eyes: Negative ENT: Negative Respiratory: Negative Cardiovascular: Negative Gastrointestinal: Negative Genitourinary: Other - SEE HPI Motor: Negative Neurovascular: Negative Musculoskeletal: Negative Neurological: Negative Psychological: Negative Is Patient Immunocompromised?: No All Other Systems Reviewed And Are Negative: Yes Physical Exam Triage Information Reviewed: Yes Appearance: Well-Appearing, No Pain Distress, Well-Nourished Vital Signs: Initial Vital Signs Temp 96.5 F 04/23/18 12:24 Pulse 86 04/23/18 12:24 Resp 18 04/23/18 12:24 BP 120/81 04/23/18 12:24 Pulse Ox 98 04/23/18 12:24 Vital Signs Reviewed: Yes Eye Exam: Normal Eyes: Positive: Conjunctiva Clear Neck exam: Normal Neck: Positive: Supple Respiratory: Positive: No respiratory distress Male Genital Exam: Positive: Other - There is no tenderness to palpation in the inguinal areas. No swelling in the inguinal areas. There is no lesions on the penis. There is no discharge from the urethra. Testicles are smooth and nontender to palpation with out any masses palpated in the testicles. The scrotum itself has no erythema or skin breakdown. Musculoskeletal Exam: Normal Musculoskeletal: Positive: Strength Intact, ROM Intact Neurological Exam: Normal Neurological: Positive: Alert, Muscle Tone Normal Psychological Exam: Normal Psychological: Positive: Normal Response To Family, Age Appropriate Behavior Skin Exam: Normal Complaint Male Course/Dx - Course Course Of Treatment: Patient is improved greatly with the added support. He is requesting low back to work I will write a note from to go back to work full duty starting April 24, 2018. Because of this episode because of the varicoceles I recommended that he maintain his follow-up with urology. Recheck sooner if worse. - Differential Dx/Diagnosis Provider Diagnoses: TESTICULAR PAIN Discharge - Sign-Out/Discharge Documenting (check all that apply): Patient Departure All imaging exams completed and their final reports reviewed: No Studies - Discharge Plan Condition: Stable Disposition: HOME Patient Education Materials: Testicle Pain (ED), Scrotal Pain (ED) Referrals: Andrew Mayo MD [Medical Doctor] - Greyson Joseph MD [Medical Doctor] - Additional Instructions: FOLLOW UP WITH UROLOGY. GET RECHECKED SOONER FOR ANY WORSENING OF YOUR CONDITION OR QUESTIONS OR CONCERNS. - Billing Disposition and Condition Condition: STABLE Disposition: Home
== END 2018-04-23 14:49 | disposition home or self-care (01) ==
LOC: UCEAST 12:10
DX: N50.819 Testicular pain, unspecified (principal); Z88.0 Allergy status to penicillin; Z87.891 Personal history of nicotine dependence
CPT/HCPCS: 99211; G0463

== ENCOUNTER 2018-05-26 11:58 | Emergency (ER) | payer MEDICAID ==
--- OUTSIDE RECORDS SUMMARY | 2018-05-26 12:04 | XMS REPORT ---
:1960 External Reference #:[id number] Author Organization [facility] Address [address] [place] [address] Phone [phone] Care Team Providers Name Role Phone Ronald Gavin M.D. 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 Active prostate Onset: 05/04/2018 Pain in scrotum Ronald Gavin M.D. Active Social History Type Date Description Comments Smoking Patient is a former smoker Smoking quit 3yrs ago Allergies, Adverse Reactions, Alerts Description No Information Medications Medication Date Status Form Strength Qnty SIG Indications Ordering Provider Xarelto Active Tablets 20mg 1 po qd Unknown Vital Signs Date Vital Result Comment 05/04/2018 BP Systolic 146 mmHg BP Diastolic 98 mmHg Body Temperature 97.9 F Heart Rate 72 /min Respiratory Rate 16 /min Height 72 inches 6'0" Weight 293.50 lb BMI (Body Mass Index) 39.8 kg/m2 BSA (Body Surface Area) 2.51 m2 [place] body weight in kilograms 81 O2 % BldC Oximetry 97 % Pain Level 1 scrotal region Results Description No Information Procedures Date CPT Code Description Status 05/04/2018 43863 Measurement Post Voiding Residual Urine By Completed Ultrasound,Non-Imaging 05/04/2018 08336 complex uroflowmetry electronic Completed Encounters Type Date Location Provider CPT E/M Dx Office Visit 05/04/2018 11:00a Urology Ronald Gavin M.D. 83616 N50.82 Z12.5 Plan of Care Future Appointment(s):06/05/2018 4:00 pm - Ronald Gavin M.D. at [id number] - Ronald Gavin M.D.N50.82 Scrotal painNew Labs:Ua RFX Micro & Culture IIComments:Patient could be having pain from the varicocele seen on ultrasound although these are not appreciable clinically.I encouraged the patient to take Tylenol as needed for pain. Also encouraged him to wear scrotal support.Patient to follow up with me in 3-4 weeks. We'll check his urine today to ensure he does not have a UTI.Z12.5 Encounter for screening for malignant neoplasm of prostateNew Labs:Prostate Specific AntigenComments: Patient has not had prostate cancer screening and he is agreeable to start it. We'll check a PSA today.
--- OUTSIDE RECORDS SUMMARY | 2018-05-26 12:04 | XMS REPORT ---
:1960 External Reference #:[id number] Author Organization [facility] Address [address] [place] [address] Phone [phone] Care Team Providers Name Role Phone Ronald Gavin M.D. Care Team Information Manager Competitive Intelligence Unavailable Payers Type Date Identification Numbers Payment Provider Subscriber Medicaid Policy Number: [id number] Medicaid Ramírez Fink PayID: [id number] [address] [place] [address] Problems Date Description Provider Status Onset: 05/04/2018 Screening for malignant neoplasm of Ronald Gavin M.D. Active prostate Onset: 05/04/2018 Pain in scrotum Ronald Gavin M.D. 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 times a day as needed for pain Xarelto 0 Active Tablets 20mg 1 po qd Unknown 000 Glipizide Active Tablets 5mg 1 po qd Unknown 000 Metoprolol Active no dose Unknown 000 given Atorvastatin Active Tablets 20mg 1 po qd Unknown Calcium 000 Spiriva Active Capsules 18mcg 1 w Unknown Handihaler 000 inhaler qd Ventolin HFA Active Aerosol 108(90Base 2 puffs Unknown 000 ) mcg/Act q4h prn Fluticasone HFA Active 110mcg 1 puff Unknown 000 twice daily Vital Signs Date Vital Result Comment 05/16/2018 BP Systolic 137 mmHg BP Diastolic 81 mmHg Heart Rate 83 /min Respiratory Rate 18 /min Height 72 inches 6'0" Weight 299.25 lb BMI (Body Mass Index) 40.6 kg/m2 BSA (Body Surface Area) 2.53 m2 [place] body weight in kilograms 81 O2 % BldC Oximetry 97 % Pain Level 7 Left testicle 05/04/2018 BP Systolic 146 mmHg BP Diastolic 98 mmHg Body Temperature 97.9 F Heart Rate 72 /min Respiratory Rate 16 /min Height 72 inches 6'0" Weight 293.50 lb BMI (Body Mass Index) 39.8 kg/m2 BSA (Body Surface Area) 2.51 m2 [place] body weight in kilograms 81 O2 % BldC Oximetry 97 % Pain Level 1 scrotal region Results Test Date Test Result H/L Range Note Urine Dipstick 05/04/2018 Ua Color yellow Yellow Ua Clarity clear Clear Ua Leuko neg Negative Ua Nitrite neg Negative Ua Urobilinogen 3.5 High 0.2 - 1.0 E.U./dL Ua Protein neg Negative Ua PH 5.5 Low 6.5-7.5 Ua Blood neg Negative Ua Specific [place] 1.030. 1.010-1.030 Ua Ketones neg Negative Ua Bilirubin neg Negative Ua Glucose neg Negative Laboratory test finding 05/04/2018 Prostate Specific 1.03 ng/mL < 4.0 1 , 2 Antigen Ua RFX Micro & Culture II 05/04/2018 Urine Color YELLOW Yellow 3 Urine Clarity TURBID Clear 3 Urine Glucose - Dipstick NEGATIVE mg/dL Negative 3 Urine Bilirubin - Dipstick NEGATIVE Negative 3 Urine Ketone NEGATIVE mg/dL Negative 3 Urine Specific [place] 1.025 1.010-1.030 3 Urine Blood NEGATIVE Negative 3 Urine PH 5.5 Low 6.5-7.5 3 Urine Protein - Dipstick NEGATIVE mg/dL Negative 3 Urine Urobilinogen - Dipstick 0.2 E.U./dL 0.2-1.0 3 Urine Nitrite - Dipstick NEGATIVE Negative 3 Urine Leuk Esterase NEGATIVE Negative 3 Source: URINE, CLEAN CAT <SEE NOTE> 3, 4 1 Z12.5 2 THIS ASSAY IS NOT INTENDED A CANCER SCREENING TEST The concentration of PSA in a given specimen, determined with assays from different manufacturers, can vary due to differences in assay methods and reagent specificity. Values obtained from different assay methods cannot be used interchangeably. Method: [employer] [place] Chemiluminescent immunoassay. 3 N50.82 4 URINE, CLEAN CATCH Procedures Date CPT Code Description Status 05/04/2018 49194 Measurement Post Voiding Residual Urine By Completed Ultrasound,Non-Imaging 05/04/2018 11890 complex uroflowmetry electronic Completed Encounters Type Date Location Provider CPT E/M Dx Office Visit 05/16/2018 12:30p Urology Ronald Gavin M.D. 18470 N50.82 Office Visit 05/04/2018 11:00a Urology Ronald Gavin M.D. 94533 N50.82 Z12.5 Plan of Care Future Appointment(s):06/05/2018 4:00 pm - Ronald Gavin M.D. at [id number]/2018 - Ronald Gavin M.D.N50.82 Scrotal painNew Medication:Gabapentin 300 mgComments:Will do a trial of Gabapentin, will refer to pain clinic if no improvement will consider left varicocelectomy and spermatocelectomy. Pt to follow up after pain clinic,Referral:Farhad Wilks MD,
[2018-05-26 12:35] VITALS: BP 138/96
--- NOTE | 2018-05-26 14:10 | UC ---
General HPI - HPI Summary HPI Summary: patient ate a piece of cake with his coffee today then checked his blood sugar-- -he noted his sugar to be elevated took and extra glipizide and came in to be checked - History of Current Complaint Chief Complaint: UCGeneralIllness Stated Complaint: ELEVATED BLOOD SUGAR Time Seen by Provider: 05/26/18 13:46 Hx Obtained From: Patient Hx From Patient Unobtainable Due To: Other Onset/Duration: Sudden Onset Timing: Constant Pain Intensity: 0 - Allergy/Home Medications Allergies/Adverse Reactions: Allergies Allergy/AdvReac Type Severity Reaction Status Date / Time Penicillins Allergy Rash Verified 05/26/18 12:35 PMH/Surg Hx/FS Hx/Imm Hx Previously Healthy: No Endocrine History: Diabetes Cardiovascular History: Hypertension Respiratory History: Asthma Other History Of: Anticoagulant Therapy - Surgical History Surgical History: Yes Surgery Procedure, Year, and Place: appendectomy - Family History Known Family History: Positive: Hypertension - Social History Occupation: Employed Full-time Lives: With Family Alcohol Use: None Substance Use Type: None Smoking Status (MU): Former Smoker When Did the Patient Quit Smoking/Using Tobacco: 2014 Review of Systems All Other Systems Reviewed And Are Negative: Yes Constitutional: Positive: Negative Skin: Positive: Negative Eyes: Positive: Negative ENT: Positive: Negative Respiratory: Positive: Negative Cardiovascular: Positive: Negative Gastrointestinal: Positive: Negative Genitourinary: Positive: Negative Motor: Positive: Negative Neurovascular: Positive: Negative Musculoskeletal: Positive: Negative Neurological: Positive: Negative Psychological: Positive: Negative Is Patient Immunocompromised?: No Physical Exam Triage Information Reviewed: Yes Appearance: Well-Appearing, No Pain Distress, Obese Vital Signs: Initial Vital Signs Temp 97.2 F 05/26/18 12:30 Pulse 77 05/26/18 12:30 Resp 18 05/26/18 12:30 BP 138/96 05/26/18 12:30 Pulse Ox 97 05/26/18 12:30 Vital Signs Reviewed: Yes Eye Exam: Normal Eyes: Positive: Conjunctiva Clear ENT Exam: Normal ENT: Positive: Normal ENT inspection, Hearing grossly normal. Negative: Trismus , Muffled voice, Hoarse voice Neck exam: Normal Neck: Positive: Supple, Nontender, No Lymphadenopathy Respiratory Exam: Normal Respiratory: Positive: Chest non-tender, No respiratory distress, No accessory muscle use Cardiovascular Exam: Normal Cardiovascular: Positive: RRR, Pulses Normal, Brisk Capillary Refill Musculoskeletal Exam: Normal Musculoskeletal: Positive: Strength Intact, ROM Intact, No Edema Neurological Exam: Normal Neurological: Positive: Alert, Muscle Tone Normal Psychological Exam: Normal Skin Exam: Normal Diagnostics - Laboratory Diagnostic Studies Completed/Ordered: glucose down to 262 +3 glucose in urines and no ketones Course/Dx - Course Course Of Treatment: reviewed low carb diet with patient and s/s of elevated blood sugar that are concerning plan to follow with pcp - Differential Dx - Multi-Symptom Provider Diagnoses: hyperglycemia Discharge - Sign-Out/Discharge Documenting (check all that apply): Patient Departure All imaging exams completed and their final reports reviewed: No Studies - Discharge Plan Condition: Stable Disposition: HOME Patient Education Materials: Diabetic Hyperglycemia (ED), Mediterranean Diet ( DC), Diabetes and Exercise (ED) Referrals: Antwon MCDONALD,Milly Cisse [Primary Care Provider] - 2 Weeks - Billing Disposition and Condition Condition: STABLE Disposition: Home
== END 2018-05-26 14:28 | disposition home or self-care (01) ==
LOC: UCEAST 11:58
DX: E11.65 Type 2 diabetes mellitus with hyperglycemia (principal); I10 Essential (primary) hypertension; Z79.01 Long term (current) use of anticoagulants; Z87.891 Personal history of nicotine dependence
CPT/HCPCS: 81003; 99211; G0463

== ENCOUNTER → 2018-06-09 10:45 | Emergency (ER) | payer MEDICAID ==
[~2018-06-09 10:45] MED LIST: HYDROcodone/ACETAMIN 5-325 MG* 1 TAB PO ONE
--- NOTE | 2018-06-09 11:04 | ED ---
GI/ HPI - HPI Summary HPI Summary: Patient is a 58 y/o M w/ c/o left testicular pain for the past month. He believes that this pain is related to his varicose veins. Patient reports standing aggravates pain, sitting/lying down alleviates pain. He denies fevers, chills, dysuria, and penile discharge. Patient reports sexual activity only with his who is present in the room. On triage, pain is rated 6/10. Home medications and allergies are reviewed. - History of Current Complaint Chief Complaint: EDUrogenitalProblems Time Seen by Provider: 06/09/18 10:56 Stated Complaint: TESTICULAR PAIN Hx Obtained From: Patient Onset/Duration: Started Weeks Ago - one month, Still Present Timing: Constant, Lasting Weeks - one month Severity: Moderate - 6/10 Current Severity: Moderate - 6/10 Pain Intensity: 6 Additional Locations for Males: Testicles - left Associated Signs and Symptoms: Negative: Discharge, Fever, Dysuria, Chills Additional Signs & Symptoms: Negative: Penile Discharge Aggravating Factor(s): Walking/Exertion - standing Alleviating Factor(s): Position - sitting/lying down - Additional Pertinent History Primary Care Physician: DARÍO - Allergy/Home Medications Allergies/Adverse Reactions: Allergies Allergy/AdvReac Type Severity Reaction Status Date / Time Penicillins Allergy Rash Verified 05/26/18 12:35 PMH/Surg Hx/FS Hx/Imm Hx Endocrine/Hematology History: Reports: Hx Anticoagulant Therapy, Hx Diabetes - Type 2, Other Endocrine/Hematological Disorders - HLD Cardiovascular History: Reports: Hx Hypertension, Other Cardiovascular Problems/ Disorders - DIABETIC Respiratory History: Reports: Hx Asthma, Hx Chronic Obstructive Pulmonary Disease (COPD), Other Respiratory Problems/Disorders - HX PE 2016 Sensory History: Reports: Hx Contacts or Glasses Denies: Hx Hearing Aid Opthamlomology History: Reports: Hx Contacts or Glasses - Cancer History Cancer Type, Location and Year: None reported - Surgical History Surgery Procedure, Year, and Place: appendectomy Infectious Disease History: No Infectious Disease History: Denies: Traveled Outside the [place] in Last 30 Days - Family History Known Family History: Positive: Hypertension - Social History Alcohol Use: None Hx Substance Use: No Substance Use Type: Reports: None Hx Tobacco Use: Yes Smoking Status (MU): Former Smoker Review of Systems Negative: Fever, Chills Positive: pain - left testicle . Negative: dysuria, discharge - penile All Other Systems Reviewed And Are Negative: Yes Physical Exam - Summary Physical Exam Summary: VITAL SIGNS: Reviewed. GENERAL: Patient is a well-developed and nourished male who is lying comfortable in the stretcher. Patient is not in any acute respiratory distress. HEAD AND FACE: Normocephalic and atraumatic. EYES: PERRLA, EOMI x 2, No injected conjunctiva. EARS: Hearing grossly intact. Ear canals and tympanic membranes are WNL. MOUTH: Oropharynx within normal limits. NECK: Supple, trachea is midline, no adenopathy, no JVD. CHEST: Symmetric, no tenderness at palpation LUNGS: Clear to auscultation bilaterally. No wheezing or crackles. CVS: RRR, S1 and S2 present, no murmurs or gallops appreciated. ABDOMEN: Soft, non-tender. No signs of distention. Positive bowel sounds. No rebound no guarding, and no masses palpated. No abdominal bruit or pulsations. EXTREMITIES: FROM in all major joints, no edema, no cyanosis or clubbing. NEURO: Alert and oriented x 3. No acute neurological deficits. Speech is normal. SKIN: Dry and warm : Uncircumcised penis, both testicles are descended. No masses are appreciated. Positive cremasteric reflex. Triage Information Reviewed: Yes Vital Signs On Initial Exam: Initial Vitals Temp Pulse Resp BP Pulse Ox 98.3 F 77 16 122/75 95 06/09/18 10:47 06/09/18 10:47 06/09/18 10:47 06/09/18 10:47 06/09/18 10:47 Vital Signs Reviewed: Yes Diagnostics - Vital Signs Vital Signs Temp Pulse Resp BP Pulse Ox 06/09/18 10:47 98.3 F 77 16 122/75 95 - Laboratory Lab Statement: Any lab studies that have been ordered have been reviewed, and results considered in the medical decision making process. - Ultrasound No standard instances Ultrasound Interpretation Completed By: Radiologist Summary of Ultrasound Findings: TESTICULAR US IMPRESSION: 1. BILATERAL VARICOCELES, UNCHANGED. 2. LEFT EPIDIDYMAL HEAD CYST, UNCHANGED. 3. NO EVIDENCE FOR TESTICULAR TORSION OR EPIDIDYMITIS. THIS REPORT WAS REVIEWED BY ED PHYSICIAN. Re-Evaluation - Re-Evaluation First Eval Re-Evaluation Time: 12:27 Change: Improved Comment: I discussed all the findings and test results with the patient. Patient was instructed to return to the emergency room immediately if any of the symptoms return or worsens. Plan of care was discussed with the patient and understands and agrees. All questions were answered at patient satisfaction. There were no further complaints or concerns. Lung exam before discharge: CTA B /L. Good air exchange. No wheezing or crackles heard. CVS: S1 and S2 present. No murmurs appreciated. Patient is alert and oriented x 3. Patient is hemodynamically stable. Patient will be discharged home with follow up PCP and urologist in the next 2-3 days. GIGU Course/Dx - Course Assessment/Plan: Patient is a 58 y/o M w/ c/o left testicular pain for the past month. He believes that this pain is related to his varicose veins. Patient reports standing aggravates pain, sitting/lying down alleviates pain. He denies fevers, chills, dysuria, and penile discharge. Patient reports sexual activity only with his who is present in the room. On triage, pain is rated 6/10. Home medications and allergies are reviewed. Testicular ultrasound impression: Bilateral varicoceles unchanged. Left epididymal head cysts unchanged. No evidence for testicular torsion or epididymitis. In the ED course the patient was given a Percocet for pain. At this point I discussed my physical exam, findings and test results with the patient and the need to follow up with urology. The patient will be given a referral for urology. The patient will be given a prescription for [place] for pain. I discussed all the findings and test results with the patient. Patient was instructed to return to the emergency room immediately if any of the symptoms return or worsens. Plan of care was discussed with the patient and understands and agrees. All questions were answered at patient satisfaction. There were no further complaints or concerns. Lung exam before discharge: CTA B/L. Good air exchange. No wheezing or crackles heard. CVS: S1 and S2 present. No murmurs appreciated. Patient is alert and oriented x 3. Patient is hemodynamically stable. Patient will be discharged home with follow up PCP and urologist in the next 2-3 days - Diagnoses Provider Diagnoses: Varicocele, Testicular pain, left Discharge - Sign-Out/Discharge Documenting (check all that apply): Patient Departure - discharge - Discharge Plan Condition: Stable Disposition: HOME Prescriptions: Hydrocodone/Acetaminophen [[place] 5-325 Tablet] 1 each PO Q6H PRN #12 tablet MDD 4 PRN Reason: Pain Patient Education Materials: Testicle Pain (ED) Forms: *Work Release Referrals: [facility] [Provider Group] - 3 Days Edwige Davis MD [Primary Care Provider] - 3 Days Additional Instructions: RETURN TO ED FOR ANY NEW OR WORSENING SYMPTOMS. FOLLOW UP WITH PRIMARY CARE PHYSICIAN AND UROLOGIST IN 2-3 DAYS. - Billing Disposition and Condition Condition: STABLE Disposition: Home - Attestation Statements Document Initiated by Scribe: Yes Documenting Scribe: NENO JAIN Provider For Whom Scribe is Documenting (Include Credential): GT ESCALERA MD Scribe Attestation: NENO Gil , scribed for GT ESCALERA MD on 06/09/18 at 1850. Scribe Documentation Reviewed: Yes Provider Attestation: The documentation as recorded by the NENO coon accurately reflects the service I personally performed and the decisions made by me, GT ESCALERA MD Status of Scribe Document: Viewed
[2018-06-09 12:03] LABS: Urine Appearance Clear; Urine Blood Negative (Negative); Urine Color Yellow; Urine Ketones Negative (Negative); Urine Protein Negative (Negative); Urine Specific Gravity 1.017 (1.010-1.030); Urine Urobilinogen Negative (Negative)
[2018-06-09 12:35] VITALS: BP 142/78
== END | disposition home or self-care (01) ==
LOC: ED 10:45
DX: I86.1 Scrotal varices (principal); N50.812 Left testicular pain; Z88.0 Allergy status to penicillin; Z87.891 Personal history of nicotine dependence; Z79.01 Long term (current) use of anticoagulants; E11.9 Type 2 diabetes mellitus without complications
CPT/HCPCS: 76870; 81003; 99282

== ENCOUNTER 2018-08-19 12:02 | Emergency (ER) | payer OTHER ==
--- NOTE | 2018-08-19 12:28 | ED ---
GI/ HPI - HPI Summary HPI Summary: This patient is a 58 year old M presenting to [facility] with a chief complaint of of bilateral testicular pain that is worse and radiates to the knee on the right for the past three days. Patient states that he was diagnosed with varicoceles roughly 2 months ago. He states his symptoms completely resolved until three days ago. He states pain is worsened with movement. He has not yet set up care with an urologist. - History of Current Complaint Chief Complaint: EDUrogenitalProblems Time Seen by Provider: 08/19/18 12:11 Stated Complaint: SCROTUM PAIN Hx Obtained From: Patient Onset/Duration: Started Days Ago Timing: Constant Current Severity: Severe Pain Intensity: 10 Additional Locations for Males: Testicles Pain Radiates to: Inguinal - to right knee Associated Signs and Symptoms: Positive: Negative Aggravating Factor(s): Movement - Additional Pertinent History Primary Care Physician: DARÍO - Allergy/Home Medications Allergies/Adverse Reactions: Allergies Allergy/AdvReac Type Severity Reaction Status Date / Time Penicillins Allergy Rash Verified 08/06/18 15:48 Home Medications: Home Medications Pentoxifylline CR TAB* [TRENtal CR TAB*] 400 mg PO TID 08/19/18 [History Confirmed 08/19/18] PMH/Surg Hx/FS Hx/Imm Hx Endocrine/Hematology History: Reports: Hx Anticoagulant Therapy, Hx Diabetes - Type 2, Other Endocrine/Hematological Disorders - HLD Cardiovascular History: Reports: Hx Hypertension, Other Cardiovascular Problems/ Disorders - DIABETIC Respiratory History: Reports: Hx Asthma, Hx Chronic Obstructive Pulmonary Disease (COPD), Other Respiratory Problems/Disorders - HX PE 2015 Sensory History: Reports: Hx Contacts or Glasses Denies: Hx Hearing Aid Opthamlomology History: Reports: Hx Contacts or Glasses - Cancer History Cancer Type, Location and Year: None reported - Surgical History Surgery Procedure, Year, and Place: appendectomy Infectious Disease History: No Infectious Disease History: Denies: Traveled Outside the [place] in Last 30 Days - Family History Known Family History: Positive: Hypertension - Social History Alcohol Use: None Hx Substance Use: No Substance Use Type: Reports: None Hx Tobacco Use: Yes Smoking Status (MU): Former Smoker Review of Systems Constitutional: Negative Positive: pain - testicular, radiates to right knee All Other Systems Reviewed And Are Negative: Yes Physical Exam - Summary Physical Exam Summary: Appearance: The patient is well-nourished in no acute distress and in no acute pain. Skin: The skin is warm and dry and skin color reflects adequate perfusion. HEENT: The head is normocephalic and atraumatic. The pupils are equal and reactive. The conjunctivae are clear and without drainage. Nares are patent and without drainage. Mouth reveals moist mucous membranes and the throat is without erythema and exudate. The external ears are intact. The ear canals are patent and without drainage. The tympanic membranes are intact. Neck: The neck is supple with full range of motion and non-tender. There are no carotid bruits. There is no neck vein distension. Respiratory: Chest is non-tender. Lungs are clear to auscultation and breath sounds are symmetrical and equal. Cardiovascular: Heart is regular rate and rhythm. There is no murmur or rub auscultated. There is no peripheral edema and pulses are symmetrical and equal. Abdomen: The abdomen is soft and non-tender. There are normal bowel sounds heard in all four quadrants and there is no organomegaly palpated. : Tender over epididymis on the R, decreased cremaster reflex Musculoskeletal: There is no back tenderness noted. Extremities are non-tender with full range of motion. There is good capillary refill. There is no peripheral edema or calf tenderness elicited. Neurological: Patient is alert and oriented to person, place and time. The patient has symmetrical motor strength in all four extremities. Cranial nerves are grossly intact. Deep tendon reflexes are symmetrical and equal in all four extremities. Psychiatric: The patient has an appropriate affect and does not exhibit any anxiety or depression. Triage Information Reviewed: Yes Vital Signs On Initial Exam: Initial Vitals Temp Pulse Resp BP Pulse Ox 96.6 F 89 19 130/98 95 08/19/18 12:05 08/19/18 12:05 08/19/18 12:05 08/19/18 12:05 08/19/18 12:05 Vital Signs Reviewed: Yes Diagnostics - Vital Signs Vital Signs Temp Pulse Resp BP Pulse Ox 08/19/18 12:05 96.6 F 89 19 130/98 95 - Laboratory Lab Statement: Any lab studies that have been ordered have been reviewed, and results considered in the medical decision making process. - Additional Comments Diagnostic Additional Comments: A testicular US reveals, as per radiologist: 1. NO EVIDENCE FOR TESTICULAR TORSION OR EPIDIDYMITIS. 2. 1.0 CM LEFT EPIDIDYMAL HEAD CYST, UNCHANGED. 3. BILATERAL VARICOCELES, UNCHANGED. ED Physician has reviewed this report. GIGU Course/Dx - Course Course Of Treatment: Mr. Fink has known bilateral varicoceles. 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 His exam was unremarkable aside from some mild tenderness over the epididymis on the right and a decreased cremaster reflex therefore ultrasound was repeated and was negative. I recommended symptomatic treatment and follow-up with urology. - Diagnoses Provider Diagnoses: Varicocele Discharge - Sign-Out/Discharge Documenting (check all that apply): Patient Departure - discharge Patient Received Moderate/Deep Sedation with Procedure: No - Discharge Plan Condition: Stable Disposition: HOME Prescriptions: traMADol TAB* [Ultram*] 50 mg PO Q6HR PRN #20 tab MDD 4 PRN Reason: Pain Patient Education Materials: Varicocele (ED) Referrals: Greyson Joseph MD [Medical Doctor] - 2 Days (Follow up with this or another Urologist. ) Edwige Davis MD [Primary Care Provider] - If Needed Additional Instructions: RETURN TO THE EMERGENCY DEPARTMENT FOR CHANGING OR WORSENING SYMPTOMS. - Billing Disposition and Condition Condition: STABLE Disposition: Home - Attestation Statements Document Initiated by Tito: Yes Documenting Scribe: Nathalia Galdaemz Provider For Whom Deseanibe is Documenting (Include Credential): Cole Hearn MD Scribe Attestation: INathalia, scribed for Cole Hearn MD on 08/20/18 at 1222. Scribe Documentation Reviewed: Yes Provider Attestation: The documentation as recorded by the Nathalia coon accurately reflects the service I personally performed and the decisions made by me, Cole Hearn MD Status of Scribe Document: Viewed
[2018-08-19 12:51] LABS: Urine Appearance Clear; Urine Bilirubin Negative (Negative); Urine Blood Negative (Negative); Urine Color Yellow; Urine Glucose 3+(>=500 mg/dL) (Negative); Urine Ketones Negative (Negative); Urine Nitrite Negative (Negative); Urine Protein Negative (Negative); Urine Specific Gravity 1.027 (1.010-1.030); Urine Urobilinogen Negative (Negative)
[2018-08-19 14:34] VITALS: BP 124/94
== END 2018-08-19 14:33 | disposition home or self-care (01) ==
LOC: ED 12:02
DX: I86.1 Scrotal varices (principal); E11.8 Type 2 diabetes mellitus with unspecified complications; E78.5 Hyperlipidemia, unspecified; I10 Essential (primary) hypertension; J44.9 Chronic obstructive pulmonary disease, unspecified; Z87.891 Personal history of nicotine dependence
CPT/HCPCS: 76870; 81003; 99282

== ENCOUNTER 2018-09-18 09:06 | Emergency (ER) | payer OTHER ==
--- OUTSIDE RECORDS SUMMARY | 2018-09-18 09:14 | XMS REPORT | Continuity of Care Document ---
:1960 External Reference #:[id number] Author Name Ronald Gavin M.D. Address [address] [facility] [address] [place] [address] Care Team Providers Name Role Phone Ronald Gavin M.D. Care Team Information Lab Technologist Unavailable Edwige Davis MD Primary Care Physician Unavailable Payers Date Identification Numbers Payment Provider Subscriber Effective: 2018 Policy Number: [id number] [employer] Ram[employer]rez Fink PayID: [id number] [address] [place] [address] Expires: 2018 Policy Number: [id number] Medicaid Ramírez Fink PayID: [id number] [address] [place] [address] Advance Directives Description No Information Available Problems Date Description Provider Status Onset: 05/04/2018 Screening for malignant neoplasm of Ronald Gavin M.D. Active prostate Onset: 05/04/2018 Pain in scrotum Ronald Gavin M.D. 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 ETOH Use 05/04/2018 Denies alcohol use Tobacco Use Start: Unknown End: Patient is a former quit 2014 1 pp 3-4 Unknown smoker days Recreational Drug Use Denies Drug Use Tobacco Use Start: Unknown quit 3yrs ago Smoking Status Reviewed: 08/21/18 quit 3yrs ago Allergies, Adverse Reactions, Alerts Date Description Reaction Status Severity Comments 05/16/2018 Penicillin Active 05/04/2018 NKDA Inactive Medications Medication Date Status Form Strength Qnty SIG Indications Ordering Provider Xarelto Active Tablets 20mg 1 po qd Unknown 000 Glipizide Active Tablets 5mg 1 po qd Unknown 000 Atorvastatin Active Tablets 20mg 1 po qd Unknown Calcium 000 Spiriva Active Capsules 18mcg 1 w Unknown Handihaler 000 inhaler qd Ventolin HFA Active Aerosol 108(90Base 2 puffs Unknown 000 ) mcg/Act q4h prn Fluticasone HFA Active 110mcg 1 puff Unknown 000 twice daily Metoprolol Active Tablets 25mg 1po daily Unknown Tartrate 000 Gabapentin Hx Capsules 300mg 60caps 1 tab by N50.82 Romaine, 018 - mouth Mahmoud, three M.D. 019 times a day as needed for pain Metoprolol Hx 25 mno Unknown 000 - dose given 019 Immunizations Description No Information Available Vital Signs Date Vital Result Comment 08/22/2018 10:56am BP Systolic Sitting Left Arm 132 mmHg BP Diastolic Sitting Left Arm 90 mmHg Body Temperature 98.5 F Heart Rate 84 /min Respiratory Rate 16 /min Height 72 inches 6'0" Weight 301.00 lb BMI (Body Mass Index) 40.8 kg/m2 BSA (Body Surface Area) 2.53 m2 [place] body weight in kilograms 81 kg O2 % BldC Oximetry 98 % Pain Level 9 testicular pain 05/16/2018 12:30pm BP Systolic 137 mmHg BP Diastolic 81 mmHg Heart Rate 83 /min Respiratory Rate 18 /min Height 72 inches 6'0" Weight 299.25 lb BMI (Body Mass Index) 40.6 kg/m2 BSA (Body Surface Area) 2.53 m2 [place] body weight in kilograms 81 kg O2 % BldC Oximetry 97 % Pain Level 7 Left testicle 05/04/2018 11:44am BP Systolic 146 mmHg BP Diastolic 98 mmHg Body Temperature 97.9 F Heart Rate 72 /min Respiratory Rate 16 /min Height 72 inches 6'0" Weight 293.50 lb BMI (Body Mass Index) 39.8 kg/m2 BSA (Body Surface Area) 2.51 m2 [place] body weight in kilograms 81 kg O2 % BldC Oximetry 97 % Pain Level 1 scrotal region Results Test Date Facility Test Result H/L Range Note Urine Dipstick 05/04/2018 [facility]a Color yellow Yellow Ua Clarity clear Clear Ua Leuko neg Negative Ua Nitrite neg Negative Ua Urobilinogen 3.5 High 0.2 - 1.0 E.U./dL Ua Protein neg Negative Ua PH 5.5 Low 6.5-7.5 Ua Blood neg Negative Ua Specific [place] 1.030. 1.010-1.030 Ua Ketones neg Negative Ua Bilirubin neg Negative Ua Glucose neg Negative Laboratory test 05/04/2018 [facility] Prostate 1.03 ng/mL < 4.0 1, 2 finding [address] [facility] [place] [address] Antigen [phone] Ua RFX Micro & 05/04/2018 [facility] Urine Color YELLOW Yellow 3 Culture II [address] [place] [address] [phone] Urine Clarity TURBID Clear Urine Glucose - Dipstick NEGATIVE mg/dL Negative Urine Bilirubin - Dipstick NEGATIVE Negative Urine Ketone NEGATIVE mg/dL Negative Urine Specific [place] 1.025 N 1.010-1.030 Urine Blood NEGATIVE Negative Urine PH 5.5 Low 6.5-7.5 Urine Protein - Dipstick NEGATIVE mg/dL Negative Urine Urobilinogen - Dipstick 0.2 E.U./dL N 0.2-1.0 Urine Nitrite - Dipstick NEGATIVE Negative Urine Leuk Esterase NEGATIVE Negative Source: URINE, CLEAN CAT <SEE NOTE> 4 1 Z12.5 2 THIS ASSAY IS NOT INTENDED A CANCER SCREENING TEST The concentration of PSA in a given specimen, determined with assays from different manufacturers, can vary due to differences in assay methods and reagent specificity. Values obtained from different assay methods cannot be used interchangeably. Method: [employer] [place] Chemiluminescent immunoassay. 3 N50.82 4 URINE, CLEAN CATCH Procedures Date Code Description Status 05/04/2018 79312 Measurement Post Voiding Residual Urine By Completed Ultrasound,Non-Imaging 05/04/2018 19491 complex uroflowmetry electronic Completed Encounters Type Date Location Provider Dx Diagnosis Office Visit 08/22/2018 11:15a Urology Leandro Sparks PA N50.82 Scrotal pain Office Visit 05/16/2018 12:30p Urology Ronald Gavin M.D. N50.82 Scrotal pain Office Visit 05/04/2018 11:00a Urology Ronald Gavin M.D. N50.82 Scrotal pain Z12.5 Encounter for screening for malignant neoplasm of prostate Plan of Treatment Future Appointment(s):11/19/2018 2:45 pm - Leandro Sparks, PA at [id number] - Leandro Sparks, PAN50.82 Scrotal painComments:I once again offered him if he like I can refer him to the pain clinic. My suggestion would be as follows scrotal support. I provided a scrotal support and how to appropriately wear. Get out of thebrief underwear and where loose boxer's with a scrotal support. Ibuprofen 600 mg with food 3 times a day. When he is driving of his scrotum elevated when he gets home rest with scrotal elevation and ice. See the patient back in 3 months.Again he inquired regarding surgical remedies however there isno assurance that he is going to not have the same discomfort postoperatively. Patient is reassuredLC him in 3 months
[2018-09-18 09:26] VITALS: BP 134/86
--- NOTE | 2018-09-18 09:40 | UC ---
General HPI - HPI Summary HPI Summary: 58 yo gentleman c/o progressive cough since approx one week. Seen in [place] - influ neg, states cxr neg. Placed on zpack and prednisone 20mg po bid. But feels worse. Hx PE but doesn't feel like it. Concerned about pneumonia. No cp / palpitations. No GI Issues. Uses cpap at night. No GI issues. No issues. No pnd. No new orthopnea. No rash. Requests a different abx. - History of Current Complaint Chief Complaint: UCGeneralIllness Stated Complaint: COUGH COPD Time Seen by Provider: 09/18/18 09:17 Hx Obtained From: Patient Pain Intensity: 0 - Allergy/Home Medications Allergies/Adverse Reactions: Allergies Allergy/AdvReac Type Severity Reaction Status Date / Time Penicillins Allergy Rash Verified 09/18/18 09:14 Home Medications: Home Medications Azithromycin TAB* [Zithromax TAB (Z-YAMILKA) 250 mg #6 tabs] 250 mg PO DAILY [History Confirmed 09/18/18] predniSONE [Prednisone 20 MG TAB] 20 mg PO BID 09/18/18 [History Confirmed 09/18] PMH/Surg Hx/FS Hx/Imm Hx Previously Healthy: No - see below Other History Of: Anticoagulant Therapy - Surgical History Surgical History: Yes Surgery Procedure, Year, and Place: appendectomy - Family History Known Family History: Positive: Hypertension - Social History Alcohol Use: None Substance Use Type: None Smoking Status (MU): Former Smoker Length of Time of Smoking/Using Tobacco: 30+ years When Did the Patient Quit Smoking/Using Tobacco: 2014 Review of Systems All Other Systems Reviewed And Are Negative: Yes Constitutional: Positive: Other - see hpi Skin: Positive: Other - see hpi Eyes: Positive: Other - see hpi ENT: Positive: Other - see hpi Respiratory: Positive: Cough Cardiovascular: Positive: Other - see hpi Gastrointestinal: Positive: Other - see hpi Genitourinary: Positive: Other - see hpi Motor: Positive: Other Neurovascular: Positive: Other Musculoskeletal: Positive: Other: Neurological: Positive: Other Psychological: Positive: Other Physical Exam Triage Information Reviewed: Yes Appearance: Well-Nourished - sitting up, conversing in full sentences Vital Signs: Initial Vital Signs Temp 97 F 09/18/18 09:19 Pulse 76 09/18/18 09:19 Resp 20 09/18/18 09:19 BP 134/86 09/18/18 09:19 Pulse Ox 97 09/18/18 09:19 Vital Signs Reviewed: Yes Eye Exam: Normal - grossly normal ENT Exam: Normal ENT: Positive: Pharyngeal erythema - mild red, c/w cougyh, Nasal congestion, TM dull, TM red - Left TM red. C/w barotrauma. INtact Neck exam: Normal Neck: Positive: Supple, Nontender Respiratory Exam: Other - BS full + exp wheeze. + rhonchorus cough. + rhonchi R base. Respiratory: Positive: No respiratory distress, No accessory muscle use Cardiovascular Exam: Normal Cardiovascular: Positive: RRR, No Murmur, Pulses Normal, Brisk Capillary Refill Abdominal Exam: Normal Abdomen Description: Positive: Nontender Musculoskeletal Exam: Normal - no unilateral LE edema Neurological Exam: Normal - grossly nonfocal Psychological Exam: Normal - conversing easily Skin Exam: Normal - nondiaphoretic no visible or reported rash Course/Dx - Course Course Of Treatment: CXR - no acute dz. Reviewed report with pt and . Reviewed coa / tx plan. questions as posed answered to the best of my ability. Feels "clearer" s/p neb tx. Has nebulizer with meds at home, will use. Reviewed coa / tx plan. Questions as posed answered to the best of my ability. - Diagnoses Provider Diagnosis: Bronchitis, Wheeze Discharge - Sign-Out/Discharge Documenting (check all that apply): Patient Departure All imaging exams completed and their final reports reviewed: Yes - Discharge Plan Condition: Improved Disposition: HOME Patient Education Materials: Acute Bronchitis (ED), COPD (Chronic Obstructive Pulmonary Disease) (ED), Bronchospasm (ED) Forms: *Work Release Referrals: Edwige Davis MD [Primary Care Provider] - Additional Instructions: Stop azithromycin. Start doxycycline. Seek medical treatment worse or new problems. Please follow up with your primary care physician in the next 2 weeks. Drink plenty of water. - Billing Disposition and Condition Condition: IMPROVED Disposition: Home
[2018-09-18] MEDS ORDERED: Albuterol/Ipratropium NEB.SOL* Albuterol 2.5 MG/Ipratropium 0.5 MG 3 ML INH ONE (09:51)
== END 2018-09-18 11:00 | disposition home or self-care (01) ==
LOC: UCEAST 09:06
DX: J40 Bronchitis, not specified as acute or chronic (principal); Z79.01 Long term (current) use of anticoagulants; Z88.0 Allergy status to penicillin; Z87.891 Personal history of nicotine dependence
CPT/HCPCS: 71046; 99212; A9270-GY; G0463

== ENCOUNTER 2018-09-22 09:57 | Emergency (ER) | payer OTHER ==
--- NOTE | 2018-09-22 10:42 | ED ---
HPI Diabetic - HPI Summary HPI Summary: This patient is a 58 year old M presenting to [facility] with a chief complaint of high blood sugar that began THUMB SEWER. The patient rates the pain 0/10 in severity. Symptoms aggravated by nothing. Symptoms alleviated by nothing. Patient reports increased urinary output and productive cough. Patient was placed on Prednisone recently. Patient states the last dose of Prednisone he took was approximately two days ago. Patient states his blood sugar was 130 prior to being put on prednisone. - History Of Current Complaint Chief Complaint: EDGeneral Time Seen by Provider: 09/22/18 10:34 Hx Obtained From: Patient Onset/Duration: Sudden Onset, Lasting Hours, Still Present Timing: Constant Severity Initially: Mild Severity Currently: Mild Character: Alert Aggravating: Nothing Alleviating: Nothing - Allergies/Home Medications Allergies/Adverse Reactions: Allergies Allergy/AdvReac Type Severity Reaction Status Date / Time Penicillins Allergy Rash Verified 09/18/18 09:14 PMH/Surg Hx/FS Hx/Imm Hx Previously Healthy: No Endocrine/Hematology History: Reports: Hx Anticoagulant Therapy, Hx Diabetes - Type 2, Other Endocrine/Hematological Disorders - HLD Cardiovascular History: Reports: Hx Hypertension, Other Cardiovascular Problems/ Disorders - DIABETIC Respiratory History: Reports: Hx Asthma, Hx Chronic Obstructive Pulmonary Disease (COPD), Other Respiratory Problems/Disorders - PE 3 years ago Sensory History: Reports: Hx Contacts or Glasses Denies: Hx Hearing Aid Opthamlomology History: Reports: Hx Contacts or Glasses - Cancer History Cancer Type, Location and Year: None reported - Surgical History Surgery Procedure, Year, and Place: appendectomy Infectious Disease History: No Infectious Disease History: Denies: Traveled Outside the [place] in Last 30 Days - Family History Known Family History: Positive: Hypertension - Social History Occupation: Employed Full-time Lives: With Family Alcohol Use: None Hx Substance Use: No Substance Use Type: Reports: None Hx Tobacco Use: Yes Smoking Status (MU): Former Smoker Length of Time of Smoking/Using Tobacco: 30+ years Review of Systems Positive: Other - Positive high blood sugar Positive: Cough Genitourinary: Other - Positive increased urinary output All Other Systems Reviewed And Are Negative: Yes Physical Exam - Summary Physical Exam Summary: Appearance: Well appearing, no pain distress Skin: warm, dry, reflects adequate perfusion Head/face: normal Eyes: EOMI, MEHUL ENT: mucous membranes moist. Throat is clear. Neck: supple, non-tender Respiratory: CTA, breath sounds present Cardiovascular: RRR, pulses symmetrical. Blood sugar was 340. Abdomen: non-tender, soft Bowel Sounds: present Musculoskeletal: normal, strength/ROM intact Neuro: normal, sensory motor intact, A&Ox3 Triage Information Reviewed: Yes Vital Signs On Initial Exam: Initial Vitals Temp Pulse Resp BP Pulse Ox 98.4 F 82 20 129/91 96 09/22/18 10:01 09/22/18 10:09/22/18 10:09/22/18 10:01 09/22/18 10:01 Vital Signs Reviewed: Yes Diagnostics - Vital Signs Vital Signs Temp Pulse Resp BP Pulse Ox 09/22/18 10:01 98.4 F 82 20 129/91 96 - Laboratory Lab Statement: Any lab studies that have been ordered have been reviewed, and results considered in the medical decision making process. Diabetic Course/Dx - Course Course Of Treatment: Nurse's notes reviewed. Patient is currently relatively asymptomatic but has high blood sugar following administration of prednisone for the last several days. He did stop this but his sugar still up. Today it is 342 after breakfast. He took glipizide 5 mg this morning and will take an additional tablet now. He is instructed to limit his carbohydrates, drink plenty of water and not take any more prednisone. The only other new medication that he is on his doxycycline. His cough, congestion is much better and his lungs are clear. He'll be discharged to follow up closely with his primary care physician. - Diagnoses Differential Dx: Diabetic Ketoacidosis, Hyperglycemia, Hyperosmolar State - medication induced, Other Provider Diagnoses: Adverse effects of medication, Upper respiratory infection, Diabetes mellitus with hyperglycemia Discharge - Sign-Out/Discharge Documenting (check all that apply): Patient Departure Patient Received Moderate/Deep Sedation with Procedure: No - Discharge Plan Condition: Good Disposition: HOME Patient Education Materials: Diabetic Hyperglycemia (ED) Referrals: Edwige Davis MD [Primary Care Provider] - Additional Instructions: Drink plenty of fluids. Continue doxycycline as ordered by your doctor. This is likely caused by the prednisone. This should improve. Drink plenty of water and limit your carbohydrates. Return with sugars greater than 400, chest pain, difficulty breathing, worse, new symptoms or other concerns. Follow up with your primary care physician on Monday. - Billing Disposition and Condition Condition: GOOD Disposition: Home - Attestation Statements Document Initiated by Scribe: Yes Documenting Scribe: Gayla Collins Provider For Whom Scribe is Documenting (Include Credential): Dr. Bobo Siegel MD Scribe Attestation: I, Gayla Collins, scribed for Dr. Bobo Siegel MD on 09/22/18 at 1104. Scribe Documentation Reviewed: Yes Provider Attestation: The documentation as recorded by the Gayla coon accurately reflects the service I personally performed and the decisions made by me, Dr. Bobo Siegel MD Status of Scribe Document: Viewed
[2018-09-22 10:58] VITALS: BP 130/89
== END 2018-09-22 10:57 | disposition home or self-care (01) ==
LOC: ED 09:57
DX: J06.9 Acute upper respiratory infection, unspecified (principal); E11.65 Type 2 diabetes mellitus with hyperglycemia; T50.905A Adverse effect of unspecified drugs, medicaments and biological substances, initial encounter; Y92.9 Unspecified place or not applicable; I10 Essential (primary) hypertension; J44.9 Chronic obstructive pulmonary disease, unspecified; Z87.891 Personal history of nicotine dependence; Z79.01 Long term (current) use of anticoagulants; E78.5 Hyperlipidemia, unspecified; Z88.0 Allergy status to penicillin
CPT/HCPCS: 99281

== ENCOUNTER 2018-10-14 13:11 | Emergency (ER) | payer OTHER ==
--- OUTSIDE RECORDS SUMMARY | 2018-10-14 13:16 | XMS REPORT | Continuity of Care Document ---
:1960 External Reference #:[id number] Author Name Ronald Gavin M.D. Address [address] [place] [address] Care Team Providers Name Role Phone Ronald Gavin M.D. Care Team Information Air Analysis Technician Unavailable Edwige Davis MD Primary Care Physician Unavailable Payers Date Identification Numbers Payment Provider Subscriber Effective: 2018 Policy Number: [id number] [employer] Ramírez Fink PayID: [id number] [address] [place] [address] Expires: 2018 Policy Number: [id number] Medicaid Ramírez Fink PayID: [id number] [address] [place] [address] Advance Directives Description No Information Available Problems [...] Unknown quit 3yrs ago Smoking Status Reviewed: 09/25/18 quit 3yrs ago Allergies, Adverse Reactions, Alerts [...] Available Vital Signs Date Vital Result Comment 09/25/2018 2:25pm BP Systolic 124 mmHg BP Diastolic 87 mmHg Body Temperature 97.7 F Heart Rate 81 /min Respiratory Rate 18 /min Weight 294.00 lb O2 % BldC Oximetry 96 % Pain Level 5 upper right leg 08/22/2018 10:56am BP Systolic Sitting Left Arm 132 mmHg BP Diastolic Sitting Left Arm 90 mmHg Body Temperature 98.5 F Heart Rate 84 /min Respiratory Rate 16 /min Height 72 inches 6'0" Weight 301.00 lb BMI (Body Mass Index) 40.8 kg/m2 BSA (Body Surface Area) 2.53 m2 [place] body weight in kilograms 81 kg O2 % BldC Oximetry 98 % Pain Level 9 testicular pain 05/16/2018 12:30pm BP Systolic 137 mmHg BP Diastolic 81 mmHg Heart Rate 83 /min Respiratory Rate 18 /min Height 72 inches 6'0" Weight 299.25 lb BMI (Body Mass Index) 40.6 kg/m2 BSA (Body Surface Area) 2.53 m2 [place] body weight in kilograms 81 kg O2 % BldC Oximetry 97 % Pain Level 7 Left testicle 05/04/2018 11:44am BP Systolic 146 mmHg BP Diastolic 98 mmHg Body Temperature 97.9 F Heart Rate 72 /min Respiratory Rate 16 /min Height 72 inches 6'0" Weight 293.50 lb BMI (Body Mass Index) 39.8 kg/m2 BSA (Body Surface Area) 2.51 m2 [place] body weight in kilograms 81 kg O2 [...] 6.5-7.5 Ua Blood neg Negative Ua Specific [place] 1.030. 1.010-1.030 Ua Ketones neg Negative Ua Bilirubin neg Negative Ua Glucose neg Negative Laboratory test 05/04/2018 [facility] Prostate 1.03 ng/mL < 4.0 1, 2 finding [address] [place] [address] Antigen [phone] Ua RFX Micro & 05/04/2018 [facility] Urine Color YELLOW Yellow 3 Culture II [address] [place] [address] [phone] Urine Clarity TURBID Clear Urine Glucose - Dipstick NEGATIVE mg/dL Negative Urine Bilirubin - Dipstick NEGATIVE Negative Urine Ketone NEGATIVE mg/dL Negative Urine Specific [place] 1.025 N 1.010-1.030 Urine Blood NEGATIVE Negative [...] assay methods cannot be used interchangeably. Method: [employer] [place] Chemiluminescent immunoassay. 3 N50.82 4 URINE, CLEAN CATCH Procedures Date Code Description Status 05/04/2018 34126 Measurement Post Voiding Residual Urine By Completed Ultrasound,Non-Imaging 05/04/2018 53449 complex uroflowmetry electronic Completed Encounters Type Date Location Provider Dx Diagnosis Office Visit 09/25/2018 2:30p Urology Leandro Sparks PA N50.82 Scrotal pain I83.819 Varicose veins of unspecified lower extremity with pain Office Visit 08/22/2018 11:15a Urology Leandro Sparks PA N50.82 Scrotal pain Office Visit 05/16/2018 12:30p Urology Ronald Gavin M.D. N50.82 Scrotal pain Office Visit 05/04/2018 11:00a Urology Ronald Gavin M.D. N50.82 Scrotal pain Z12.5 Encounter for screening for malignant neoplasm of prostate Plan of Treatment 09/25/2018 - Leandro Sparks, PAN50.82 Scrotal painComments:Continue scrotal support scrotal elevation and anti-inflammatories.I83.819 Varicose veins of unspecified lower extremity with painComments:Recommended he contact his primary care doctor and be evaluated for his right lower extremity varicose vein
[2018-10-14 13:29] VITALS: BP 125/86
--- NOTE | 2018-10-14 15:22 | UC ---
Complaint Male HPI - HPI Summary HPI Summary: 58 year old male with h/o DM, with c/o new onset urinary incontinence. 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 no episodes on monday, but + again this AM upon waking. no burning, hematuria, dysuria. urine normal color , no odor. Denies pain. no h/o prostate problems. - History of Current Complaint Chief Complaint: UCGU Stated Complaint: URINARY COMPLAINT Time Seen by Provider: 10/14/18 14:35 Hx Obtained From: Patient, Family/Rfid Specialist - Onset/Duration: Sudden Onset, Lasting Days Timing: Intermittent Pain Intensity: 0 Pain Scale Used: 0-10 Numeric Aggravating Factor(s): Voiding - Allergies/Home Medications Allergies/Adverse Reactions: Allergies Allergy/AdvReac Type Severity Reaction Status Date / Time Penicillins Allergy Rash Verified 10/14/18 13:29 PMH/Surg Hx/FS Hx/Imm Hx Previously Healthy: Yes Other History Of: Anticoagulant Therapy - Surgical History Surgical History: Yes Surgery Procedure, Year, and Place: appendectomy - Family History Known Family History: Positive: Hypertension - Social History Alcohol Use: None Substance Use Type: None Smoking Status (MU): Former Smoker Length of Time of Smoking/Using Tobacco: 30+ years When Did the Patient Quit Smoking/Using Tobacco: 5 yrs Review of Systems All Other Systems Reviewed And Are Negative: Yes Constitutional: Positive: Negative Genitourinary: Positive: Other - incontinence Is Patient Immunocompromised?: No Physical Exam Triage Information Reviewed: Yes Appearance: Well-Appearing, No Pain Distress, Well-Nourished Vital Signs: Initial Vital Signs Temp 97.6 F 10/14/18 13:26 Pulse 89 10/14/18 13:26 Resp 16 10/14/18 13:26 BP 125/86 10/14/18 13:26 Pulse Ox 94 10/14/18 13:26 Vital Signs Reviewed: Yes Eyes: Positive: Conjunctiva Clear Abdomen Description: Positive: Other: - tenderness over suprapubic region. no cva tenderness. Negative: CVA Tenderness (R), CVA Tenderness (L) Male Genital Exam: Positive: Other - prostate normal, firm. non tender Neurological Exam: Normal Psychological Exam: Normal Skin Exam: Normal Complaint Male Course/Dx - Course Course Of Treatment: UA negative for UTI, however due to symptoms and risk factors, patient treated with ABX, cultures sent. WIll follow up with urology, has physician, will call on monday. - Differential Dx/Diagnosis Provider Diagnosis: Incontinence Discharge - Sign-Out/Discharge Documenting (check all that apply): Patient Departure All imaging exams completed and their final reports reviewed: No Studies - Discharge Plan Condition: Good Disposition: HOME Prescriptions: Sulfamethox/Trimethoprim DS* [Bactrim DS 800/160 TAB*] 1 tab PO BID #10 tab Patient Education Materials: Urinary Incontinence (ED), Kegel Exercises for Men (DC) Forms: *Work Release Referrals: Edwige Davis MD [Primary Care Provider] - Additional Instructions: - Call urology tomorrow, set up appointment - Antibiotics as directed - Kegel exercises as shown on handout - Continue to monitor blood sugars - Billing Disposition and Condition Condition: GOOD Disposition: Home - Attestation Statements Provider Attestation: I was available for consult. This patient was seen by the [facility] and plan of care discussed with me. The patient was not seen by or examined by me -Lew Oro MD
== END 2018-10-14 15:20 | disposition home or self-care (01) ==
LOC: UCEAST 13:11
DX: R32 Unspecified urinary incontinence (principal); E11.9 Type 2 diabetes mellitus without complications; Z88.0 Allergy status to penicillin; Z87.891 Personal history of nicotine dependence
CPT/HCPCS: 81003; 87086; 99212; G0463

== ENCOUNTER 2018-11-25 12:05 | Emergency (ER) | payer OTHER ==
[2018-11-25 12:23] VITALS: BP 114/78
[2018-11-25] MEDS ORDERED: Ipratropium 0.5MG/2.5ML NEB* 0.5 MG/2.5 ML NEB.SOLN INH ONE (12:38)
[2018-11-25] MEDS ORDERED: Albuterol 2.5 MG/3 ML NEB.SOL* (0.083%) INH ONE (12:38)
[2018-11-25] MEDS ORDERED: predniSONE TAB* 20 MG PO ONE (13:22)
--- NOTE | 2018-11-25 13:29 | UC ---
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 took two puffs on inhaler and felt better but decided to come here to get checked out no CP hx copd 3 weeks ago admitted to [facility] with severe dyspnea and left sided CP Had MD ruled out and is soon scheduled for EST He states he also HAD A CTA to r/o PE remote hx PE - History of Current Complaint Chief Complaint: UCRespiratory Stated Complaint: SHORTNESS OF BREATH Hx Obtained From: Patient Onset/Duration: Sudden Onset, Lasting Minutes Timing: Constant Severity Initially: Moderate Severity Currently: None Pain Intensity: 0 Pain Scale Used: 0-10 Numeric Character: Cough: Nonproductive Aggravating Factors: Nothing Alleviating Factors: Bronchodilator Associated Signs And Symptoms: Positive: Dyspnea - resolved, Nasal Congestion. Negative: Fever, Chills, Pleuritic Chest Pain, Wheezing, Hemoptysis, Dizziness, Calf Pain, Calf Swelling, Edema, URI, Hoarseness, Sinus Discomfort - Allergies/Home Medications Allergies/Adverse Reactions: Allergies Allergy/AdvReac Type Severity Reaction Status Date / Time Penicillins Allergy Rash Verified 11/25/18 12:22 PMH/Surg Hx/FS Hx/Imm Hx Previously Healthy: Yes Endocrine History: Diabetes, Dyslipidemia Respiratory History: COPD, Pulmonary Embolism Other History Of: Anticoagulant Therapy - Surgical History Surgical History: Yes Surgery Procedure, Year, and Place: appendectomy - Family History Known Family History: Positive: Hypertension - Social History Alcohol Use: None Substance Use Type: None Smoking Status (MU): Former Smoker Length of Time of Smoking/Using Tobacco: 30+ years When Did the Patient Quit Smoking/Using Tobacco: 5 yrs Review of Systems All Other Systems Reviewed And Are Negative: Yes Constitutional: Positive: Negative Skin: Positive: Negative Eyes: Positive: Negative ENT: Positive: Negative Respiratory: Positive: Shortness Of Breath - resolved Cardiovascular: Positive: Negative Gastrointestinal: Positive: Negative Genitourinary: Positive: Negative Motor: Positive: Negative Neurovascular: Positive: Negative Musculoskeletal: Positive: Negative Neurological: Positive: Negative Psychological: Positive: Negative Physical Exam Triage Information Reviewed: Yes Appearance: Well-Appearing, No Pain Distress, Well-Nourished Vital Signs: Initial Vital Signs Temp 97.8 F 11/25/18 12:19 Pulse 78 11/25/18 12:19 Resp 20 05/19/19 12:19 BP 114/78 11/25/18 12:19 Pulse Ox 98 11/25/18 12:19 Vital Signs Reviewed: Yes Eyes: Positive: Conjunctiva Clear ENT: Positive: Hearing grossly normal, Uvula midline. Negative: Nasal congestion, Nasal drainage, Tonsillar swelling, Tonsillar exudate Dental Exam: Normal Neck: Positive: Supple, Nontender, No Lymphadenopathy Respiratory: Positive: Lungs clear, Normal breath sounds, No respiratory distress, No accessory muscle use, Other: - sound a little tight with forced expiration Cardiovascular: Positive: RRR, No Murmur Abdomen Description: Positive: Nontender Musculoskeletal: Positive: ROM Intact, No Edema Neurological: Positive: Alert Psychological Exam: Normal Skin Exam: Normal Re-Evaluation - Re-Evaluation First Eval Re-Evaluation Time: 13:15 Change: Improved - lungs CTA Respiratory Course/Dx - Differential Dx/Diagnosis Provider Diagnosis: COPD with acute exacerbation Discharge - Sign-Out/Discharge Documenting (check all that apply): Patient Departure All imaging exams completed and their final reports reviewed: No Studies - Discharge Plan Condition: Improved Disposition: HOME Prescriptions: predniSONE [Deltasone 20 MG TAB] 40 mg PO DAILY #8 tab Patient Education Materials: COPD (Chronic Obstructive Pulmonary Disease) (DC) Forms: *Work Release Referrals: Edwige Davis MD [Primary Care Provider] - If Needed (Call office in AM to discuss this visit and determine appropriate follow up) Additional Instructions: use inhalers as directed TO ER FOR NEW OR WORSENING SYMPTOMS - Billing Disposition and Condition Condition: IMPROVED Disposition: Home
== END 2018-11-25 13:35 | disposition home or self-care (01) ==
LOC: UCEAST 12:05
DX: J44.1 Chronic obstructive pulmonary disease with (acute) exacerbation (principal); R09.81 Nasal congestion; E11.9 Type 2 diabetes mellitus without complications; Z86.711 Personal history of pulmonary embolism; Z79.01 Long term (current) use of anticoagulants; Z88.0 Allergy status to penicillin; Z87.891 Personal history of nicotine dependence
CPT/HCPCS: 99212; G0463; J7512

== ENCOUNTER 2018-12-27 09:42 | Emergency (ER) | payer OTHER ==
[2018-12-27 09:53] VITALS: BP 136/87
--- NOTE | 2018-12-27 10:09 | UC ---
General HPI - HPI Summary HPI Summary: States about 6 days ago he was helping friends lift a piano up on a small lift. He tweaked his back and was not able to get out of bed initially for the first two days. Has been taking ibuprofen. Pain overall seems better. However he is concerned that he needs a note to go back to work. 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 No heavy lifting. HE feels like he could go back. No numnbness or tingling. States he has issues with his varicose veins. NO loss of bowel or bladder control. Meds: reviewed - History of Current Complaint Chief Complaint: UCBackPain Stated Complaint: BACK PAIN Time Seen by Provider: 12/27/18 09:45 Pain Intensity: 0 - Allergy/Home Medications Allergies/Adverse Reactions: Allergies Allergy/AdvReac Type Severity Reaction Status Date / Time Penicillins Allergy Rash Verified 12/27/18 09:53 Home Medications: Home Medications metFORMIN* [Glucophage 500 MG TAB *] 500 mg PO BID 12/27/18 [History Confirmed 12/27/18] PMH/Surg Hx/FS Hx/Imm Hx Previously Healthy: Yes Endocrine History: Diabetes Cardiovascular History: Hypertension Respiratory History: COPD Other History Of: Anticoagulant Therapy - Surgical History Surgical History: Yes Surgery Procedure, Year, and Place: appendectomy - Family History Known Family History: Positive: Hypertension - Social History Alcohol Use: None Substance Use Type: None Smoking Status (MU): Former Smoker Length of Time of Smoking/Using Tobacco: 30+ years When Did the Patient Quit Smoking/Using Tobacco: 5 yrs Review of Systems All Other Systems Reviewed And Are Negative: Yes Physical Exam Triage Information Reviewed: Yes Appearance: Well-Appearing Vital Signs: Initial Vital Signs Temp 97.6 F 12/27/18 09:46 Pulse 87 12/27/18 09:46 Resp 16 12/27/18 09:46 BP 136/87 12/27/18 09:46 Pulse Ox 98 12/27/18 09:46 Vital Signs Reviewed: Yes Musculoskeletal: Positive: Other: - paraspinal lumbar tenderness - mild. FROM. Normal neuro exam. Course/Dx - Course Course Of Treatment: This is a 58 yr old with low back pain Assessment Clinically improving No neuro deficits Plan Can continue ibuprofen as needed for pain - take with food Can return to work without any restrictions Can use a heating pack as needed REcommend gentle back stretches and exercises - Diagnoses Provider Diagnosis: Low back pain Discharge - Sign-Out/Discharge Documenting (check all that apply): Patient Departure All imaging exams completed and their final reports reviewed: No Studies - Discharge Plan Condition: Good Disposition: HOME Patient Education Materials: Acute Low Back Pain (ED) Forms: *Work Release Referrals: Edwige Davis MD [Primary Care Provider] - Additional Instructions: Can continue ibuprofen as needed for pain - take with food Can return to work without any restrictions Can use a heating pack as needed REcommend gentle back stretches and exercises - Billing Disposition and Condition Condition: GOOD Disposition: Home
== END 2018-12-27 10:20 | disposition home or self-care (01) ==
LOC: UCEAST 09:42
DX: M54.5 Low back pain (principal); E11.9 Type 2 diabetes mellitus without complications; I10 Essential (primary) hypertension; J44.9 Chronic obstructive pulmonary disease, unspecified; Z79.84 Long term (current) use of oral hypoglycemic drugs; Z88.0 Allergy status to penicillin; Z87.891 Personal history of nicotine dependence
CPT/HCPCS: 99211; G0463

== ENCOUNTER 2019-01-17 09:11 | Emergency (ER) | payer OTHER ==
[2019-01-17] MEDS ORDERED: Morphine 4 MG/ML VIAL (1 ml) 4 MG/ML VIAL IV ONE (09:23)
--- NOTE | 2019-01-17 09:34 | ED ---
Shortness of Breath - HPI Summary HPI Summary: This patient is a 58 year old M presenting to [facility] accompanied by with a chief complaint of intermittent SOB since 01/14/19. Pt had an episode of SOB today , took his medication, but still had SOB. In addition he felt sore in the chest region, and reports he felt something similar to a thump. Pt denies current CP. Pt reports orthopnea. Pt has a PMHx of Asthma and COPD. He previously had an episode on 01/14/19 and went over to [facility], and they kept him overnight, and he was given albuterol, and the SOB reduced, so they assumed that it was due to his asthma. - History of Current Complaint Chief Complaint: EDShortnessOfBreath Time Seen by Provider: 01/17/19 09:22 Hx Obtained From: Patient Onset/Duration: Lasting Hours, Still Present Timing: Intermittent Episodes Lasting: - hours Dyspnea At: Orthopena Alleviating Factors: Bronchodilators Associated Signs & Symptoms: Chest Pain Unrelated to Cough - Allergy/Home Medications Allergies/Adverse Reactions: Allergies Allergy/AdvReac Type Severity Reaction Status Date / Time Penicillins Allergy Rash Verified 12/27/18 09:53 PMH/Surg Hx/FS Hx/Imm Hx Endocrine/Hematology History: Reports: Hx Anticoagulant Therapy, Hx Diabetes - Type 2, Other Endocrine/Hematological Disorders - HLD Cardiovascular History: Reports: Hx Hypertension, Other Cardiovascular Problems/ Disorders - DIABETIC Respiratory History: Reports: Hx Asthma, Hx Chronic Obstructive Pulmonary Disease (COPD), Other Respiratory Problems/Disorders - PE 3 years ago Sensory History: Reports: Hx Contacts or Glasses Denies: Hx Hearing Aid Opthamlomology History: Reports: Hx Contacts or Glasses - Cancer History Cancer Type, Location and Year: None reported - Surgical History Surgery Procedure, Year, and Place: appendectomy - Immunization History Immunizations Up to Date: Yes Infectious Disease History: No Infectious Disease History: Denies: Traveled Outside the [place] in Last 30 Days - Family History Known Family History: Positive: Hypertension - Social History Alcohol Use: None Hx Substance Use: No Substance Use Type: Reports: None Hx Tobacco Use: Yes Smoking Status (MU): Former Smoker Length of Time of Smoking/Using Tobacco: 30+ years Review of Systems Positive: Chest Pain Positive: Shortness Of Breath All Other Systems Reviewed And Are Negative: Yes Physical Exam - Summary Physical Exam Summary: VITAL SIGNS: Reviewed. GENERAL: Patient is a well-developed and nourished male who is lying comfortable in the stretcher. Patient is not in any acute respiratory distress. HEAD AND FACE: No signs of trauma. No ecchymosis, hematomas or skull depressions. No sinus tenderness. EYES: PERRLA, EOMI x 2, No injected conjunctiva, no nystagmus. EARS: Hearing grossly intact. Ear canals and tympanic membranes are within normal limits. MOUTH: Oropharynx within normal limits. NECK: Supple, trachea is midline, no adenopathy, no JVD, no carotid bruit, no c- spine tenderness, neck with full ROM. CHEST: Symmetric, no tenderness at palpation. LUNGS: Clear to auscultation bilaterally. No wheezing or crackles. CVS: Regular rate and rhythm, S1 and S2 present, no murmurs or gallops appreciated. ABDOMEN: Soft, non-tender. No signs of distention. No rebound, no guarding, and no masses palpated. Bowel sounds are normal. EXTREMITIES: FROM in all major joints, no edema, no cyanosis or clubbing. NEURO: Alert and oriented x 3. No acute neurological deficits. Speech is normal and follows commands. SKIN: Dry and warm. Triage Information Reviewed: Yes Vital Signs On Initial Exam: Initial Vitals Temp Pulse Resp BP Pulse Ox 97.7 F 83 20 134/93 95 01/17/19 09:14 01/17/19 09:14 01/17/19 09:14 01/17/19 09:14 01/17/19 09:14 Vital Signs Reviewed: Yes Diagnostics - Vital Signs Vital Signs Temp Pulse Resp BP Pulse Ox 01/17/19 09:26 79 114/76 93 01/17/19 09:24 80 97 01/17/19 09:14 97.7 F 83 20 134/93 95 - Laboratory Result Diagrams: 01/17/19 10:02 01/17/19 10:02 Lab Statement: Any lab studies that have been ordered have been reviewed, and results considered in the medical decision making process. - Radiology CXR Radiology Interpretation Completed By: Radiologist Summary of Radiographic Findings: CXR from 01/14/19 reveals, per radiologist, IMPRESSION: No active cardiopulmonary disease. ED physician has reviewed this report. CXR2 Radiology Interpretation Completed By: Radiologist Summary of Radiographic Findings: CXR reveals, per radiologist, IMPRESSION: NO ACTIVE CARDIOPULMONARY DISEASE. ED physician has reviewed this radiology report. - CT CT Chest CT Interpretation Completed By: Radiologist Summary of CT Findings: CT Chest from 01/14/19 reveals, per radiologist, IMPRESSION: 1. No CTA evidence of pulmonary embolism. 2. Otherwise unremarkable CTA of the chest. ED physician has reviewed this report. - EKG 0947 Cardiac Rate: NL - 78 bpm EKG Rhythm: Sinus Rhythm EKG Comparison: No Significant Change - 11/25/18 Summary of EKG Findings: EKG at 0947 reveals normal sinus rhythm 78 bpm, no ST elevations, normal axis. No significant change from 11/25/18. Re-Evaluation - Re-Evaluation First Eval Re-Evaluation Time: 12:58 Comment: I discussed all the findings and test results with the patient. Patient was instructed to return to the emergency room immediately if any of the symptoms return worsens. Plan of care was discussed with the patient and understands and agrees. Lung exam before discharge: CTA B/L. Good air exchange. No wheezing or crackles heard. CVS: S1 and S2 present. No murmurs appreciated. Patient is alert and oriented x 3. Patient is hemodynamically stable. Course/Dx - Course Assessment/Plan: This patient is a 58 year old M presenting to [facility] accompanied by with a chief complaint of intermittent SOB since 01/14/19. Pt had an episode of SOB today, took his medication, but still had SOB. In addition he felt sore in the chest region, and reports he felt something similar to a thump. Pt denies current CP. Pt reports orthopnea. Pt has a PMHx of Asthma and COPD. He previously had an episode on 01/14/19 and went over to [facility], and they kept him overnight, and he was given albuterol, and the SOB reduced, so they assumed that it was due to his asthma. Blood tests without any significant abnormality except for glucose of 339 and lactic acid of 2.2. Troponin 0.00. Urinalysis is negative for UTI. ABG shows a pH of 7.43, PCO2 30 , PO2 91, O2 sat is 99.3. In the ED course the patient was given IV fluids and insulin for hyperglycemia. I also believe that the patients lactic acid is elevated secondary to hyperglycemia. Patient does not have any signs of infection. At the patient was given insulin now the glucose is 199. The patient continues to be asymptomatic. He denies any chest pain. He reports the shortness of breath is only intermittent. The patient is not tachycardic or hypoxic therefore there is no pulmonary embolism. Since the patient does have any chest pain I do not think that the patient has an acute coronary syndrome. Therefore, the patient will be discharged home with follow-up with PCP. Patient reports that he has an appointment with Dr. Narayanan from pulmonology. I discussed all the findings and test results with the patient. Patient was instructed to return to the emergency room immediately if any of the symptoms return worsens. Plan of care was discussed with the patient and understands and agrees. All questions were answered at patient satisfaction. There were no further complaints or concerns. Lung exam before discharge: CTA B/ L. Good air exchange. No wheezing or crackles heard. CVS: S1 and S2 present. No murmurs appreciated. Patient is alert and oriented x 3. Patient is hemodynamically stable. Patient will be discharged home with follow up PCP in the next 2-3 days. Patient CTA on 01/14/19 at [facility] is negative for PE. - Diagnoses Provider Diagnoses: Dyspnea, Hyperglycemia Discharge - Sign-Out/Discharge Documenting (check all that apply): Patient Departure - Discharge Patient Received Moderate/Deep Sedation with Procedure: No - Discharge Plan Condition: Stable Disposition: HOME Patient Education Materials: Dyspnea (ED), Diabetic Hyperglycemia (ED) Referrals: Edwige Davis MD [Primary Care Provider] - 3 Days Additional Instructions: Follow up with your primary care provider within three days. RETURN TO THE ED FOR ANY WORSENING OR NEW SYMPTOMS. - Billing Disposition and Condition Condition: STABLE Disposition: Home - Attestation Statements Document Initiated by Deseanibkei: Yes Documenting Scribe: Sybil Mathias Provider For Whom Tito is Documenting (Include Credential): Dr. Jeremiah Conteh MD Scribe Attestation: Sybil Gil scribed for Dr. Jeremiah Conteh MD on 01/18/19 at 0815. Scribe Documentation Reviewed: Yes Provider Attestation: The documentation as recorded by the Sybil coon accurately reflects the service I personally performed and the decisions made by me, Dr. Jeremiah Conteh MD Status of Scribe Document: Viewed
[2019-01-17 10:24] LABS: ABS Basophils 0.1 10^3/ul (0-0.2); ABS Eosinophils 0.1 10^3/ul (0-0.6); ABS Lymphocytes 1.9 10^3/ul (1.0-4.8); ABS Monocytes 0.7 10^3/ul (0-0.8); ABS Neutrophils 7.1 10^3/ul (1.5-7.7); Eosinophil % 1.4 %; Hematocrit 44 % (42-52); Hemoglobin 14.9 g/dL (14.0-18.0); Mean Corpuscular HGB Conc 34 g/dL (31-36); Mean Corpuscular Hemoglobin 30 pg (27-31); Mean Corpuscular Volume 87 fL (80-94); Mean Platelet Volume 9.2 fL (7.4-10.4); Nucleated Red Blood Cells % 0.1; Platelet Count 200 10^3/uL (150-450); Red Blood Count 5.01 10^6 /uL (4.18-5.48); Red Cell Distribution Width 14 % (10-15); White Blood Count 9.9 10^3/uL (3.5-10.8)
[2019-01-17 10:41] LABS: Albumin/Globulin Ratio 1.4 (1-3); BUN/Creatinine Ratio 18.1 (8-20); C Reactive Protein 5.94 mg/L (<8.01); Calcium 9.1 mg/dL (8.6-10.3); EGFR African American 99.7 (>60); EGFR Non-African American 82.4 (>60); Globulin 2.9 g/dL (2-4); Potassium 4.2 mmol/L (3.5-5.0); Total Protein 6.9 g/dL (6.4-8.9)
[2019-01-17 10:44] LABS: CKMB ng/mL 1.6 ng/mL (0.6-6.3)
[2019-01-17 10:58] LABS: Urine Appearance Clear; Urine Bilirubin Negative (Negative); Urine Blood Negative (Negative); Urine Color Yellow; Urine Glucose 3+(>=500 mg/dL) (Negative); Urine Ketones Trace (Negative); Urine Nitrite Negative (Negative); Urine Protein Negative (Negative); Urine Specific Gravity 1.022 (1.010-1.030); Urine Urobilinogen Negative (Negative)
[2019-01-17] MEDS ORDERED: Insulin REGULAR(*) 1 UNITS UNIT IV PUSH ONE (11:41)
[2019-01-17] MEDS ORDERED: NS 0.9% 1000 ML** 1,000 ML IV ONE (11:41)
[2019-01-17 14:05] VITALS: BP 140/84
== END 2019-01-17 14:04 | disposition home or self-care (01) ==
LOC: ED 09:11
DX: R06.00 Dyspnea, unspecified (principal); E11.65 Type 2 diabetes mellitus with hyperglycemia; I10 Essential (primary) hypertension; J44.9 Chronic obstructive pulmonary disease, unspecified; Z88.0 Allergy status to penicillin; Z87.891 Personal history of nicotine dependence
CPT/HCPCS: 36415; 71046; 80053; 81003; 82550; 82553; 82803; 83605; 83880; 84484; 85025; 85730; 86140; 87040; 93005; 96361; 96374; 96375; 99283

== ENCOUNTER 2019-04-04 09:50 | Emergency (ER) | payer OTHER ==
--- OUTSIDE RECORDS SUMMARY | 2019-04-04 10:00 | XMS REPORT | Summary of Care ---
:1960 Author Organization [facility] Address [address] [place] [address] Care Team Providers Name Role Phone Edwige Davis MD Primary Care Provider Reason for Visit Reason Comments Follow Up to lab results Encounter Details Date Type Department Care Team Description 03/07/2019 Office Visit Jaki Davis, Type 2 diabetes mellitus without complication, without long-term current use of insulin (HCC) (Primary Dx ); Practice MD Edwige Flu vaccine need; [address] [facility] [address] [facility] Essential hypertension; [place] [address] [place] [address] Non-cardiac chest pain; [phone] Mixed hyperlipidemia Allergies Active Allergy Reactions Severity Noted Date Comments Penicillins Rash 06/01/2015 documented as of this encounter (statuses as of 03/07/2019) Medications Medication Sig Dispensed Refills Start Date End Date Status Tiotropium [place] Take 2 Each by 1 Inhaler 1 11/06/2017 Active Monohydrate (SPIRIVA inhalation RESPIMAT) 2.5 DAILY AT 1400. MCG/ACT Inhalation Aero SolnIndications: SOB (shortness of breath) meclizine (ANTIVERT) Take 1 Tab by 90 Tab 0 10/25/2018 Active 25 MG Oral Tab mouth THREE TIMES DAILY NEEDED (dizziness). metFORMIN Take 2 Tabs by 120 Tab 1 01/03/2019 Active (GLUCOPHAGE) 500 MG mouth TWICE Oral Tab DAILY. metoprolol Take 1 Tab by 60 Tab 5 02/04/2019 Active (LOPRESSOR) 25 MG mouth TWICE Oral Tab DAILY. rivaroxaban Take 1 Tab by 30 Tab 5 02/04/2019 Active (XARELTO) 20 MG Oral mouth DAILY. Tab oxybutynin Take 0.5 Tabs 90 Tab 2 02/04/2019 Active (DITROPAN) 5 MG Oral by mouth THREE Tab TIMES DAILY. Glucose Blood In 1 Strip by In 180 Strip 3 02/04/2019 Active Vitro Strip Vitro route TWICE DAILY. glipiZIDE Take 1 Tab by 60 Tab 5 02/04/2019 Active (GLUCOTROL) 10 MG mouth TWICE Oral Tab DAILY. Blood Glucose 1 Each by Does 1 Each 0 02/04/2019 Active Monitoring Suppl not apply route (FREESTYLE LITE) DIRECTED. Does not apply DX: E11.9 MAR: Device 10/25/17 atorvastatin Take 1 Tab by 30 Tab 5 02/04/2019 Active (LIPITOR) 40 MG Oral mouth DAILY. Tab albuterol HFA Take 2 Puffs by 1 Inhaler 5 02/04/2019 Active (VENTOLIN) 108 (90 inhalation Base) MCG/ACT EVERY FOUR Inhalation Aero Soln HOURS NEEDED (wheezing). albuterol 3 mL by 50 vial 5 02/04/2019 Active (PROVENTIL, Inhalation-SVN VENTOLIN) (2.5 route EVERY MG/3ML) 0.083% FOUR HOURS Inhalation Nebu Soln NEEDED (cough, shortness of breath). fluticasone-salmeter Take 1 INHL by 60 Each 3 02/04/2019 Active ol diskus (ADVAIR inhalation DISKUS) 500-50 TWICE DAILY. MCG/DOSE Inhalation AEROSOL POWDER, BREATH ACTIVATED cyclobenzaprine Take 5 mg by 0 02/15/2019 Active (FLEXERIL) 5 MG Oral mouth THREE Tab TIMES DAILY. polyethylene glycol Take 4,000 mL 4000 mL 0 02/21/2019 Active & electrolytes by mouth (COLYTE, GOLYTELY) DIRECTED for 1 236 g Oral Recon dose. Soln sitagliptin Take 1 Tab by 30 Tab 1 03/07/2019 Active (JANUVIA) 50 MG Oral mouth DAILY. Tab sitagliptin Take 1 Tab by 30 Tab 0 01/15/2019 Discontinued (JANUVIA) 50 MG Oral mouth DAILY. 9 Tab documented as of this encounter (statuses as of 03/07/2019) Active Problems Problem Noted Date BMI 40.0-44.9, adult 01/03/2019 Obesity (BMI 35.0-39.9 without comorbidity) 04/27/2018 Other pulmonary embolism with acute cor pulmonale 04/27/2018 Type 2 diabetes mellitus without complication, without long-term current 12/21 use of insulin Acute pulmonary embolism 03/14/2016 Obesity (BMI 35.0-39.9 without comorbidity) 06/22/2015 Tobacco abuse 06/22/2015 MICHELLE on CPAP COPD (chronic obstructive pulmonary disease) documented as of this encounter (statuses as of 03/07/2019) Resolved Problems Problem Noted Date Resolved Date Acute prostatitis 06/23/2015 09/11/2017 Sepsis due to Escherichia coli 06/22/2015 09/11/2017 Pyelonephritis 06/22/2015 09/11/2017 documented as of this encounter (statuses as of 03/07/2019) Immunizations Name Administration Dates Next Due Influenza (IM) Preservative Free 03/07/2019, 03/22/2018 PNEUMOCOCCAL POLYSACCHARIDE VACCINE 11/07/2018, 02/29/2016 documented as of this encounter Social History Tobacco Use Types Packs/Day Years Used Date Former Smoker Cigarettes 0.1 35 Quit: 06/17/2015 Smokeless Tobacco: Never Used Comments: 10 packs every other month Alcohol Use Drinks/Week oz/Week Comments No Sex Assigned at Date Recorded Not on file Job Start Date Occupation Industry Not on file Not on file Not on file Travel History Travel Start Travel End No recent travel history available. documented as of this encounter Last Filed Vital Signs Vital Sign Reading Time Taken Comments Blood Pressure 130/70 03/07/2019 11:31 AM EDT Pulse 94 03/07/2019 11:31 AM EDT Temperature 37.2 03/07/2019 11:31 AM C (99 EDT F) Respiratory Rate - - Oxygen Saturation 97% 03/07/2019 11:31 AM EDT Inhaled Oxygen Concentration - - Weight 131.6 kg (290 lb 3.2 oz) 03/07/2019 11:31 AM EDT Height 185.4 cm (6' 1") 03/07/2019 11:31 AM EDT Body Mass Index 38.29 03/07/2019 11:31 AM EDT documented in this encounter Patient Instructions Patient InstructionsEdwige Davis MD - 03/07/2019 11:40 AM EDT1. Start Januvia 50 mg once a day 2. Follow up in 1 month with sugar diary 3. Schedule non fasting blood tests in 3 months documented in this encounter Progress Notes Edwige Davis MD - 03/07/2019 11:40 AM EDT Patient: Ramírez Fink Date of Service: 03/07/2019 Subjective: Ramírez Fink is a 58-y.o. male who presents for Chief Complaint Patient presents with Follow Up to lab results Diabetic Review of Systems - medication compliance: compliant all of the time, diabetic diet compliance: compliant most of the time, home glucose monitoring: is performed regularly, fasting values range 130-150, nonfasting values range 160-170, further diabetic ROS: no numbness, tingling or pain in extremities. Also seen at [facility] ER on 02/28/19 with complains of chest pain, SOB Stopped all his medications for 5 days prior to colonoscopy including inhalers Evaluation: negative Troponin, negative CT of the chest for PE Patient was discharged home Back on his medications No complains of chest pains, SOB Past Medical History: Diagnosis Date COPD (chronic obstructive pulmonary disease) ([facility]) DM (diabetes mellitus) ([facility]) High cholesterol HTN (hypertension) Hypertension MICHELLE on CPAP Pulmonary embolism ([facility]) 03/25, 07/26 Type 2 diabetes mellitus without complication, without long-term current use of insulin ([facility])12/21/2017 Outpatient Medications as of 03/07/2019 Medication Sig Dispense Refill albuterol (PROVENTIL, VENTOLIN) (2.5 MG/3ML) 0.083% Inhalation Nebu Soln 3 mL by Inhalation-SVN route EVERY FOUR HOURS NEEDED (cough, shortness of breath). 50 vial 5 albuterol HFA (VENTOLIN) 108 (90 Base) MCG/ACT Inhalation Aero Soln Take 2 Puffs by inhalation EVERY FOUR HOURS NEEDED (wheezing). 1 Inhaler 5 atorvastatin (LIPITOR) 40 MG Oral Tab Take 1 Tab by mouth DAILY. 30 Tab 5 Blood Glucose Monitoring Suppl (FREESTYLE LITE) Does not apply Device 1 Each by Does not apply route DIRECTED. DX: E11.9 MAR: 10/25/17 1 Each 0 cyclobenzaprine (FLEXERIL) 5 MG Oral Tab Take 5 mg by mouth THREE TIMES DAILY. fluticasone-salmeterol diskus (ADVAIR DISKUS) 500-50 MCG/DOSE Inhalation AEROSOL POWDER, BREATH ACTIVATED Take 1 INHL by inhalation TWICE DAILY. 60 Each 3 glipiZIDE (GLUCOTROL) 10 MG Oral Tab Take 1 Tab by mouth TWICE DAILY. 60 Tab 5 Glucose Blood In Vitro Strip 1 Strip by In Vitro route TWICE DAILY. 180 Strip 3 meclizine (ANTIVERT) 25 MG Oral Tab Take 1 Tab by mouth THREE TIMES DAILY NEEDED (dizziness). 90 Tab 0 metFORMIN (GLUCOPHAGE) 500 MG Oral Tab Take 2 Tabs by mouth TWICE DAILY. 120 Tab 1 metoprolol (LOPRESSOR) 25 MG Oral Tab Take 1 Tab by mouth TWICE DAILY. 60 Tab 5 oxybutynin (DITROPAN) 5 MG Oral Tab Take 0.5 Tabs by mouth THREE TIMES DAILY. 90 Tab 2 polyethylene glycol & electrolytes (COLYTE, GOLYTELY) 236 g Oral Recon Soln Take 4,000 mLby mouth DIRECTED for 1 dose. 4000 mL 0 rivaroxaban (XARELTO) 20 MG Oral Tab Take 1 Tab by mouth DAILY. 30 Tab 5 Tiotropium [place] Monohydrate (SPIRIVA RESPIMAT) 2.5 MCG/ACT Inhalation Aero Soln Take 2 Each by inhalation DAILY AT 1400. 1 Inhaler 1 No current facility-administered medications on file as of 03/07/2019. Allergies Allergen Reactions Penicillins Rash Review of Systems: All remaining review of systems was negative. Objective: BP 130/70 (BP Location: Left arm, Patient Position: Sitting) Pulse 94 Temp 99 F (37.2 C) Ht 6' 1" (1.854 m) Wt 290 lb 3.2 oz (131.6 kg) SpO2 97% BMI 38.29 kg/m2 GENERAL: alert, no distress THROAT: lips, mucosa, and tongue normal: teeth and gums normal NECK: supple, symmetrical, trachea midline and thyroid: not enlarged, symmetric, no tenderness/mass/nodules LUNGS: clear to auscultation bilaterally HEART: regular rate and rhythm, S1, S2 normal, no murmur, click, rub or gallop Examination of the feet reveals warm, good capillary refill, normal DP and PT pulses and normal sensory exam. HGA1C - improved, still elevated, CMP - elevated sugar, FLP - elevated TG, low HDL Component Latest Ref Rng & Units 02/22/2019 02/22/2019 02/22/2019 7:48 AM 7:48 AM 7:48 AM Sodium 134 - 145 mmol/L 139 Potassium 3.5 - 5.1 mmol/L 4.2 Chloride 98 - 107 mmol/L 103 CO2 22 - 30 mmol/L 22 Calcium 8.3 - 10.1 mg/dl 9.2 Albumin 3.5 - 5.0 g/dl 4.5 BUN 9 - 20 mg/dl 15 Creatinine 0.8 - 1.5 mg/dl 0.9 Glucose (Lab) 70 - 99 mg/dl 158 (H) Protein,Total 6.3 - 8.2 g/dl 7.6 Total Bilirubin 0.0 - 1.1 MG/DL 1.4 (H) AST 17 - 59 U/L 39 ALT 21 - 72 U/L 44 ALKALINE PHOSPHATASE 40 - 150 U/L 57 eGFR See Interpretation Below ml/min/1.73ml Sq >60 BUN/Creatinine Ratio 6 - 22 RATIO 17 Anion Gap 3 - 11 mmol/L 14 (H) A/G Ratio 0.8 - 2.0 ratio 1.5 Cholestrol <200 mg/dl 117 HDL >40 mg/dl 24 (L) Triglycerides <150 mg/dl 217 (H) LDL Cholesterol <100 MG/DL 50 Cholesterol / HDL Ratio RATIO 4.9 LDL / HDL Ratio 2.1 Non-HDL Cholesterol 0 - 130 MG/DL 93 Glycohemoglobin - POCT <=5.6 % 8.1 (H) I have recommended the following steps for improving diabetic care and outcome to him: low cholesterol diet, weight control and daily exercise discussed and glycohemoglobin and other lab monitoring discussed. 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 ICD-9-CM ICD-10-CM 1. Type 2 diabetes mellitus without complication, without long-term current use of insulin (HCC) 250.00 E11.9 COMPREHENSIVE METABOLIC PANEL GLYCOHEMOGLOBIN A1C 2. Flu vaccine need V04.81 Z23 MI FLU VACCINE PRES FREE 3YRS+ ADULT (DX Z23) 3. Essential hypertension 401.9 I10 4. Non-cardiac chest pain 786.59 R07.89 5. Mixed hyperlipidemia 272.2 E78.2 Patient Instructions 1. Start Januvia 50 mg once a day 2. Follow up in 1 month with sugar diary 3. Schedule non fasting blood tests in 3 months Author: Edwige Davis MD documented in this encounter Plan of Treatment Date Type Specialty Care Team Description 04/08/2019 Office Visit Family Practice Edwige Davis MD [address] [place] [address] [phone] 07/09/2019 Ocular Visit Optometry Bubba Bahena, OD [address] [place] [address] Name Type Priority Associated Diagnoses Order Schedule COMPREHENSIVE METABOLIC Lab Routine Type 2 diabetes Expected: 03/07/2019 PANEL mellitus without (Approximate), complication, without Expires: 03/07/2020 long-term current use of insulin (HCC) GLYCOHEMOGLOBIN A1C Lab Routine Type 2 diabetes Expected: 03/07/2019 mellitus without (Approximate), complication, without Expires: 03/07/2020 long-term current use of insulin (HCC) Health Maintenance Due Date Last Done Comments ZOSTER IMMUNIZATION SERIES 2010 (1 of 2) INFLUENZA VACCINE (#1) 2019 03/22/2018 FOOT EXAM 03/22/2019 03/22/2018, 03/22/2018 DEPRESSION SCREENING 04/12/2019 04/12/2018 HEMOGLOBIN A1C 05/25/2019 02/22/2019, 10/18/2018, 07/07/2018, Additional history exists URINE MICROALBUMIN 09/21/2019 09/20/2018, 09/15/2017 LIPID DISORDER SCREENING 02/23/2020 02/22/2019, 02/04/2019, 07/07/2018, Additional history exists Diabetic Eye Exam 07/05/2020 07/05/2018, 07/05/2018 COLONOSCOPY SCREENING 02/25/2022 02/25/2019, 02/25/2019, 02/24/2016, Additional history exists PNEUMOCOCCAL 0-64 YRS Completed 11/07/2018, 02/29/2016 HPV IMMUNIZATION SERIES Aged Out No longer eligible based on patient's age to complete this topic MENINGOCOCCAL VACCINE IMM Aged Out No longer eligible based on patient's age to complete this topic documented as of this encounter Goals Goal Patient Goal Associated Recent Patient-Stated? Author Type Problems Progress Blood Pressure Blood Pressure 130/70 Sarah Kapoor, < 140/90 (03/07/2019 Milly Nieto, 11:31 AM EDT) AHRRY Note: This is an individualized treatment (blood pressure) goal for Ramírez Fink: Displayed above (on the left) is your goal for blood pressure control. Your most recent blood pressure is also shown above, on the right. You should try to achieve blood pressures that are lower than your goal listed above (on the left). Weight increase vs. 18 CHF 0 (03/07/2019 11:31 AM EDT) Milly Hood RPA-C mo min (lbs) < 5 Note: This is an individualized treatment (congestive heart failure, CHF) goal for Ramírez Fink: Displayed above (on the right) is how many pounds you are in excess of your lowest weight over the past 18 months. Note that lower numbers are better. Excessive weight gain often indicates fluid reten tion and worsening heart failure. You should contact your doctor immediately if the above number is too high (above your goal, the number on the left). Glycohemoglobin A1c < 7.0 Diabetes 8.1 (02/22/2019 7:48 Edwige Mendez, AM EDT) Note: This is an individualized treatment (diabetes control, HgbA1C) goal for Ramírez Fink: Displayed above is your progress towards your HgbA1C goal. Your goal is shown above (on the left); your most recent HgbA1C is shown on the right. Note that lower numbers are better. Work with your Fern Cutter General Milly Hood RPA-C Note: This is an individualized treatment (frequent ED use) goal for Ramírez Fink: Please work with your Fern Cutter, who will assist you in meeting your goals of care. Weight loss vs. 18 mo Lifestyle 14.8 (03/07/2019 11:31 AM Edwige Mendez MD max (lbs) >= 10 EDT) Note: This is an individualized lifestyle goal for Ramírez Fink: Your body mass index (BMI) is more than 30. You should lose weight. A reasonable starting goal is to lose 10 pounds. Displayed above is how many pounds you have lost thus far towards your 10 pound weight loss goal. Keep immunizations current Lifestyle Edwige Mendez MD Note: This is an individualized lifestyle goal for Ramírez Fink: Please be sure to keep up-to-date on recommended immunizations. For example, this would include a yearly influenza vaccine. Immunization status can be seen by looking at the Health Maintenance sections of your [facility], Plan of Care, and any After Visit Summaries. Consume a [id number] diet Lifestyle Milly Hood RPA-C Note: This is an individualized lifestyle goal for Ramírez Fink: Please do not add additional salt to your food. Additional salt may lead to fluid retention and worsen your congestive heart failure. Regular appointments with primary care Lifestyle Milly Hood RPA-C provider (PCP) Note: This is an individualized lifestyle goal for Ramírez Fink: Please schedule regular visits with your primary care provider (PCP). Care provided in your PCP's office can help reduce your need for additional trips to the Emergency Room. Take all prescribed medications as Self-management Edwige Mendez MD directed Note: This is an individualized self-management goal for Ramírez Fink: Please take all prescribed medications as directed. 1. Do not skip doses. If you cannot afford your medications, talk with your doctor. 2. Use a pill reminder system such as a pill box if needed. Your pharmacist can help you with this. 3. Contact your Pharmacy 5 days before your medication runs out. If you cannot take your medications for any reasons, talk with your doctor. 4. Please bring all of your medication bottles and inhalers (or a list of all your medications/inhalers) with you to every visit. Potential barriers to meeting all of your care plan goals will continue to be addressed on an ongoing basis. Check your weight daily Self-management Milly Hood RPA-C Note: This is an individualized self-management goal for Ramírez Fink: Please check your weight daily. Refer to the accompanying CHF treatment goal and call your doctor immediately for further instructions on how to respond to unexpected weight gain. documented as of this encounter Results Not on filedocumented in this encounter Visit Diagnoses Diagnosis Type 2 diabetes mellitus without complication, without long-term current use of insulin (HCC) - Primary Flu vaccine need Need for prophylactic vaccination and inoculation against influenza Essential hypertension Unspecified essential hypertension Non-cardiac chest pain Other chest pain Mixed hyperlipidemia documented in this encounter Guarantor Name Account Type Relation to Date of Phone Billing Patient Address Ramírez Fink Personal/Family 1960 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
--- OUTSIDE RECORDS SUMMARY | 2019-04-04 10:00 | XMS REPORT | Summary of Care ---
:1960 Author Organization [facility] Address [address] [place] [address] Care Team Providers Name Role Phone Edwige Davis MD Primary Care Provider Reason for Visit Reason Comments Diarrhea Nausea Encounter Details Date Type Department Care Team Description 03/22/2019 Office Visit [facility] Douglas Martin NP Diarrhea, unspecified type (Primary Dx); [address] [place] Nausea and vomiting, intractability of vomiting not specified, [place] [address] [address] [phone] [place] [address] [phone] Allergies Active Allergy Reactions Severity Noted Date Comments Penicillins Rash 06/01/2015 documented as of this encounter (statuses as of 03/22/2019) Medications Medication Sig Dispensed Refills Start End Date Status Date Tiotropium [place] Take 2 Each by 1 Inhaler 1 Active Monohydrate (SPIRIVA inhalation 8 RESPIMAT) 2.5 DAILY AT 1400. MCG/ACT Inhalation Aero SolnIndications: SOB (shortness of breath) meclizine (ANTIVERT) Take 1 Tab by 90 Tab 0 Active 25 MG Oral Tab mouth THREE 9 TIMES DAILY NEEDED (dizziness). metFORMIN Take 2 Tabs by 120 Tab 1 Active (GLUCOPHAGE) 500 MG mouth TWICE 9 Oral Tab DAILY. metoprolol Take 1 Tab by 60 Tab 5 Active (LOPRESSOR) 25 MG mouth TWICE 9 Oral Tab DAILY. rivaroxaban Take 1 Tab by 30 Tab 5 Active (XARELTO) 20 MG Oral mouth DAILY. 9 Tab oxybutynin Take 0.5 Tabs 90 Tab 2 Active (DITROPAN) 5 MG Oral by mouth THREE 9 Tab TIMES DAILY. Glucose Blood In 1 Strip by In 180 Strip 3 Active Vitro Strip Vitro route 9 TWICE DAILY. glipiZIDE Take 1 Tab by 60 Tab 5 Active (GLUCOTROL) 10 MG mouth TWICE 9 Oral Tab DAILY. Blood Glucose 1 Each by Does 1 Each 0 Active Monitoring Suppl not apply 9 (FREESTYLE LITE) route Does not apply DIRECTED. DX: Device E11.9 MAR: 10/25/17 atorvastatin Take 1 Tab by 30 Tab 5 Active (LIPITOR) 40 MG Oral mouth DAILY. 9 Tab albuterol HFA Take 2 Puffs 1 Inhaler 5 Active (VENTOLIN) 108 (90 by inhalation 9 Base) MCG/ACT EVERY FOUR Inhalation Aero Soln HOURS NEEDED (wheezing). albuterol 3 mL by 50 vial 5 Active (PROVENTIL, Inhalation-SVN 9 VENTOLIN) (2.5 route EVERY MG/3ML) 0.083% FOUR HOURS Inhalation Nebu Soln NEEDED (cough, shortness of breath). fluticasone-salmeter Take 1 INHL by 60 Each 3 Active ol diskus (ADVAIR inhalation 9 DISKUS) 500-50 TWICE DAILY. MCG/DOSE Inhalation AEROSOL POWDER, BREATH ACTIVATED cyclobenzaprine Take 5 mg by 0 Active (FLEXERIL) 5 MG Oral mouth THREE 9 Tab TIMES DAILY. ondansetron (ZOFRAN Take 1 Tab by 9 Tab 0 03/24/20 Active ODT) 4 MG Oral mouth EVERY 9 19 TABLET SIX HOURS DISPERSIBLEIndicatio NEEDED ns: Nausea and (nausea) for vomiting, up to 2 days. intractability of vomiting not specified, unspecified vomiting type polyethylene glycol Take 4,000 mL 4000 mL 0 03/22/20 Discontinued (No & electrolytes by mouth 9 19 longer (COLYTE, GOLYTELY) DIRECTED for 1 clinically 236 g Oral Recon dose. indicated) Soln sitagliptin Take 1 Tab by 30 Tab 1 03/22/20 Discontinued (No (JANUVIA) 50 MG Oral mouth DAILY. 9 19 longer Tab clinically indicated) documented as of this encounter (statuses as of 03/22/2019) Active Problems Problem Noted Date BMI 40.0-44.9, [...] as of this encounter (statuses as of 03/22/2019) Resolved Problems Problem Noted Date Resolved Date Acute prostatitis 06/23/2015 09/11/2017 Sepsis due to Escherichia coli 06/22/2015 09/11/2017 Pyelonephritis 06/22/2015 09/11/2017 documented as of this encounter (statuses as of 03/22/2019) Immunizations Name Administration Dates Next Due Influenza [...] Sign Reading Time Taken Comments Blood Pressure 136/88 03/22/2019 9:55 AM EDT Pulse 77 03/22/2019 9:55 AM EDT Temperature 36.8 03/22/2019 9:55 AM C (98.2 EDT F) Respiratory Rate 16 03/22/2019 9:55 AM EDT Oxygen Saturation 97% 03/22/2019 9:55 AM EDT Inhaled Oxygen Concentration - - Weight 134.3 kg (296 lb 1.6 oz) 03/22/2019 9:55 AM EDT Height 182.9 cm (6') 03/22/2019 9:55 AM EDT Body Mass Index 40.16 03/22/2019 9:55 AM EDT documented in this encounter Patient Instructions Patient InstructionsDouglas Martin NP - 03/22/2019 9:50 AM EDT I sent in zofran to help with nausea Sip on fluids throughout the day to prevent dehydration Follow up with your primary care provider if not improving in 3-4 days, sooner if worsen Continuity of care: Examination and treatment received today was given on an acute basis only, and is not a substitute for complete medical care. It is important that a relationship be established with a primary care provider. No ongoing doctor-patient relationship was established by this visit today. Gastroenteritis WHAT YOU NEED TO KNOW: Gastroenteritis, or stomach flu, is an infection of the stomach and intestines. DISCHARGE INSTRUCTIONS: Call 911 for any of the following: You have trouble breathing or a very fast pulse. Return to the emergency department if: You see blood in your diarrhea. You cannot stop vomiting. You have not urinated for 12 hours. You feel like you are going to faint. Contact your healthcare provider if: You have a fever. You continue to vomit or have diarrhea, even after treatment. You see worms in your diarrhea. Your mouth or eyes are dry. You are not urinating as much or as often. You have questions or concerns about your condition or care. Medicines: Medicines may be given to stop vomiting or diarrhea, decrease abdominal cramps, or treat an infection. Take your medicine as directed. Call your healthcare provider if you think your medicine is not helping or if you have side effects. Tell him if you are allergic to any medicine. Keep a list of the medicines, vitamins, and herbs you take. Include the amounts, and when and why you take them. Bring the list or the pill bottles to follow-up visits. Carry your medicine list with you in case of an emergency. Manage your symptoms: Drink liquids as directed. Ask your healthcare provider how much liquid to drink each day, andwhich liquids are best for you. You may also need to drink an oral rehydration solution (ORS). An ORS has the right amounts of sugar , salt, and minerals in water to replace body fluids. Eat bland foods. When you feel hungry, begin eating soft, bland foods. Examples are bananas, clear soup, potatoes, and applesauce. Do not have dairy products, alcohol, sugary drinks, or drinks with caffeine until you feel better. Rest as much as possible. Slowly start to do more each day when you begin to feel better. Prevent the spread of gastroenteritis: Gastroenteritis can spread easily. Keep yourself, your family, and your surroundings clean to help prevent the spread of gastroenteritis: Wash your hands often. Use soap and water. Wash your hands after you use the bathroom, change a child's diapers, or sneeze. Wash your hands before you prepare or eat food. Clean surfaces and do laundry often. Wash your clothes and towels separately from the rest of the laundry. Clean surfaces in your home with antibacterial truck car and bus cleaner or bleach. Clean food thoroughly and cook safely. Wash raw vegetables before you cook. Cook meat, fish, and eggs fully. Do not use the same dishes for raw meat as you do for other foods. Refrigerate any leftover food immediately. Be aware when you camp or travel. Drink only clean water. Do not drink from cruz or lakes unless you purify or boil the water first. When you travel , drink bottled water and do not add ice. Do not eat fruit that has not been peeled. Do not eat raw fish or meat that is not fully cooked. Follow up with your healthcare provider as directed: Write down your questions so you remember to ask them during your visits. 2016 [employer]. Information is for End User's use only and may not be sold, redistributed or otherwise used for commercial purposes. All illustrations and images included in CareNotes are the copyrighted property of [employer], [employer]. or [employer]. The above information is an sanitary aide only. It is not intended as medical advice for individual conditions or treatments. Talk to your doctor, nurse or pharmacist before following any medical regimen to see if it is safe and effective for you. documented in this encounter Progress Notes Douglas Martin NP - 03/22/2019 9:50 AM EDT PATIENT: Ramírez Fink : 1960 DATE OF SERVICE: 03/22/2019 CHIEF COMPLAINT: Chief Complaint Patient presents with Diarrhea Nausea Subjective HISTORY OF PRESENT ILLNESS: Ramírez Fink is a 59-y.o. male. HPI Presents to the walk in clinic for c/o N/V/D x1 day. States he has been feeling fine the last weekno issues. States he ate some Jumbalya soup last night from restaurant. States it tasted "real good." He states he woke up went to work and states he had a wave of nausea come over and states he has thrown up x2 and diarrhea x2 this morning and had to leave work. Denies fever, abdominal pain, blood or mucous in the stool. He does not have his appendix. He denies hx diverticulitis. States someone he works with the other day had similar sx. Patient is diabetic he reports that his home BS have been running 120-130's fasting at home. Past Medical History: Diagnosis Date COPD (chronic obstructive pulmonary disease) ([facility]) DM (diabetes mellitus) ([facility]) High cholesterol HTN (hypertension) Hypertension MICHELLE on CPAP Pulmonary embolism ([facility]) 03/25, 07/26 Type 2 diabetes mellitus without complication, without long-term current use of insulin ([facility])12/21/2017 Family History Problem Relation Age of Onset Diabetes Daughter Heart Sister Current Outpatient Medications Medication Sig albuterol (PROVENTIL, VENTOLIN) (2.5 MG/3ML) 0.083% Inhalation Nebu Soln 3 mL by Inhalation-SVN route EVERY FOUR HOURS NEEDED (cough, shortness of breath). albuterol HFA (VENTOLIN) 108 (90 Base) MCG/ACT Inhalation Aero Soln Take 2 Puffs by inhalation EVERY FOUR HOURS NEEDED (wheezing). atorvastatin (LIPITOR) 40 MG Oral Tab Take 1 Tab by mouth DAILY. Blood Glucose Monitoring Suppl (FREESTYLE LITE) Does not apply Device 1 Each by Does not apply route DIRECTED. DX: E11.9 MAR: 10/25/17 cyclobenzaprine (FLEXERIL) 5 MG Oral Tab Take 5 mg by mouth THREE TIMES DAILY. fluticasone-salmeterol diskus (ADVAIR DISKUS) 500-50 MCG/DOSE Inhalation AEROSOL POWDER, BREATH ACTIVATED Take 1 INHL by inhalation TWICE DAILY. glipiZIDE (GLUCOTROL) 10 MG Oral Tab Take 1 Tab by mouth TWICE DAILY. Glucose Blood In Vitro Strip 1 Strip by In Vitro route TWICE DAILY. meclizine (ANTIVERT) 25 MG Oral Tab Take 1 Tab by mouth THREE TIMES DAILY NEEDED (dizziness). metFORMIN (GLUCOPHAGE) 500 MG Oral Tab Take 2 Tabs by mouth TWICE DAILY. metoprolol (LOPRESSOR) 25 MG Oral Tab Take 1 Tab by mouth TWICE DAILY. ondansetron (ZOFRAN ODT) 4 MG Oral TABLET DISPERSIBLE Take 1 Tab by mouth EVERY SIX HOURS NEEDED (nausea) for up to 2 days. oxybutynin (DITROPAN) 5 MG Oral Tab Take 0.5 Tabs by mouth THREE TIMES DAILY. rivaroxaban (XARELTO) 20 MG Oral Tab Take 1 Tab by mouth DAILY. Tiotropium [place] Monohydrate (SPIRIVA RESPIMAT) 2.5 MCG/ACT Inhalation Aero Soln Take 2 Each by inhalation DAILY AT 1400. No current facility-administered medications for this visit. Allergies Allergen Reactions Penicillins Rash Social History Socioeconomic History Marital status: Spouse name: Not on file Number of children: Not on file Years of education: Not on file Highest education level: Not on file Occupational History Not on file Social Needs Financial resource strain: Not on file Food insecurity: Worry: Not on file Inability: Not on file Transportation needs: Medical: Not on file Non-medical: Not on file Tobacco Use Smoking status: Former Smoker Packs/day: 0.10 Years: 35.00 Pack years: 3.50 Types: Cigarettes Last attempt to quit: 06/17/2015 Years since quittin.7 Smokeless tobacco: Never Used Tobacco comment: 10 packs every other month Substance and Sexual Activity Alcohol use: No Drug use: No Sexual activity: Yes Partners: Female Lifestyle Physical activity: Days per week: Not on file Minutes per session: Not on file Stress: Not on file Relationships Social connections: Talks on phone: Not on file Gets together: Not on file Attends gnosticist service: Not on file Active member of club or organization: Not on file Attends meetings of clubs or organizations: Not on file Relationship status: Not on file Intimate partner violence: Fear of current or ex partner: Not on file Emotionally abused: Not on file Physically abused: Not on file Forced sexual activity: Not on file Other Topics Concern Back Care Not Asked Bike Helmet Not Asked Blood Transfusions Not Asked Caffeine Concern Not Asked Exercise Not Asked Hobby Hazards Not Asked International Travel Not Asked Service Not Asked Occupational Exposure Not Asked Seat Belt Not Asked Self-Exams Not Asked Sleep Concern Not Asked Special Diet Not Asked Stress Concern Not Asked Weight Concern Not Asked Social History Narrative 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 REVIEW OF SYSTEMS: ROS Objective PHYSICAL EXAM: VITALS: BP 136/88 (BP Location: Left arm, Patient Position: Sitting) | Pulse 77 | Temp 98.2 F(36.8 C) (Tympanic) | Resp 16 | Ht 6' (1.829 m) | Wt 296 lb 1.6 oz (134.3 kg) | SpO2 97% | BMI 40.16 kg/m Body mass index is 40.16 kg/m. Physical Exam Constitutional: He is oriented to person, place, and time. He appears well- developed. Eyes: No scleral icterus. Pulmonary/Chest: No respiratory distress. Abdominal: Soft. Bowel sounds are normal. He exhibits no distension and no mass. There is no hepatosplenomegaly. There is no tenderness. There is no rigidity, no rebound and no guarding. Abdominal exam limited d/t abdominal girth. Neurological: He is alert and oriented to person, place, and time. Skin: Skin is warm. He is not diaphoretic. No pallor. Vitals reviewed. ASSESSMENT / IMPRESSION: ICD-9-CM ICD-10-CM 1. Diarrhea, unspecified type 787.91 R19.7 2. Nausea and vomiting, intractability of vomiting not specified, unspecified vomiting type 787.01 R11.2 ondansetron (ZOFRAN ODT) 4 MG Oral TABLET DISPERSIBLE Plan No "red flag" sx indicating immediate referral to the ER today. Advised patient s/s to seekmedical attention: fever, abdominal pain, unable to keep food down. Patient verbalized understanding and asked for a work note excuse to return on Monday so he can rest up. Note given. Patient Instructions I sent in zofran to help with nausea Sip on fluids throughout the day to prevent dehydration Follow up with your primary care provider if not improving in 3-4 days, sooner if worsen Continuity of care: Examination and treatment received today was given on an acute basis only, and is not a substitute for complete medical care. It is important that a relationship be established with a primary care provider. No ongoing doctor-patient relationship was established by this visit today. Gastroenteritis WHAT YOU NEED TO KNOW: Gastroenteritis, or stomach flu, is an infection of the stomach and intestines. DISCHARGE INSTRUCTIONS: Call 911 for any of the following: You have trouble breathing or a very fast pulse. Return to the emergency department if: You see blood in your diarrhea. You cannot stop vomiting. You have not urinated for 12 hours. You feel like you are going to faint. Contact your healthcare provider if: You have a fever. You continue to vomit or have diarrhea, even after treatment. You see worms in your diarrhea. Your mouth or eyes are dry. You are not urinating as much or as often. You have questions or concerns about your condition or care. Medicines: Medicines may be given to stop vomiting or diarrhea, decrease abdominal cramps, or treat an infection. Take your medicine as directed. Call your healthcare provider if you think your medicine is not helping or if you have side effects. Tell him if you are allergic to any medicine. Keep a list of the medicines, vitamins, and herbs you take. Include the amounts, and when and why you take them. Bring the list or the pill bottles to follow-up visits. Carry your medicine list with you in case of an emergency. Manage your symptoms: Drink liquids as directed. Ask your healthcare provider how much liquid to drink each day, andwhich liquids are best for you. You may also need to drink an oral rehydration solution (ORS). An ORS has the right amounts of sugar , salt, and minerals in water to replace body fluids. Eat bland foods. When you feel hungry, begin eating soft, bland foods. Examples are bananas, clear soup, potatoes, and applesauce. Do not have dairy products, alcohol, sugary drinks, or drinks with caffeine until you feel better. Rest as much as possible. Slowly start to do more each day when you begin to feel better. Prevent the spread of gastroenteritis: Gastroenteritis can spread easily. Keep yourself, your family, and your surroundings clean to help prevent the spread of gastroenteritis: Wash your hands often. Use soap and water. Wash your hands after you use the bathroom, change a child's diapers, or sneeze. Wash your hands before you prepare or eat food. Clean surfaces and do laundry often. Wash your clothes and towels separately from the rest of the laundry. Clean surfaces in your home with antibacterial truck car and bus cleaner or bleach. Clean food thoroughly and cook safely. Wash raw vegetables before you cook. Cook meat, fish, and eggs fully. Do not use the same dishes for raw meat as you do for other foods. Refrigerate any leftover food immediately. Be aware when you camp or travel. Drink only clean water. Do not drink from [place] or lakes unless you purify or boil the water first. When you travel , drink bottled water and do not add ice. Do not eat fruit that has not been peeled. Do not eat raw fish or meat that is not fully cooked. Follow up with your healthcare provider as directed: Write down your questions so you remember to ask them during your visits. 2016 [employer]. Information is for End User's use only and may not be sold, redistributed or otherwise used for commercial purposes. All illustrations and images included in CareNotes are the copyrighted property of [employer]. or [employer]. The above information is an sanitary aide only. It is not intended as medical advice for individual conditions or treatments. Talk to your doctor, nurse or pharmacist before following any medical regimen to see if it is safe and effective for you. Author: Douglas Martin NP 03/22/2019 10:25 documented in this encounter Plan of Treatment Date Type Specialty Care Team Description 04/08/2019 Office Visit Family Practice Edwige Davis MD [address] [place] [address] [phone] 07/09/2019 Ocular Visit Optometry Bubba Bahena, OD [address] [place] [address] Health Maintenance Due Date Last Done Comments ZOSTER IMMUNIZATION SERIES 2010 (1 of 2) FOOT EXAM 03/22/2019 03/22/2018, 03/22/2018 DEPRESSION SCREENING 04/12/2019 04/12/2018 HEMOGLOBIN A1C 05/25/2019 02/22/2019, 10/18/2018, 07/07/2018, Additional history exists URINE MICROALBUMIN 09/21/2019 09/20/2018, 09/15/2017 LIPID DISORDER SCREENING 02/23/2020 02/22/2019, 02/04/2019, 07/07/2018, Additional history exists Diabetic Eye Exam 07/05/2020 07/05/2018, 07/05/2018 COLONOSCOPY SCREENING 02/25/2022 02/25/2019, 02/25/2019, 02/24/2016, Additional history exists PNEUMOCOCCAL 0-64 YRS Completed 11/07/2018, 02/29/2016 INFLUENZA VACCINE Completed 03/07/2019, 03/22/2018 HPV IMMUNIZATION SERIES Aged Out No longer eligible based on patient's age to complete this topic MENINGOCOCCAL VACCINE IMM Aged Out No longer eligible based on patient's age to complete this topic documented as of this encounter Goals Goal Patient Goal Associated Recent Patient-Stated? Author Type Problems Progress Blood Pressure Blood Pressure 136/88 No Antwon, < 140/90 (03/22/2019 Milly Nieto, 9:55 AM EDT) HARRY Note: This is an individualized treatment (blood pressure) goal for Ramírez Fink: Displayed above (on the left) is your goal for blood pressure control. Your most recent blood pressure is also shown above, on the right. You should try to achieve blood pressures that are lower than your goal listed above (on the left). Weight increase vs. 18 CHF 5.9 (03/22/2019 9:55 AM Milly Hood , HARRY mo min (lbs) < 5 EDT) Note: This is an individualized treatment (congestive [...] A1c < 7.0 Diabetes 8.1 (02/22/2019 7:48 No Edwige Davis, AM EDT) Note: This is an individualized treatment (diabetes control, HgbA1C) goal for Ramírez Fink: Displayed above is your progress towards your HgbA1C goal. Your goal is shown above (on the left); your most recent HgbA1C is shown on the right. Note that lower numbers are better. Work with your Intake Clerk General Milly Hood RPA-C Note: This is an individualized treatment (frequent ED use) goal for Ramírez Fink: Please work with your Intake Clerk, who will assist you in meeting your goals of care. Weight loss vs. 18 mo Lifestyle 8.9 (03/22/2019 9:55 AM Edwige Mendez MD max (lbs) >= [...] and any After Visit Summaries. Consume a [id number] diet Lifestyle Milly Hood RPA-C Note: This [...] basis. Check your weight daily Self-management Milly Hood, REREC Note: This is an individualized self-management goal for Ramírez Fink: Please check your weight daily. Refer to the accompanying CHF treatment goal and call your doctor immediately for further instructions on how to respond to unexpected weight gain. documented as of this encounter Results Not on filedocumented in this encounter Visit Diagnoses Diagnosis Diarrhea, unspecified type - Primary Nausea and vomiting, intractability of vomiting not specified, unspecified vomiting type documented in this encounter Guarantor Name Account Type Relation to Date of Phone Billing Patient Address Ramírez Fink Personal/Family 1960 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
--- OUTSIDE RECORDS SUMMARY | 2019-04-04 10:00 | XMS REPORT | Summary of Care ---
:1960 Author Organization [facility] Address [address] [address] Care Team Providers Name Role Phone Jhonatan Davis MD Primary Care Provider Reason for Visit Auth/Cert Status Reason Specialty Diagnoses / Procedures Referred By Contact Referred To Contact Encounter Details Date Type Department Care Team Description 02/25/2019 Hospital Encounter [facility] Lori Godinez Short Procedure Preprocedure MD Jolene [address] [place], [place] [id number] [place] [address] [phone] Allergies Active Allergy Reactions Severity Noted Date Comments Penicillins Rash 06/01/2015 documented as of this encounter (statuses as of 02/26/2019) Medications Medication Sig Dispensed Refills Start Date End Date Status Tiotropium Bouse Take 2 Each by 1 Inhaler 1 11/06/2017 Active Monohydrate (SPIRIVA inhalation DAILY AT RESPIMAT) 2.5 MCG/ACT 1400. Inhalation Aero SolnIndications: SOB (shortness of breath) meclizine (ANTIVERT) Take 1 Tab by mouth 90 Tab 0 10/25/2018 Active 25 MG Oral Tab THREE TIMES DAILY NEEDED (dizziness). metFORMIN Take 2 Tabs by 120 Tab 1 01/03/2019 Active (GLUCOPHAGE) 500 MG mouth TWICE DAILY. Oral Tab sitagliptin (JANUVIA) Take 1 Tab by mouth 30 Tab 0 01/15/2019 Active 50 MG Oral Tab DAILY. metoprolol Take 1 Tab by mouth 60 Tab 5 02/04/2019 Active (LOPRESSOR) 25 MG TWICE DAILY. Oral Tab glipiZIDE (GLUCOTROL) Take 1 Tab by mouth 60 Tab 5 02/04/2019 Active 10 MG Oral Tab TWICE DAILY. atorvastatin Take 1 Tab by mouth 30 Tab 5 02/04/2019 Active (LIPITOR) 40 MG Oral DAILY. Tab albuterol HFA Take 2 Puffs by 1 Inhaler 5 02/04/2019 Active (VENTOLIN) 108 (90 inhalation EVERY Base) MCG/ACT FOUR HOURS Inhalation Aero Soln NEEDED (wheezing). albuterol (PROVENTIL, 3 mL by 50 vial 02/04/2019 Active VENTOLIN) (2.5 Inhalation-SVN MG/3ML) 0.083% route EVERY FOUR Inhalation Nebu Soln HOURS NEEDED (cough, shortness of breath). fluticasone-salmetero Take 1 INHL by 60 Each 3 02/04/2019 Active l diskus (ADVAIR inhalation TWICE DISKUS) 500-50 DAILY. MCG/DOSE Inhalation AEROSOL POWDER, BREATH ACTIVATED polyethylene glycol & Take 4,000 mL by 4000 mL 0 02/21/2019 Active electrolytes (COLYTE, mouth DIRECTED GOLYTELY) 236 g Oral for 1 dose. Recon Soln documented as of this encounter (statuses as of 02/26/2019) Active Problems Problem Noted Date BMI 40.0-44.9, [...] as of this encounter (statuses as of 02/26/2019) Resolved Problems Problem Noted Date Resolved Date Acute prostatitis 06/23/2015 09/11/2017 Sepsis due to Escherichia coli 06/22/2015 09/11/2017 Pyelonephritis 06/22/2015 09/11/2017 documented as of this encounter (statuses as of 02/26/2019) Immunizations Name Administration Dates Next Due Influenza (IM) Preservative Free 03/22/2018 PNEUMOCOCCAL POLYSACCHARIDE VACCINE 11/07/2018, 02/29/2016 documented [...] Sign Reading Time Taken Comments Blood Pressure 123/99 02/25/2019 11:55 AM EDT Pulse 79 02/25/2019 11:55 AM EDT Temperature 36.4 02/25/2019 11:30 AM EDT C (97.5 F) Respiratory Rate 18 02/25/2019 11:55 AM EDT Oxygen Saturation 94% 02/25/2019 9:26 AM EDT Inhaled Oxygen Concentration - - Weight 133.8 kg (295 lb) 02/25/2019 9:26 AM EDT Height 182.9 cm (6') 02/25/2019 9:26 AM EDT Body Mass Index 40.01 02/25/2019 9:26 AM EDT documented in this encounter Plan of Treatment Date Type Specialty Care Team Description 03/07/2019 Office Visit Family Practice Jhonatan Davis MD [address] [place] [address] [phone] 07/09/2019 Ocular Visit Optometry Bubba Bahena, OD [address] [place] [address] [phone] Health Maintenance Due Date Last Done Comments ZOSTER IMMUNIZATION SERIES 2010 (1 of 2) INFLUENZA VACCINE (#1) 2019 03/22/2018 FOOT EXAM 03/22/2019 03/22/2018, 03/22/2018 DEPRESSION SCREENING 04/12/2019 04/12/2018 HEMOGLOBIN A1C 05/25/2019 02/22/2019, 10/18/2018, 07/07/2018, Additional history exists URINE MICROALBUMIN 09/21/2019 09/20/2018, 09/15/2017 LIPID DISORDER SCREENING 02/23/2020 02/22/2019, 02/04/2019, 07/07/2018, Additional history exists Diabetic Eye Exam 07/05/2020 07/05/2018, 07/05/2018 COLONOSCOPY SCREENING 02/25/2022 02/25/2019, 02/24/2016, 02/24/2016 PNEUMOCOCCAL 0-64 YRS Completed 11/07/2018, 02/29/2016 HPV IMMUNIZATION SERIES Aged Out No longer eligible based on patient's age to complete this topic MENINGOCOCCAL VACCINE IMM Aged Out No longer eligible based on patient's age to complete this topic documented as of this encounter Goals Goal Patient Goal Associated Recent Patient-Stated? Author Type Problems Progress Blood Pressure Blood Pressure 123/99 Sarah Kapoor, < 140/90 (02/25/2019 Milly Nieto, 11:55 AM EDT) HARRY Note: This is an individualized treatment (blood pressure) goal for Ramírez Fink: Displayed above (on the left) is your goal for blood pressure control. Your most recent blood pressure is also shown above, on the right. You should try to achieve blood pressures that are lower than your goal listed above (on the left). Weight increase vs. 18 CHF 4 (02/25/2019 9:26 AM EDT) Milly Hood RPA-C mo min [...] < 7.0 Diabetes 8.1 (02/22/2019 7:48 No Jhonatan Davis, AM EDT) Note: This is an individualized treatment (diabetes control, HgbA1C) goal for Ramírez Fink: Displayed above is your progress towards your HgbA1C goal. Your goal is shown above (on the left); your most recent HgbA1C is shown on the right. Note that lower numbers are better. Work with your Bed Setter General Milly Hood RPA-C Note: This is an individualized treatment (frequent ED use) goal for Ramírez Fink: Please work with your Bed Setter, who will assist you in meeting your goals of care. Weight loss vs. 18 mo Lifestyle 10 (02/25/2019 9:26 AM Jhonatan Mendez MD max (lbs) >= 10 EDT) Note: This is an individualized lifestyle goal for Ramírez Fink: Your body mass index (BMI) is more than 30. You should lose weight. A reasonable starting goal is to lose 10 pounds. Displayed above is how many pounds you have lost thus far towards your 10 pound weight loss goal. Keep immunizations current Lifestyle Jhonatan Mendez MD Note: This is an individualized lifestyle goal for Ramírez Fink: Please be sure to keep up-to-date on recommended immunizations. For example, this would include a yearly influenza vaccine. Immunization status can be seen by looking at the Health Maintenance sections of your [facility], Plan of Care, and any After Visit Summaries. Consume a ul-jgdia-lvmf diet Lifestyle Milly Hood RPA-C Note: This is an individualized lifestyle goal for Ramírez Fink: Please do not add additional salt to your food. Additional salt may lead to fluid retention and worsen your congestive heart failure. Regular appointments with primary care Lifestyle No Milly Kapoor RPA-C provider (PCP) Note: This is an individualized lifestyle goal for Ramírez Fink: Please schedule regular visits with your primary care provider (PCP). Care provided in your PCP's office can help reduce your need for additional trips to the Emergency Room. Take all prescribed medications as Self-management Jhonatan Mendez MD directed Note: This is an [...] weight gain. documented as of this encounter Procedures Procedure Name Priority Date/Time Associated Diagnosis Comments TISSUE EXAM Routine 02/25/2019 11:16 AM Results for this EDT procedure are in the results section. COLONOSCOPY REPORT Routine 02/25/2019 10:23 AM Results for this EDT procedure are in the results section. documented in this encounter Results TISSUE EXAM (02/25/2019 11:16 AM EDT) Case Report Surgical Pathology Case: [id number] [facility] Authorizing Provider: Lori Godinez MD Collected: 02/25/2019 11:16 AM Ordering Location: [facility] Received: 02/25/2019 12:06 PM Preprocedure Pathologist: Cole Natarajan MD Specimens: 1) - cecum polyp, excision bx 2) - sigmoid colon polyp, polypectomy Clinical hx polyps [facility] Information LABORATORY FINAL DIAGNOSIS 1. Cecum, biopsy: Tubular adenoma. [facility] Electronically signed LABORATORY by Rosa Isela, 2. Sigmoid colon, polypectomy: Tubular adenoma in multiple fragments. Cole Apodaca MD on 02/26/2019 at 8:42 AM Microscopic Microscopic [facility] Description examination is LABORATORY performed. Gross Description 1. Received in a formalin container with the patient's name , medical record number and labeled "cecal excisional biopsy polyp ", is a soft gibson-white tissue fragment, 2 mm. Totally embedded in one cassette. [facility] 2. Received in a formalin container with the patient's name, medical record number and labeled "sigmoid polypectomy ", are 3 soft gibson-white tissue fragments ranging in greatest dimensions from 2 to 4 millimeters. Totally embedded in one cassette. Specimen Tissue - sigmoid colon polyp Tissue specimen (specimen) - sigmoid colon polyp Performing Organization Address City/State/Zipcode Phone Number [facility] [address] [place] [address] COLONOSCOPY REPORT (02/25/2019 10:23 AM EDT) GI Procedure [facility] Gastroenterology __ Patient Name: Ramírez Fink Procedure Date: 02/25/2019 10:23 AM Date of : 1960 Admit Type: Outpatient Age: 58 Room: 1 Gender: Male Note Status: Finalized Attending MD: LORI GODINEZ MD __ Procedure: Colonoscopy Indications: Personal history of colonic polyps Providers: LORI GODINEZ MD, Angelica Harris RN, Tarah Beasley, Zinc Plate Grainer Referring MD: JHONATAN DAVIS MD (Referring MD) CC Letter to: JHONATAN DAVIS MD (CC) Complications: No immediate complications. __ Medicines: Demerol IV (Meperidine) 25 mgs, Medications Verbally Ordered By 3 .s, Versed IV (Midazolam) 10 mgs Requesting Provider: Procedure: The patient's current medications and allergies were reviewed and recorded in the nurses notes. The patient was made aware of the risk of the procedure which can include: bleeding, infection, perforation, an adverse reaction to sedation, and a risk of missed lesions, among others. The patient appeared to understand. An opportunity for questions was provided, and an informed consent form was signed. The scope was passed under direct vision. Throughout the procedure, the patient's blood pressure, pulse EKG, and oxygen saturations were monitored continuously. The Colonoscope was introduced through the anus and advanced to the cecum, identified by appendiceal orifice and ileocecal valve. The colonoscopy was performed without difficulty. The patient tolerated the procedure well. The quality of the bowel preparation was good. Findings: The perianal and digital rectal examinations were normal. A diminutive polyp was found in the cecum. The polyp was sessile. The polyp was removed with a cold biopsy forceps. Resection and retrieval were complete. A medium polyp was found in the sigmoid colon. The polyp was semi-pedunculated. The polyp was removed with a hot snare. Resection and retrieval were complete. Moderate Sedation: Moderate (conscious) sedation was administered by the endoscopy nurse and supervised by the endoscopist. The following parameters were monitored: oxygen saturation, heart rate, blood pressure, respiratory rate, EKG, adequacy of pulmonary ventilation, and response to care. Total physician intraservice time was 23 minutes. Impression: - One diminutive polyp in the cecum, removed with a cold biopsy forceps. Resected and retrieved. - One medium polyp in the sigmoid colon, removed with a hot snare. Resected and retrieved. Recommendation: - Repeat colonoscopy in 3 years for surveillance based on pathology results. Procedure Code(s): --- Professional --- 43728, Colonoscopy, flexible; with removal of tumor(s), polyp(s), or other lesion(s) by snare technique 50563, 59, Colonoscopy, flexible; with biopsy, single or multiple G0500, Moderate sedation services provided by the same physician or other qualified health foster care social worker performing a gastrointestinal endoscopic service that sedation supports, requiring the presence of an independent trained observer to assist in the monitoring of the patient's level of consciousness and physiological status; initial 15 minutes of intra-service time; patient age 5 years or older (additional time may be reported with 23648, as appropriate) 24080, Moderate sedation services provided by the same physician or other qualified health foster care social worker performing the diagnostic or therapeutic service that the sedation supports, requiring the presence of an independent trained observer to assist in the monitoring of the patient's level of consciousness and physiological status; each additional 15 minutes intraservice time (List separately in addition to code for primary service) Diagnosis Code(s): --- Professional --- D12.0, Benign neoplasm of cecum D12.5, Benign neoplasm of sigmoid colon Z86.010, Personal history of colonic polyps CPT copyright 2017 [employer]. All rights reserved. The codes documented in this report are preliminary and upon him coder review may be revised to meet current compliance requirements. LORI GODINEZ MD 02/25/2019 11:27:55 AM This report has been signed electronically. Number of Addenda: 0 Note Initiated On: 02/25/2019 10:23 AM Specimen Performing Organization Address City/State/Zipcode Phone Number [facility] documented in this encounter Administered Medications Medication Order MAR Action Action Date Dose Rate Site MEPERIDINE HCL 25 MG/ML IJ SOLN 1 dose, Starting Mon02/25/19 at 1014, Until Mon02/25/19 at 1404, ANGELICA HARRIS: cabinet override, MIDAZOLAM HCL 5 MG/5ML IJ SOLN 1 dose, Starting Mon02/25/19 at 1014, Until Mon02/25/19 at 1404, ANGELICA HARRIS: cabinet override, documented in this encounter Guarantor Name Account Type Relation to Date of Phone Billing Patient Address Ramírez Fink Personal/Family 1960 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
[2019-04-04 10:12] VITALS: BP 150/85
[2019-04-04] MEDS ORDERED: Acetaminophen TAB* 325 MG PO ONE (10:32)
--- NOTE | 2019-04-04 10:35 | UC ---
Back Pain HPI - HPI Summary HPI Summary: 59-year-old male comes in with a chief complaint of low back pain. The pain started while lifting at work working overnight on April 03, 2019 through April 04, 2019. Pains in the low back it does go down into the buttocks bilaterally. When he was sitting he felt like his legs were numb but when he gets up and numbness goes away. Pain is worse when he goes from sitting to standing. No complaint of weakness or difficulty controlling urine or bowels. He took some acetaminophen without much relief. He is on a blood thinner. - History of Current Complaint Chief Complaint: UCBackPain Stated Complaint: BACK INJURY AT WORK Time Seen by Provider: 04/04/19 10:15 Pain Intensity: 10 - Allergies/Home Medications Allergies/Adverse Reactions: Allergies Allergy/AdvReac Type Severity Reaction Status Date / Time Penicillins Allergy Rash Verified 04/04/19 10:12 PMH/Surg Hx/FS Hx/Imm Hx Previously Healthy: Yes Endocrine History: Diabetes Cardiovascular History: Hypertension Respiratory History: COPD, Pulmonary Embolism Other History Of: Anticoagulant Therapy - Surgical History Surgical History: Yes Surgery Procedure, Year, and Place: appendectomy - Family History Known Family History: Positive: Hypertension - Social History Alcohol Use: None Substance Use Type: None Smoking Status (MU): Former Smoker Length of Time of Smoking/Using Tobacco: 30+ years When Did the Patient Quit Smoking/Using Tobacco: 5 yrs Review of Systems All Other Systems Reviewed And Are Negative: Yes Constitutional: Positive: Negative Skin: Positive: Negative Eyes: Positive: Negative ENT: Positive: Negative Respiratory: Positive: Negative Cardiovascular: Positive: Negative Gastrointestinal: Positive: Negative Genitourinary: Positive: Negative Motor: Positive: Other - SEE HPI Neurovascular: Positive: Negative Musculoskeletal: Positive: Other: - SEE HPI Neurological: Positive: Numbness - SEE HPI Psychological: Positive: Negative Is Patient Immunocompromised?: No Physical Exam Triage Information Reviewed: Yes Appearance: Well-Appearing, Well-Nourished, Pain Distress - MILD WITH ROM Vital Signs: Initial Vital Signs Temp 97.6 F 04/04/19 10:05 Pulse 80 04/04/19 10:05 Resp 20 04/04/19 10:05 BP 150/85 04/04/19 10:05 Pulse Ox 98 04/04/19 10:05 Vital Signs Reviewed: Yes Eye Exam: Normal Eyes: Positive: Conjunctiva Clear Neck: Positive: Supple Respiratory: Positive: No respiratory distress Musculoskeletal: Positive: Other: - Tender to palpation lower lumbar area and also bilaterally at the same level. Legs have full range of motion full- strength normal plantarflexion and dorsiflexion knee flexion extension and hip flexion bilaterally. Hip flexion bilaterally does increase the pain in the back. No sensation deficit. Neurological: Positive: Alert Psychological: Positive: Age Appropriate Behavior Skin Exam: Normal Back Pain Course/Dx - Course Course Of Treatment: No focal neurologic deficit on examination. Patient did have transient numbness when he was sitting but it improved when he got up and moved around. He has no numbness on exam in clinic now. Patient is on blood thinners and he cannot take nonsteroidal anti-inflammatory. Plan is acetaminophen lidocaine patch and Flexeril and follow up with occupational medicine. I discussed if there is any neurologic symptoms weakness numbness difficulty controlling urine or bowel she needs to get seen again right away to avoid permanent neurologic damage. - Differential Dx/Diagnosis Provider Diagnosis: Low back pain Discharge ED - Sign-Out/Discharge Documenting (check all that apply): Patient Departure All imaging exams completed and their final reports reviewed: No Studies - Discharge Plan Condition: Stable Disposition: HOME Prescriptions: Cyclobenzaprine TAB* [Flexeril 10 MG TAB*] 10 mg PO TID PRN #15 tab MDD 3 PRN Reason: Pain - Moderate Lidocaine PATCH 5%* [Lidoderm 5% Patch*] 2 patch TRANSDERM DAILY #20 patch Patient Education Materials: Acute Low Back Pain (ED), Lower Back Exercises (ED ) Forms: *Work Release Referrals: Edwige Davis MD [Primary Care Provider] - Alfredito Bethea MD [Medical Doctor] - Additional Instructions: FOLLOW UP WITH YOUR DR BETHEA, OCCUPATIONAL MEDICINE. GET RECHECKED SOONER IF YOUR CONDITION WORSENS; PAIN, WEAKNESS, NUMBNESS, DIFFICULTY CONTROLLING BOWEL OR BLADDER OR ANY QUESTIONS OR CONCERNS. - Billing Disposition and Condition Condition: STABLE Disposition: Home
== END 2019-04-04 10:40 | disposition home or self-care (01) ==
LOC: UCEAST 09:50
DX: M54.5 Low back pain (principal); E11.9 Type 2 diabetes mellitus without complications; I10 Essential (primary) hypertension; J44.9 Chronic obstructive pulmonary disease, unspecified; Z86.711 Personal history of pulmonary embolism; Z88.0 Allergy status to penicillin; Z87.891 Personal history of nicotine dependence
CPT/HCPCS: 99212; A9270-GY; G0463

== ENCOUNTER 2019-09-13 01:14 | Emergency (ER) | payer OTHER ==
--- OUTSIDE RECORDS SUMMARY | 2019-09-13 01:21 | XMS REPORT | Summary of Care ---
:1960 Author Organization [facility] Address [address] [place] [address] Care Team Providers Name Role Phone Edwige Davis Primary Care Provider Reason for Visit Reason Comments Follow Up labs , cmp and A1c , Patient aslo wants to discuss medical clearance to drive Encounter Details Date Type Department Care Team Description 07/16/2019 Office Visit Jaki Davis, Type 2 diabetes mellitus without complication, without long-term current use of insulin (HCC) (Primary Dx ); Practice MD Edwige Need for vaccination; [address] [place] [address] [phone] Allergies Active Allergy Reactions Severity Noted Date Comments Penicillins Rash 06/01/2015 documented as of this encounter (statuses as of 07/16/2019) Medications Medication Sig Dispensed Refills Start Date End Date Status Tiotropium Gould Take 2 Each by 1 Inhaler 1 11/06/2017 Active Monohydrate inhalation DAILY (SPIRIVA RESPIMAT) AT 1400. 2.5 MCG/ACT Inhalation Aero SolnIndications: SOB (shortness of breath) meclizine Take 1 Tab by 90 Tab 0 10/25/2018 Active (ANTIVERT) 25 MG mouth THREE Oral Tab TIMES DAILY NEEDED (dizziness). metFORMIN Take 2 Tabs by 120 Tab 1 01/03/2019 Active (GLUCOPHAGE) 500 mouth TWICE MG Oral Tab DAILY. metoprolol Take 1 Tab by 60 Tab 5 02/04/2019 Active (LOPRESSOR) 25 MG mouth TWICE Oral Tab DAILY. rivaroxaban Take 1 Tab by 30 Tab 5 02/04/2019 Active (XARELTO) 20 MG mouth DAILY. Oral Tab oxybutynin Take 0.5 Tabs by 90 Tab 2 02/04/2019 Active (DITROPAN) 5 MG mouth THREE Oral Tab TIMES DAILY. Glucose Blood In 1 Strip by In 180 Strip 3 02/04/2019 Active Vitro Strip Vitro route TWICE DAILY. glipiZIDE Take 1 Tab by 60 Tab 5 02/04/2019 Active (GLUCOTROL) 10 MG mouth TWICE Oral Tab DAILY. Blood Glucose 1 Each by Does 1 Each 0 02/04/2019 Active Monitoring Suppl not apply route (FREESTYLE LITE) DIRECTED. DX: Does not apply E11.9 MAR: Device 10/25/17 atorvastatin Take 1 Tab by 30 Tab 5 02/04/2019 Active (LIPITOR) 40 MG mouth DAILY. Oral Tab albuterol HFA Take 2 Puffs by 1 Inhaler 5 02/04/2019 Active (VENTOLIN) 108 (90 inhalation EVERY Base) MCG/ACT FOUR HOURS Inhalation Aero NEEDED Soln (wheezing). albuterol 3 mL by 50 vial 5 02/04/2019 Active (PROVENTIL, Inhalation-SVN VENTOLIN) (2.5 route EVERY FOUR MG/3ML) 0.083% HOURS NEEDED Inhalation Nebu (cough, Soln shortness of breath). fluticasone-salmet Take 1 INHL by 60 Each 3 02/04/2019 Active adithya diskus inhalation TWICE (ADVAIR DISKUS) DAILY. 500-50 MCG/DOSE Inhalation AEROSOL POWDER, BREATH ACTIVATED JANUVIA 50 MG Oral TAKE ONE TABLET 30 Tab 5 06/12/2019 Active Tab BY MOUTH EVERY DAY Alogliptin Take 25 mg by 30 Tab 0 06/18/2019 Active Benzoate (NESINA) mouth DAILY. 25 MG Oral Tab sitagliptin Take 1 Tab by 30 Tab 5 06/04/2019 Discontinued (JANUVIA) 50 MG mouth DAILY. 0 Oral Tab documented as of this encounter (statuses as of 07/16/2019) Active Problems Problem Noted Date BMI 40.0-44.9, [...] as of this encounter (statuses as of 07/16/2019) Resolved Problems Problem Noted Date Resolved Date Acute prostatitis 06/23/2015 09/11/2017 Sepsis due to Escherichia coli 06/22/2015 09/11/2017 Pyelonephritis 06/22/2015 09/11/2017 documented as of this encounter (statuses as of 07/16/2019) Immunizations Name Administration Dates Next Due Influenza (IM) Preservative Free 03/07/2019, 03/22/2018 PNEUMOCOCCAL POLYSACCHARIDE VACCINE 11/07/2018, 02/29/2016 TDAP Vaccine 07/16/2019 documented as of this encounter Social History [...] Sign Reading Time Taken Comments Blood Pressure 122/88 07/16/2019 3:38 PM EST Pulse 92 07/16/2019 3:38 PM EST Temperature 37.2 07/16/2019 3:38 PM EST C (98.9 F) Respiratory Rate - - Oxygen Saturation 95% 07/16/2019 3:38 PM EST Inhaled Oxygen Concentration - - Weight 135 kg (297 lb 11.2 oz) 07/16/2019 3:38 PM EST Height 182.9 cm (6') 07/16/2019 3:38 PM EST Body Mass Index 40.38 07/16/2019 3:38 PM EST documented in this encounter Patient Instructions Patient InstructionsEdwige Davis MD - 07/16/2019 4:00 PM EST1. Increase Januvia to 50 mg 2 times a day 2. Call in 2 weeks with sugar diary 3. Schedule fasting blood tests in 2 months documented in this encounter Progress Notes Edwige Davis MD - 07/16/2019 4:00 PM EST PATIENT: Ramírez Fink : 1960 DATE OF SERVICE: 07/16/2019 SUBJECTIVE: 59-y.o. male for follow up of diabetes. Diabetic Review of Systems - medication compliance: compliant all of the time, diabetic diet compliance: compliant most of the time, home glucose monitoring: is performed regularly, fasting values range 120-130, non fasting values range 150-200. Also seen recently at Sleep disorders clinic. Download from CPAP shows under using of CPAP (4 hours a night) Patient advised that he needs to use CPAP most of his sleeping time Past Medical History: Diagnosis Date COPD (chronic obstructive pulmonary disease) ([facility]) DM (diabetes mellitus) ([facility]) High cholesterol HTN (hypertension) Hypertension MICHELLE on CPAP Pulmonary embolism ([facility]) 03/25, 07/26 Type 2 diabetes mellitus without complication, without long-term current use of insulin ([facility])12/21/2017 Current Outpatient Medications Medication Sig albuterol (PROVENTIL, VENTOLIN) (2.5 MG/3ML) 0.083% Inhalation Nebu Soln 3 mL by Inhalation-SVN route EVERY FOUR HOURS NEEDED (cough, shortness of breath). albuterol HFA (VENTOLIN) 108 (90 Base) MCG/ACT Inhalation Aero Soln Take 2 Puffs by inhalation EVERY FOUR HOURS NEEDED (wheezing). Alogliptin Benzoate (NESINA) 25 MG Oral Tab Take 25 mg by mouth DAILY. atorvastatin (LIPITOR) 40 MG Oral Tab Take 1 Tab by mouth DAILY. Blood Glucose Monitoring Suppl (FREESTYLE LITE) Does not apply Device 1 Each by Does not apply route DIRECTED. DX: E11.9 MAR: 10/25/17 fluticasone-salmeterol diskus (ADVAIR DISKUS) 500-50 MCG/DOSE Inhalation AEROSOL POWDER, BREATH ACTIVATED Take 1 INHL by inhalation TWICE DAILY. glipiZIDE (GLUCOTROL) 10 MG Oral Tab Take 1 Tab by mouth TWICE DAILY. Glucose Blood In Vitro Strip 1 Strip by In Vitro route TWICE DAILY. JANUVIA 50 MG Oral Tab TAKE ONE TABLET BY MOUTH EVERY DAY meclizine (ANTIVERT) 25 MG Oral Tab Take 1 Tab by mouth THREE TIMES DAILY NEEDED (dizziness). metFORMIN (GLUCOPHAGE) 500 MG Oral Tab Take 2 Tabs by mouth TWICE DAILY. metoprolol (LOPRESSOR) 25 MG Oral Tab Take 1 Tab by mouth TWICE DAILY. oxybutynin (DITROPAN) 5 MG Oral Tab Take 0.5 Tabs by mouth THREE TIMES DAILY. rivaroxaban (XARELTO) 20 MG Oral Tab Take 1 Tab by mouth DAILY. Tiotropium Gould Monohydrate (SPIRIVA RESPIMAT) 2.5 MCG/ACT Inhalation Aero Soln Take 2 Each by inhalation DAILY AT 1400. No current facility-administered medications for this visit. OBJECTIVE: BP 122/88 (BP Location: Left arm, Patient Position: Sitting) | Pulse 92 | Temp 98.9 F (37.2 C) (Tympanic) | Ht 6' (1.829 m) | Wt 297 lb 11.2 oz (135 kg) | SpO2 95% | BMI 40.38 kg/m General appearance: alert, well appearing, and in no distress. HGA1C - elevated, CMP- high sugar Component Latest Ref Rng & Units 06/18/2019 06/18/2019 9:46 AM 9:46 AM Sodium 134 - 145 mmol/L 138 Potassium 3.5 - 5.1 mmol/L 4.4 Chloride 98 - 107 mmol/L 102 CO2 22 - 30 mmol/L 25 Calcium 8.3 - 10.1 mg/dl 9.8 Albumin 3.5 - 5.0 g/dl 4.6 BUN 9 - 20 mg/dl 17 Creatinine 0.8 - 1.5 mg/dl 0.9 Glucose (Lab) 70 - 99 mg/dl 197 (H) Protein,Total 6.3 - 8.2 g/dl 7.9 Total Bilirubin 0.0 - 1.1 MG/DL 1.1 AST 17 - 59 U/L 37 ALT 21 - 72 U/L 50 ALKALINE PHOSPHATASE 40 - 150 U/L 48 eGFR See Interpretation Below ml/min/1.73ml Sq >60 BUN/Creatinine Ratio 6 - 22 RATIO 19 Anion Gap 3 - 11 mmol/L 11 A/G Ratio 0.8 - 2.0 ratio 1.4 Glycohemoglobin - POCT <=5.6 % 8.8 (H) I have recommended the following steps for improving diabetic care and outcome to him: diabetic dietdiscussed., low cholesterol diet, weight control and daily exercise discussed and glycohemoglobin and other lab monitoring discussed. ICD-9-CM ICD-10-CM 1. Type 2 diabetes mellitus without complication, without long-term current use of insulin (HCC) 250.00 E11.9 COMPREHENSIVE METABOLIC PANEL GLYCOHEMOGLOBIN A1C 2. Need for vaccination V05.9 Z23 IA TET, DIP & ACEL PERTUSSIS(DX Z23) 3. Mixed hyperlipidemia 272.2 E78.2 COMPREHENSIVE METABOLIC PANEL LIPID PROFILE Patient Instructions 1. Increase Januvia to 50 mg 2 times a day 2. Call in 2 weeks with sugar diary 3. Schedule fasting blood tests in 2 months Author: Edwige Davis MD 07/16/2019 22:18 documented in this encounter Plan of Treatment Date Type Specialty Care Team Description 08/15/2019 Ocular Visit Optometry Bubba Bahena, OD [address] [place] [address] [phone] 10/15/2019 Lab Internal Medicine Name Type Priority Associated Diagnoses Order Schedule COMPREHENSIVE METABOLIC Lab Routine Type 2 diabetes mellitus Expected: PANEL without complication, 07/16/2019 without long-term current (Approximate), use of insulin (HCC) Expires: 07/16/2020 Mixed hyperlipidemia LIPID PROFILE Lab Routine Mixed hyperlipidemia Expected: 07/16/2019 (Approximate), Expires: 07/16/2020 GLYCOHEMOGLOBIN A1C Lab Routine Type 2 diabetes mellitus Expected: without complication, 07/16/2019 without long-term current (Approximate), use of insulin (HCC) Expires: 07/16/2020 Health Maintenance Due Date Last Done Comments DTaP/Tdap/Td Vaccines ( - 1971 Tdap) HEMOGLOBIN A1C 09/17/2019 06/18/2019, 02/22/2019, 10/18/2018, Additional history exists URINE MICROALBUMIN 09/21/2019 09/20/2018, 09/15/2017 LIPID DISORDER SCREENING 02/23/2020 02/22/2019, 02/04/2019, 07/07/2018, Additional history exists DEPRESSION SCREENING 04/08/2020 04/08/2019, 04/08/2019 FOOT EXAM 04/08/2020 04/08/2019, 04/08/2019, 03/22/2018 ZOSTER IMMUNIZATION SERIES 06/04/2020 Postponed from (1 of 2) 2010 (Vaccine not available) Diabetic Eye Exam 07/05/2020 07/05/2018, 07/05/2018, 07/05/2018, Additional history exists Colonoscopy 02/25/2022 02/25/2019, 02/25/2019, 02/24/2016, Additional history exists PNEUMOCOCCAL 0-64 YRS Completed 11/07/2018, 02/29/2016 INFLUENZA VACCINE Completed 03/07/2019, 03/22/2018 HEPATITIS A IMMUNIZATION Aged Out No longer eligible SERIES based on patient's age to complete this topic HPV IMMUNIZATION SERIES Aged Out No longer eligible based on patient's age to complete this topic MENINGOCOCCAL VACCINE IMM Aged Out No longer eligible based on patient's age to complete this topic documented as of this encounter Goals Goal Patient Goal Associated Recent Patient-Stated? Author Type Problems Progress Blood Pressure Blood Pressure 122/88 No Antwon, < 140/90 (07/16/2019 Milly Nieto, 3:38 PM EST) HARRY Note: This is an individualized treatment (blood pressure) goal for Ramírez Fink: Displayed above (on the left) is your goal for blood pressure control. Your most recent blood pressure is also shown above, on the right. You should try to achieve blood pressures that are lower than your goal listed above (on the left). Weight increase vs. 18 CHF 7.5 (07/16/2019 3:38 PM Milly Hood , REJI-C mo min (lbs) < 5 EST) Note: This is an individualized treatment (congestive [...] the left). Glycohemoglobin A1c < 7.0 Diabetes 8.8 (06/18/2019 9:46 No Edwige Davis, AM EST) Note: This is an individualized treatment (diabetes control, HgbA1C) goal for Ramírez Fink: Displayed above is your progress towards your HgbA1C goal. Your goal is shown above (on the left); your most recent HgbA1C is shown on the right. Note that lower numbers are better. Work with your Air Brake Mechanic General Milly Hood RPA-C Note: This is an individualized treatment (frequent ED use) goal for Ramírez Fink: Please work with your Air Brake Mechanic, who will assist you in meeting your goals of care. Weight loss vs. 18 mo Lifestyle 5.4 (07/16/2019 3:38 PM Edwige Mendez MD max (lbs) >= 10 EST) Note: This is an individualized lifestyle goal [...] and any After Visit Summaries. Consume a [id number] diet Lifestyle Milly Hood RPA-C Note: This [...] ongoing basis. Check your weight daily Self-management No Milly Kapoor, RPA-C Note: This is an individualized self-management goal for Ramírez Fink: Please check your weight daily. Refer to the accompanying CHF treatment goal and call your doctor immediately for further instructions on how to respond to unexpected weight gain. documented as of this encounter Results Not on filedocumented in this encounter Visit Diagnoses Diagnosis Need for vaccination Need for prophylactic vaccination and inoculation against unspecified single disease Type 2 diabetes mellitus without complication, without long-term current use of insulin (HCC) Mixed hyperlipidemia documented in this encounter Guarantor Name Account Type Relation to Date of Phone Billing Patient Address Ramírez Fink Personal/Family 1960 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
[2019-09-13 01:40] LABS: ABS Basophils 0.1 10^3/ul (0-0.2); ABS Eosinophils 0.3 10^3/ul (0-0.6); ABS Lymphocytes 2.3 10^3/ul (1.0-4.8); ABS Monocytes 0.7 10^3/ul (0-0.8); ABS Neutrophils 6.1 10^3/ul (1.5-7.7); Eosinophil % 2.8 %; Hematocrit 43 % (42-52); Lymphocyte % 24.8 %; Mean Corpuscular HGB Conc 35 g/dL (31-36); Mean Corpuscular Hemoglobin 30 pg (27-31); Mean Corpuscular Volume 85 fL (80-94); Mean Platelet Volume 8.8 fL (7.4-10.4); Platelet Count 191 10^3/uL (150-450); Red Cell Distribution Width 14 % (10-15); White Blood Count 9.4 10^3/uL (3.5-10.8)
--- NOTE | 2019-09-13 01:45 | ED ---
Shortness of Breath - HPI Summary HPI Summary: This pt is a 59 Y/O M presenting to [facility] with a CC of CP that began at 1999 this evening while he was getting ready for bed. He states that he became SOB and had increased pain on the L side of his chest when he took a deep breath. He states that the pain is still present when he breaths and rates it a 2/10 in severity. He denies any diaphoresis, N/V, headaches, coughs, fevers, and chills. He states that the pain was similar to when he had a pulmonary embolism 7 years ago. He states that since he began taking metoprolol for his HTN. He has a PMHx of COPD and DM. He denies any alleviating factors. He states that he has smoked tobacco extensively in the past. - History of Current Complaint Chief Complaint: EDChestPainROMI Time Seen by Provider: 09/13/19 01:24 Hx Obtained From: Patient Onset/Duration: Sudden Onset, Lasting Hours - 6, Still Present Timing: Constant Current Severity: Mild Dyspnea At: Rest Aggravating Factors: Deep Breaths Alleviating Factors: Nothing Associated Signs & Symptoms: Negative - diaphoresis, N/V, headaches, coughs, fevers, and chills. - Allergy/Home Medications Allergies/Adverse Reactions: Allergies Allergy/AdvReac Type Severity Reaction Status Date / Time Penicillins Allergy Rash Verified 09/13/19 01:28 Home Medications: Home Medications Metoprolol Succinate XL TAB* [Toprol XL TAB*] 1 tab PO BID 10/09/17 [History Confirmed 09/13/19] glipiZIDE TAB* [Glucotrol TAB*] 10 mg PO BID 10/09/17 [History Confirmed ] Atorvastatin* [Lipitor 20 MG*] 40 mg PO DAILY 10/12/17 [History Confirmed ] Tiotropium CAPSULE (NF) [Spiriva CAPSULE (NF)] 1 cap.inh INH DAILY 12/19/17 [ History Confirmed 09/13/19] Albuterol HFA INHALER* [Ventolin HFA Inhaler*] 2 puff INH Q4H PRN #0 12/20/17 [ Rx Confirmed 09/13/19] Fluticasone HFA 110 mcg(NF) [Flovent HFA 110 mcg(NF)] 1 puff INH DAILY 04/23/18 [History Confirmed 09/13/19] metFORMIN* [Glucophage 500 MG TAB *] 500 mg PO BID 12/27/18 [History Confirmed 09/13/19] Oxybutynin TAB* [Ditropan TAB*] 5 mg PO BID 02/26/19 [History Confirmed 09/13/19 ] Rivaroxaban TAB(*) [Xarelto 20 mg] 20 mg PO DAILY 02/26/19 [History Confirmed ] Cyclobenzaprine TAB* [Flexeril 10 MG TAB*] 10 mg PO TID PRN #15 tab MDD 3 [Rx Confirmed 09/13/19] Lidocaine PATCH 5%* [Lidoderm 5% Patch*] 2 patch TRANSDERM DAILY #20 patch 04/04 [Rx Confirmed 09/13/19] PMH/Surg Hx/FS Hx/Imm Hx Previously Healthy: Yes Endocrine/Hematology History: Reports: Hx Anticoagulant Therapy, Hx Diabetes - Type 2, Other Endocrine/Hematological Disorders - HLD Cardiovascular History: Reports: Hx Hypertension Respiratory History: Reports: Hx Asthma, Hx Chronic Obstructive Pulmonary Disease (COPD), Other Respiratory Problems/Disorders - PE 3 years ago Sensory History: Reports: Hx Contacts or Glasses Denies: Hx Hearing Aid Opthamlomology History: Reports: Hx Contacts or Glasses - Cancer History Cancer Type, Location and Year: None reported Hx Chemotherapy: No Hx Radiation Therapy: No - Surgical History Surgical History: Yes Surgery Procedure, Year, and Place: appendectomy - Immunization History Immunizations Up to Date: Yes Infectious Disease History: No Infectious Disease History: Denies: Traveled Outside the [place] in Last 30 Days - Family History Known Family History: Positive: Hypertension - Social History Occupation: Retired Lives: With Family Alcohol Use: None Hx Substance Use: No Substance Use Type: Reports: None Hx Tobacco Use: Yes Smoking Status (MU): Former Smoker Length of Time of Smoking/Using Tobacco: 30+ years Review of Systems Negative: Fever, Chills, Skin Diaphoresis Positive: Chest Pain Positive: Shortness Of Breath. Negative: Cough Negative: Vomiting, Nausea Negative: Headache All Other Systems Reviewed And Are Negative: Yes Physical Exam - Summary Physical Exam Summary: Constitutional: Well-developed, Well-nourished, Alert. (-) Distressed Skin: Warm, Dry HENT: Normocephalic; Atraumatic Eyes: Conjunctiva normal Neck: Musculoskeletal ROM normal neck. (-) JVD, (-) Stridor, (-) Tracheal deviation Cardio: Rhythm regular, rate normal, Heart sounds normal; Intact distal pulses; The pedal pulses are 2+ and symmetric. Radial pulses are 2+ and symmetric. (-) Murmur Pulmonary/Chest wall: Effort normal. (-) Respiratory distress, (-) Wheezes, (-) Rales Abd: Soft, (-) tenderness, (-) Distension, (-) Guarding, (-) Rebound Musculoskeletal: (-) Edema Lymph: (-) Cervical adenopathy Neuro: Alert, Oriented x3 Psych: Mood and affect Normal Triage Information Reviewed: Yes Vital Signs On Initial Exam: Initial Vitals Temp Pulse Resp BP Pulse Ox 97.0 F 82 16 127/83 93 09/13/19 01:15 09/13/19 01:15 09/13/19 01:15 09/13/19 01:15 09/13/19 01:15 Vital Signs Reviewed: Yes Procedures - Sedation Patient Received Moderate/Deep Sedation with Procedure: No Diagnostics - Vital Signs Vital Signs Temp Pulse Resp BP Pulse Ox 09/13/19 01:28 21 127/83 09/13/19 01:15 97.0 F 82 16 127/83 93 - Laboratory Result Diagrams: 09/13/19 01:34 09/13/19 01:34 Lab Statement: Any lab studies that have been ordered have been reviewed, and results considered in the medical decision making process. - Radiology CXR Radiology Interpretation Completed By: ED Physician Summary of Radiographic Findings: No acute processes. Pending offical review. - EKG 0116 Cardiac Rate: NL - 79 BPM EKG Rhythm: Sinus Rhythm ST Segment: Normal Ectopy: None Summary of EKG Findings: An EKG at 0116 reveals NSR at 79 BPM, nml axis, nml intervals. No STEMI. No acute changes. Interpreted by Dr. Boyd at 09/13/2019 0120. Course/Dx - Course Course Of Treatment: This pt is a 59 Y/O M presenting to [facility] with a CC of CP that began at 1999 this evening while he was getting ready for bed. He states that he became SOB and had increased pain on the L side of his chest when he took a deep breath. He states that the pain is still present when he breaths and rates it a 2/10 in severity. He denies any diaphoresis, N/V, headaches, coughs, fevers, and chills. He has no acute abnormalities on his PE. CXR: No acute processes. An EKG at 0116 reveals NSR at 79 BPM, nml axis, nml intervals. No STEMI. No acute changes. His labratory values have no acute abnormalities and his troponin was stable throughout his ED course. He will be discharged home with a Dx of chest pain. - Diagnoses Provider Diagnoses: Chest pain Discharge ED - Sign-Out/Discharge Documenting (check all that apply): Patient Departure - discharge - Discharge Plan Condition: Good Disposition: HOME Patient Education Materials: Dyspnea (ED) Forms: *Work Release Referrals: Edwige Davis MD [Primary Care Provider] - 3 Days - Billing Disposition and Condition Condition: GOOD Disposition: Home - Attestation Statements Document Initiated by Tito: Yes Documenting Scribe: Viktor Jaimes Provider For Whom Tito is Documenting (Include Credential): Cole Boyd MD Scribe Attestation: Viktor Gil, scribed for Cole Boyd MD on 09/13/19 at 0534. Scribe Documentation Reviewed: Yes Provider Attestation: The documentation as recorded by the Viktor coon accurately reflects the service I personally performed and the decisions made by me, Cole Boyd MD Status of Scribe Document: Viewed
[2019-09-13 01:46] LABS: INR 1.63 (0.82-1.09)
[2019-09-13 01:57] LABS: Albumin 4.1 g/dL (3.2-5.2); Albumin/Globulin Ratio 1.5 (1-3); BUN/Creatinine Ratio 17.2 (8-20); Calcium 9.1 mg/dL (8.6-10.3); EGFR African American 93.6 (>60); EGFR Non-African American 77.4 (>60); Globulin 2.7 g/dL (2-4); Potassium 4.1 mmol/L (3.5-5.0); Total Bilirubin 0.7 mg/dL (0.2-1.0); Total Protein 6.8 g/dL (6.4-8.9)
[2019-09-13 02:00] LABS: Troponin I 0.01 ng/mL (<0.03)
[2019-09-13 05:15] VITALS: BP 125/79
== END 2019-09-13 05:15 | disposition home or self-care (01) ==
LOC: ED 01:14
DX: R07.89 Other chest pain (principal); R06.02 Shortness of breath; E11.9 Type 2 diabetes mellitus without complications; Z79.84 Long term (current) use of oral hypoglycemic drugs; I10 Essential (primary) hypertension; J44.9 Chronic obstructive pulmonary disease, unspecified; Z86.711 Personal history of pulmonary embolism; Z79.01 Long term (current) use of anticoagulants; Z79.51 Long term (current) use of inhaled steroids; Z79.899 Other long term (current) drug therapy; Z88.0 Allergy status to penicillin; Z87.891 Personal history of nicotine dependence
CPT/HCPCS: 36415; 71046; 80053; 84484; 85025; 85379; 85610; 93005; 99283